=== PATIENT | male | born 1945 | race Caucasian/White ===

== ENCOUNTER → 2024-08-22 | Outpatient (CLI) | payer MEDICARE, SELFPAY ==
--- NOTE | 2024-08-22 12:15 | CT_ITS ---
PROCEDURE: EXTREMITY LOWER WITHOUT CONTRA 08/22/2024 REASON FOR EXAM: PAIN IN LEFT KNEE TECHNIQUE: Axial CT images of the left knee obtained with intravenous contrast. Coronal and Sagittal reconstruction series were provided. One or more dose reduction techniques were used (e.g., Automated exposure control, adjustment of the mA and/or kV according to patient size, use of iterative reconstruction technique). COMPARISON: None FINDINGS: See impression CT/Extremity Lower without Contra IMPRESSION: Advanced tricompartmental left knee osteoarthritis including near [id number] articulation, subchondral sclerosis/cysts and marginal osteophytes. Chondrocalcinosis. Small left knee joint effusion with mild synovial thickening. Small David's cyst. Vascular calcifications. Mild left hip osteoarthritis. Mild Achilles tendinopathy. 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 Reading Location: [facility]
== END | disposition home or self-care (01) ==
PROVIDERS: Referring Provider Specialist; Visit Provider Specialist
DX: Z01.810 Encounter for preprocedural cardiovascular examination (principal); M17.11 Unilateral primary osteoarthritis, right knee; M25.562 Pain in left knee; Z01.818 Encounter for other preprocedural examination
CPT/HCPCS: 73700

== ENCOUNTER 2024-09-23 06:56 | Observation (INO) | payer MEDICARE, SELFPAY ==
--- NOTE | 2024-08-22 11:53 | EKG12_ITS ---
Test Reason : PREOP Blood Pressure : */* mmHG Vent. Rate : 52 BPM Atrial Rate : 52 BPM P-R Int : 192 ms QRS Dur : 90 ms QT Int : 426 ms P-R-T Axes : 18 2 -4 degrees QTcB Int : 396 ms Sinus bradycardia Otherwise normal ECG Confirmed by Edgar Epperson ([id number]), editor news MAXWELL ALVAREZ ([id number]) on 08/23/2024 12:50:35 PM Referred By: Brody Herrera Confirmed By: Edgar Epperson
--- NOTE | 2024-08-26 15:13 | PAT.ANESEVAL ---
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 When Was Last Pacemaker Check QUESTION #4 FULL TEXT: You/Your Family Experience fever (hyperthermia) with Anesthesia Last Oral Intake Last Oral intake: Last Oral Intake NPO since Meds taken in AM with sips of water? Meds patient instructed to take am of surgery PONV PONV - metal engraver: PONV - metal engraver Female No 08/26/24 10:24 HX of Motion Sickness No 08/26/24 10:24 HX of N/V After Surgery No 08/26/24 10:24 Non-Smoker Yes 08/26/24 10:24 Duration of Surgery greater Yes 08/26/24 10:24 than 60 minutes Number of Risk Factors 2 08/26/24 10:24 PONV Score Moderate Risk 08/26/24 10:24 Respiratory Assessment Respiratory Assessment - metal engraver: Respiratory Tract Infection Hx - metal engraver Hx Respiratory Tract Infection No 08/26/24 10:24 STOP Sleep Apnea STOP Sleep Apnea - metal engraver: STOP Sleep Apnea - metal engraver Hx Hypertension Yes 08/26/24 10:24 Hx Sleep Apnea No 08/26/24 10:24 CPAP BIPAP Do you snore loudly (louder No 08/26/24 10:24 than talking or can be heard Do you often feel tired/ No 08/26/24 10:24 fatigued/ sleepy during daytime? Has anyone observed you stop No 08/26/24 10:24 breathing during sleep? STOP Results Negative 08/26/24 10:24 QUESTION #5 FULL TEXT : Do you snore loudly (louder than talking or can be heard through closed doors)? 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 Specify any problems Hx of Preganancy in last 3 N/A 08/26/24 10:24 Months Nurse Filling Out Transfusion JZOLLINGE 08/26/24 10:24 & Questions: Date: 08/26/24 08/26/24 10:24 Time: 10:34 08/26/24 10:24 Patient unable to answer at this time (ie. confused, unrespo /Reproduction History /Reproductive History - metal engraver: /Reproductive Hx- metal engraver Hx Now No 08/26/24 10:24 Gestational Age (in weeks): EDC: Hx Hx Para Hx Section SAB No 08/26/24 10:24 PFSH Medical History Alcohol use Prostate disease High cholesterol Non-smoker Allergy/AdvReac Type Severity Reaction Status Date / Time No Known Allergies Allergy Verified 08/26/24 10:05 Surgical History (Updated 08/26/24 @ 10:24 by Cassandra Olivares) Hx of repair of ear bone Hx of colonoscopy History of heart surgery Social History Smoking Status: Never smoker Audit: Pertinent Findings Pertinent Findings EKG Perinent findings: 08/22/2024. Sinus bradycardia at 52 bpm. Additional pertinent findings: Patient is status post cardiac stent in 2009. Recommendation Anesthesia Recommendation Anesthesia recommendation: OPTIMIZED for anesthesia
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
[2024-09-23] VITALS (16 sets, daily range): BP systolic 115–173; BP diastolic 69–106; PULSE 60–66; RESP 14–18; TEMP 35.8–37.1; O2SAT 94–100; BMI 27.8
--- OUTSIDE RECORDS SUMMARY | 2024-09-23 06:29 | XMS RPT_ITS | CCD ---
Author Organization [facility] Care Team Providers Care Repair Miller Name Role Phone Lalito Joe Lynn Primary Care Provider Jorge Nguyen Primary Care Provider Jorge Nguyen MD Primary Care Provider JORGE NGUYEN Primary Care Unavaila ble JENNIFER VARGAS Attending Unavailable AMICONE, PINA Attending Unavailable AMICONE, PINA Primary Care Unavailable AMICONE, PINA Admitting Unavailable Jorge Nguyen MD Primary Care Provider Dina DECKER, Cristina Primary Care Provider Dr. Hortensia Reyes MD Attending Provider [phone] Hortensia Reyes MD Referring Provider [phone] DINA EVANS Primary Care Provider Unavailabl THI Hopkins Attending Unavailable WENDY, JORGE MOHAN Primary Care Unavaila ble DINA, CRISTINA Primary Care Unavailable HORTENSIA REYES Referring Unavailable DINA, CRISTINA Primary Care Unavailable ANDREE PROCTOR Attending Unavailable PAGE, CRISTINA Primary Care Unavailable LEONOR HOOD Referring Unavailable PAGE, CRISTINA Primary Care Unavailable VIKTOR MCGRATH Attending Unavailable DINA, CRISTINA Primary Care Unavailable DINA, CRISTINA Primary Care Unavailable THI GONSALEZ Attending Unavailable DINA, CRISTINA Primary Care Unavailable CRISTINA ARROYO Attending Unavailable DINA, CRISTINA Primary Care Unavailable Jennifer Epperson Attending Unavailable Hortensia Reyes Referring Unavailable Edgar Jones Primary Care Unavailable Hortensia Reyes Attending Unavailable Hortensia Reyes Referring Unavailable Edgar Jones Primary Care Unavailable Hortensia Reyes Attending Unavailable Hortensia Reyes Referring Unavailable Medications Current Medications Medication Drug Class(es) Dates Sig (Normalized) Sig (Original) aspirin 81 mg delayed release oral tablet (12 sources) Platelet Aggregation Inhibitor, Nonsteroidal Anti-inflammatory Drug take 1 tablet by mouth once daily aspirin, enteric coated (ASPIRIN, ENTERIC COATED) 81 mg EC tablet Take 81 mg by mouth once daily. Active Comment on above: Take 81 mg by mouth once daily. hydroCHLOROthiazide 25 mg / losartan potassium 100 mg oral tablet (12 sources) Thiazide Diuretic, Angiotensin 2 Receptor Tanja Start: 09-25-2022 take 1 tablet by mouth once daily losartan-hydroC HLOROthiazide (HYZAAR) 100-25 mg per tablet Take 1 tablet by mouth once daily. 09/25/2022 Active Start: 09-25-2022 losartan-hydro CHLOROthiazide (HYZAAR) 100-25 mg per tablet iv contrast (will be provided with radiology test) (1 source) Start: 05-18-2023 End: 05-19-2023 iv contrast (will be provided with radiology test) Indications: Elevated prostate specific antigen (PSA) MRI Prostate Inject, intravenously, once for 1 dose. No IV access, insert saline lock prior to the beginning of sedation, infusion, injection of imaging exam. Discontinue saline lock post exam. If Pt. has a central line or IVAD, may access for administration according to line specific nursing protocol. Once exam is complete flush line and de-access according to line specific nursing protocol in the MR contrast administration guidelines link. 1 Each 0 05/18/2023 05/19/2023 Active Comment on above: MRI Prostate Inject, intravenously, once for 1 dose. No IV access, insert saline lock prior to the beginning of sedation, infusion, injection of imaging exam. Discontinue saline lock post exam. If Pt. has a central line or IVAD, may access for administration according to line specific nursing protocol. Once exam is complete flush line and de-access according to line specific nursing protocol in the MR contrast administration guidelines link. metoprolol tartrate 25 mg oral tablet (15 sources) beta-Adrenergic Tanja Start: 05-10-2024 take 1 tablet by mouth twice daily metoprolol tartrate, short acting, (LOPRESSOR) 25 mg tablet Take 25 mg by mouth two times a day. 05/10/2024 Active Start: 08-16-2022 End: 09-02-2024 take 1 tablet by mouth twice daily metoprolol succinate ER (TOPROL XL) 25 mg 24 hr tablet Take 25 mg by mouth twice daily. 08/16/2022 09/02/2024 Discontinued Start: 07-14-2020 End: 11-14-2022 metoprolol tartrate, short a cting, (LOPRESSOR) 25 mg tablet Comment on above: Take 25 mg by mouth twice daily. rosuvastatin calcium 20 mg oral tablet (2 sources) HMG-CoA Reductase Inhibitor Start: take 1 tablet by mouth once rosuvastatin (CRESTOR) 20 mg tablet Take 1 tablet by mouth every afternoon. 04/26/2024 Active Completed/Discontinued Medications Medication Drug Class(es) Dates Sig (Normalized) Sig (Original) atorvastatin 40 mg oral tablet (8 sources) HMG-CoA Reductase Inhibitor Start: 06-12-2020 End: 12-20-2023 atorvastatin (LIPITOR) 40 mg tablet 06/12/2020 12/20/2023 Discontinued (Other) glucosamine sulfate 500 mg oral tablet (12 sources) End: 09-02-2024 take 1 tablet by mouth once daily Glucosamine Sulfate (GLUCOSAMINE) 500 mg tab Take 1 tablet by mouth once daily. 09/02/2024 Discontinued Comment on above: Take 1 tablet by casimiro th once daily. Lidocaine (7 sources) Antiarrhythmic, Amide Local Anesthetic Start: 05-15-2024 End: 05-15-2024 lidocaine 20 mg/mL (2 %) 4 mL injection (XYLOCAINE) Start: 05-15-2024 End: 05-15-2024 4 mL, Injection - FOR ORTHO USE ONLY, ONCE, 1 dose, Starting on Mon05/15/24 at 1041, Until Mon05/15/24 at 1041 Start: 02-14-2024 End: 02-14-2024 lidocaine 20 mg/mL (2 %) 3 m L injection (XYLOCAINE) Start: 02-14-2024 End: 02-14-2024 3 mL, Injection - FOR ORTHO USE ONLY, ONCE, 1 dose, Starting on Mon02/14/24 at 1004, Until Mon02/14/24 at 1004 Start: 11-10-2023 End: 11-10-2023 lidocaine 20 mg/mL (2 %) 3 m L injection (XYLOCAINE) Start: 07-05-2023 End: 07-05-2023 lidocaine (PF) 20 mg/mL (2 % ) 3 mL injection (XYLOCAINE) losartan potassium 100 mg oral tablet (1 source) Angiotensin 2 Receptor Tanja Start: 06-12-2020 End: 11-14-2022 losartan (COZAAR) 100 mg tablet prednisoLONE acetate 10 mg/ml ophthalmic suspension (5 sources) Corticosteroid Start: 11-21-2023 End: 09-02-2024 prednisoLONE acetate (PRED FORTE) 1 % ophthalmic suspension as needed. 11/21/2023 09/02/2024 Discontinued predniSONE 10 mg oral tablet (11 sources) Start: 09-25-2022 End: 05-15-2024 take 5 mg by mouth every other day predniSONE (DELTASONE) 10 mg tablet Take 5 mg by mouth every other day. 09/25/2022 05/15/2024 Discontinued Start: 09-25-2022 take 5 mg by mouth once daily predniSONE (DELTASONE) 10 mg tablet Take 5 mg by mouth once daily. 09/25/2022 Active Start: 09-25-2022 predniSONE (DE LTASONE) 10 mg tablet 1 ml triamcinolone acetonide 40 mg/ml injection (7 sources) Corticosteroid Start: 05-15-2024 End: 05-15-2024 triamcinolone acetonide 40 mg injection (KeNALog 40) Start: 05-15-2024 End: 05-15-2024 40 mg, Injection - FOR ORTHO USE ONLY, ONCE, 1 dose, Starting on Mon05/15/24 at 1041, Until Mon05/15/24 at 1041 Start: 02-14-2024 End: 02-14-2024 triamcinolone acetonide 40 m g injection (KeNALog 40) Start: 02-14-2024 End: 02-14-2024 40 mg, Injection - FOR ORTHO USE ONLY, ONCE, 1 dose, Starting on Mon02/14/24 at 1004, Until Mon02/14/24 at 1004 Start: 11-10-2023 End: 11-10-2023 triamcinolone acetonide 40 m g injection (KeNALog 40) Start: 07-05-2023 End: 07-05-2023 triamcinolone acetonide 40 m g injection (KeNALog 40) Problems Active Problems Problem Classification Problem Date Documented Da te Episodic/Chronic Coronary atherosclerosis and other heart disease (8 sources) Coronary arteriosclerosis; Translations: [Atherosclerotic heart disease of hughes coronary artery without angina pectoris] Onset: 12-20-2023 12-20-2023 Chronic Diseases of white blood cells (1 source) Elevated white blood cell count, unspecified; Translations: [Elevated white blood cell count, unspecified] Onset: 10-18-2023 Chronic Disorders of lipid metabolism (1 source) Hyperlipidemia, unspecified; Translations: [Hyperlipidemia, unspecified hyperlipidemia type] Onset: 06-13-2024 Chronic Essential hypertension (8 sources) Hypertensive disorder; Translations: [Essential (primary) hypertension] Onset: 12-20-2023 12-20-2023 Chronic Osteoarthritis (13 sources) Osteoarthritis of left knee joint; Translations: [Unilateral primary osteoarthritis, left knee] Onset: 12-20-2023 07-05-2023 Chronic Other non-traumatic joint disorders (1 source) Pain in right knee; Translations: [Pain in right knee] Onset: 10-18-2023 Episodic Unclassified (1 source) Established Patient Onset: 05-15-2024 Past or Other Problems Problem Classification Problem Date Documented Da te Episodic/Chronic Administrative/social admission (3 sources) First encounter by subject; Translations: [Persons encountering health services in other specified circumstances] Onset: 12-20-2023 12-20-2023 Episodic Immunizations and screening for infectious disease (4 sources) Patient encounter status; Translations: [Encounter for immunization] Onset: 12-20-2023 12-20-2023 Episodic Other male genital disorders (12 sources) Phimosis; Translations: [Phimosis] Onset: 11-14-2022 11-14-2022 Episodic Other screening for suspected conditions (not mental disorders or infectious disease) (14 sources) Raised prostate specific antigen; Translations: [Elevated prostate specific antigen [PSA]] Onset: 11-14-2022 11-14-2022 Episodic Residual codes; unclassified (5 sources) For resuscitation; Translations: [Other specified health status] Onset: 12-20-2023 12-20-2023 Episodic Screening and history of mental health and substance abuse codes (2 sources) Encounter for screening for depression; Translations: [Encounter for screening examination for other mental health and behavioral disorders] Onset: 12-20-2023 Episodic Results Test Name Value Interpretation Reference Range Facility STAPHYLOCOCCUS AUREUS AND MR SA SCREEN, PCR, NASALon 09-18-2024 S. aureus and MRSA panel JOSE ALBERTO+probe (Nose) Not detected Normal Not Detected [facility] Comment on above: Order Comment: Speci men Type: SWABOrdering Facility: External Submitter Address: , , Performed By: #### S APCR ####[facility] LABCLIA [id number] [place] [address] [place] Albumin SerPl-mCncon 025 Albumin [Mass/Vol] 4.1 g/dL Normal 3.9-4.9 [facility] Comment on above: Order Comment: Speci men Type: BLOOD SPECIMENOrdering Facility: [facility] Address: [address] [place] [address] Performed By: #### 2 4321-2, 1750-10 ####[facility] LABCLIA [id number] [place] [address] [place] Basic metabolic 2000 panelon 09-05-2024 Anion gap [Moles/Vol] 7 mmol/L Low 8-15 [facility] Comment on above: Order Comment: Speci men Type: BLOOD SPECIMENOrdering Facility: [facility] Address: [address] [place] [address] Performed By: #### 2 432-2, 1750-10 ####[facility] LABIA [id number] [place] [address] [place] Calcium [Mass/Vol] 9.8 mg/dL Normal 8.5-10.2 [facility] Comment on above: Order Comment: Speci men Type: BLOOD SPECIMENOrdering Facility: [facility] Address: [address] [place] [address] Performed By: #### 2 432-2, 1750-10 ####[facility] LABCLIA [id number] [place] [address] [place] Chloride [Moles/Vol] 102 mmol/L Normal 98-107 [facility] Comment on above: Order Comment: Speci men Type: BLOOD SPECIMENOrdering Facility: [facility] Address: [address] [place] [address] Performed By: #### 2 2, 1750-10 ####[facility] LABCLIA [id number] [place] [address] [place] CO2 [Moles/Vol] 27 mmol/L Normal 22-30 [facility] Comment on above: Order Comment: Speci men Type: BLOOD SPECIMENOrdering Facility: [facility] Address: [address] [place] [address] Performed By: #### 2 2, 1750-10 ####[facility] LABIA [id number] [place] [address] [place] Creatinine [Mass/Vol] 0.89 mg/dL Normal 0.73-1.22 [facility] Comment on above: Order Comment: Speci men Type: BLOOD SPECIMENOrdering Facility: [facility] Address: [address] [place] [address] Performed By: #### 2 4320-05, 1750-10 ####[facility] [id number] [place] [address] [place] [facility] Creatinine and Glomerular filtration rate.predicted panel (S/P/Bld) 88 mL/min/1.73m??? Normal >=60 [facility] Comment on above: Order Comment: Speci men Type: BLOOD SPECIMENOrdering Facility: [facility] Address: [address] [place] [address] Result Comment: Jacqueline mated Glomerular Filtration Rate (eGFR) is calculated using the 2020 CKD-EPI creatinine equation. This equation utilizes serum creatinine, sex, and age as parameters. The creatinine assay has traceable calibration to isotope dilution-mass spectrometry. Refer to KDIGO guidelines for clinical interpretation. In patients with unstable renal function, e.g. those with acute kidney injury, the eGFR may not accurately reflect actual GFR. Performed By: #### 2 2, 1750-10 ####[facility] LABCLIA [id number] [place] [address] [place] Glucose [Mass/Vol] 119 mg/dL High 74-99 [facility] Comment on above: Order Comment: Speci men Type: BLOOD SPECIMENOrdering Facility: [facility] Address: [address] [place] [address] Result Comment: The [place] Diabetes Association (ADA) provides guidance for cutoff values for fasting glucose and random glucose. The ADA defines fasting as no caloric intake for at least 8 hours. Fasting plasma glucose results between 100 to 125 mg/dL indicate increased risk for diabetes (prediabetes). Fasting plasma glucose results greater than or equal to 126 mg/dL meet the criteria for diagnosis of diabetes. In the absence of unequivocal hyperglycemia, results should be confirmed by repeat testing. In a patient with classic symptoms of hyperglycemia or hyperglycemic crisis, random plasma glucose results greater than or equal to 200 mg/dL meet the criteria for diagnosis of diabetes. Reference: Standards of Medical Care in Diabetes 2016, [place] Diabetes Association. Diabetes Care. 2016.39(Suppl 1). Performed By: #### 2 43204-18, 1750-10 ####[facility] [id number] [place] [address] [place] Potassium [Moles/Vol] 4.2 mmol/L Normal 3.7-5.1 [facility] Comment on above: Order Comment: Alen dylan Type: BLOOD SPECIMENOrdering Facility: [facility] Address: [address] [place] [address] Performed By: #### 2 4320-05, 1750-10 ####[facility] [id number] [place] [address] [place] Sodium [Moles/Vol] 136 mmol/L Normal 136-144 [facility] Comment on above: Order Comment: Alen dylan Type: BLOOD SPECIMENOrdering Facility: [facility] Address: [address] [place] [address] Performed By: #### 2 4320-05, 1750-10 ####[facility] LABIA [id number] [place] [address] [place] Urea nitrogen [Mass/Vol] 15 mg/dL Normal 9-24 [facility] Comment on above: Order Comment: Alen dylan Type: BLOOD SPECIMENOrdering Facility: [facility] Address: [address] [place] [address] Performed By: #### 2 4321-2, 1751-7 ####[facility] LABCLIA [id number] [place] [address] [place] CBC W Auto Differential pane l (Bld)on 09-05-2024 Basophils (Bld) [#/Vol] 0.04 10*3/uL Normal <0.11 [facility] Comment on above: Order Comment: Speci men Type: BLOOD SPECIMEN Ordering Facility: [facility] Address: [address] [place] [address] Performed By: #### 5 7021-8 #### [facility] LAB CLIA [id number] [address] [place] [address] [place] Basophils/100 WBC (Bld) 0.6 % Normal [facility] Comment on above: Order Comment: Speci men Type: BLOOD SPECIMEN Ordering Facility: [facility] Address: [address] [place] [address] Performed By: #### 5 7021-8 #### [facility] CLIA [id number] [address] [place] [address] [place] Differential cell count method Nom (Bld) Auto Normal [facility] Comment on above: Order Comment: Speci men Type: BLOOD SPECIMEN Ordering Facility: [facility] Address: [address] [place] [address] Performed By: #### 5 7021-8 #### [facility] CLIA [id number] [address] [place] [address] [place] Eosinophils (Bld) [#/Vol] 0.15 10*3/uL Normal <0.46 [facility] Comment on above: Order Comment: Speci men Type: BLOOD SPECIMEN Ordering Facility: [facility] Address: [address] [place] [address] Performed By: #### 5 7021-8 #### [facility] CLIA [id number] [address] [place] [address] [place] Eosinophils/100 WBC (Bld) 2.1 % Normal [facility] Comment on above: Order Comment: Speci men Type: BLOOD SPECIMEN Ordering Facility: [facility] Address: [address] [place] [address] Performed By: #### 5 7021-8 #### [facility] CLIA [id number] [address] [place] [address] [place] Erythrocyte distribution width (RBC) [Ratio] 12.6 % Normal 11.5-15.0 [facility] Comment on above: Order Comment: Speci men Type: BLOOD SPECIMEN Ordering Facility: [facility] Address: [address] [place] [address] Performed By: #### 5 7021-8 #### [facility] CLIA [id number] [address] [place] [address] [place] Hematocrit (Bld) [Volume fraction] 42.5 % Normal 39.0-51.0 [facility] Comment on above: Order Comment: Speci men Type: BLOOD SPECIMEN Ordering Facility: [facility] Address: [address] [place] [address] Performed By: #### 5 7021-8 #### [facility] CLIA [id number] [address] [place] [address] [place] Hemoglobin (Bld) [Mass/Vol] 14.3 g/dL Normal 13.0-17.0 [facility] Comment on above: Order Comment: Speci men Type: BLOOD SPECIMEN Ordering Facility: [facility] Address: [address] [place] [address] Performed By: #### 5 7021-8 #### [facility] CLIA [id number] [address] [place] [address] [place] Immature granulocytes (Bld) [#/Vol] 10*3/uL Normal <0.10 [facility] Comment on above: Order Comment: Speci men Type: BLOOD SPECIMEN Ordering Facility: [facility] Address: [address] [place] [address] Performed By: #### 5 7021-8 #### [facility] CLIA [id number] [address] [place] [address] [place] Immature granulocytes/100 WBC (Bld) 0.3 % Normal [facility] Comment on above: Order Comment: Speci men Type: BLOOD SPECIMEN Ordering Facility: [facility] Address: [address] [place] [address] Performed By: #### 5 7021-8 #### [facility] CLIA [id number] [address] [place] [address] [place] Lymphocytes (Bld) [#/Vol] 2.32 10*3/uL Normal 1.00-4.00 [facility] Comment on above: Order Comment: Speci men Type: BLOOD SPECIMEN Ordering Facility: [facility] Address: [address] [place] [address] Performed By: #### 5 7021-8 #### [facility] CLIA [id number] [address] [place] [address] [place] Lymphocytes/100 WBC (Bld) 32.7 % Normal [facility] Comment on above: Order Comment: Speci men Type: BLOOD SPECIMEN Ordering Facility: [facility] Address: [address] [place] [address] Performed By: #### 5 7021-8 #### [facility] CLIA [id number] [address] [place] [address] [place] MCH (RBC) [Entitic mass] 29.5 pg Normal 26.0-34.0 [facility] Comment on above: Order Comment: Speci men Type: BLOOD SPECIMEN Ordering Facility: [facility] Address: [address] [place] [address] Performed By: #### 5 7021-8 #### [facility] CLIA [id number] [address] [place] [address] [place] MCHC (RBC) [Mass/Vol] 33.6 g/dL Normal 30.5-36.0 [facility] Comment on above: Order Comment: Speci men Type: BLOOD SPECIMEN Ordering Facility: [facility] Address: [address] [place] [address] Performed By: #### 5 7021-8 #### [facility] CLIA [id number] [address] [place] [address] [place] MCV (RBC) [Entitic vol] 87.6 fL Normal 80.0-100.0 [facility] Comment on above: Order Comment: Speci men Type: BLOOD SPECIMEN Ordering Facility: [facility] Address: [address] [place] [address] Performed By: #### 5 7021-8 #### [facility] CLIA [id number] [address] [place] [address] [place] Monocytes (Bld) [#/Vol] 0.68 10*3/uL Normal <0.87 [facility] Comment on above: Order Comment: Speci men Type: BLOOD SPECIMEN Ordering Facility: [facility] Address: [address] [place] [address] Performed By: #### 5 7021-8 #### [facility] CLIA [id number] [address] [place] [address] [place] Monocytes/100 WBC (Bld) 9.6 % Normal [facility] Comment on above: Order Comment: Speci men Type: BLOOD SPECIMEN Ordering Facility: [facility] Address: [address] [place] [address] Performed By: #### 5 7021-8 #### [facility] CLIA [id number] [address] [place] [address] [place] Neutrophils (Bld) [#/Vol] 3.88 10*3/uL Normal 1.45-7.50 [facility] Comment on above: Order Comment: Speci men Type: BLOOD SPECIMEN Ordering Facility: [facility] Address: [address] [place] [address] Performed By: #### 5 7021-8 #### [facility] CLIA [id number] [address] [place] [address] [place] Neutrophils/100 WBC (Bld) 54.7 % Normal [facility] Comment on above: Order Comment: Speci men Type: BLOOD SPECIMEN Ordering Facility: [facility] Address: [address] [place] [address] Performed By: #### 5 7021-8 #### [facility] CLIA [id number] [address] [place] [address] [place] Nucleated RBC (Bld) [#/Vol] 10*3/uL Normal <0.01 [facility] Comment on above: Order Comment: Speci men Type: BLOOD SPECIMEN [facility] [facility] Address: [address] [place] [address] Performed By: #### 5 7021-8 #### [facility] CLIA [id number] [address] [place] [address] [place] Nucleated RBC/100 WBC (Bld) [Ratio] 0.0 /100 WBC Normal [facility] Comment on above: Order Comment: Speci men Type: BLOOD SPECIMEN [facility]ing Facility[facility] Address: [address] [place] [address] Performed By: #### 5 7021-8 #### [facility] CLIA [id number] [address] [place] [address] [place] Platelet mean volume (Bld) [Entitic vol] 10.2 fL Normal 9.0-12.7 [facility][1] Comment on above: Order Comment: Speci men Type: BLOOD SPECIMEN Ordering Facility: [facility] Address: [address] [place] [address] Performed By: #### 5 7021-8 #### [facility] CLIA [id number] [address] [place] [address] [place] Platelets (Bld) [#/Vol] 252 10*3/uL Normal 150-400 [facility] Comment on above: Order Comment: Speci men Type: BLOOD SPECIMEN Ordering Facility: [facility] Address: [address] [place] [address] Performed By: #### 5 7021-8 #### [facility] CLIA [id number] [address] [place] [address] [place] RBC (Bld) [#/Vol] 4.85 10*6/uL Normal 4.20-6.00 [facility] Comment on above: Order Comment: Speci dylan Type: BLOOD SPECIMEN Ordering Facility: [facility] Address: [address] [place] [address] Performed By: #### 5 7021-8 #### [facility] CLIA [id number] [address] [place] [address] WBC (Bld) [#/Vol] 7.09 10*3/uL Normal 3.70-11.00 [facility] Comment on above: Order Comment: Speckemi dylan Type: BLOOD SPECIMEN Ordering Facility: [facility] Address: [address] [place] [address] Performed By: #### 5 7021-8 #### [facility] CLIA [id number] [address] [place] [address] OF [facility] MICHELLE QURESHI ([id number]) 1945 M Date Time Provider Department 09/05/24 CRISTINA ARROYO FMUPCE During your visit today, we recorded the following information about you: Lea Whiting 09/05/2024 1:50 PM Signed Courtney with [facility] calls She is faxing over cardiac clearance, labs, and EKG for the clearance to be signed. Clearance needs to state these results were reviewed. Thank you. yMa Freitas 09/06/2024 11:06 AM Signed Faxed surgical clearance and office note. Allergies As of Date: 09/05/2024 (No Known Allergies) Date Reviewed: 09/02/2024 Reviewed by: Beckie Hernández MA - Fully Assessed Reason for Visit: Medical Clearance [1983] Prescriptions as of 09/06/2024 - metoprolol tartrate, short acting, (LOPRESSOR) 25 mg tablet Take 25 mg by mouth two times a day. - rosuvastatin (CRESTOR) 20 mg tablet Take 1 tablet by mouth every afternoon. - losartan-hydroCHLOROth iazide (HYZAAR) 100-25 mg per tablet Take 1 tablet by mouth once daily. - aspirin, enteric coated (ASPIRIN, ENTERIC COATED) 81 mg EC tablet Take 81 mg by mouth once daily. Problem List As Of Date 09/05/2024 Noted Resolved Osteoarthritis of left knee [M17.12] 12/20/2023 Hypertension [I10] 12/20/2023 Coronary artery disease involving hughes stevens*12/20/2023 Full code status [Z78.9] 12/20/2023 Encounter Status:Closed by CRISTINA ARROYO on 09/05/24 [facility] Office Visit (FMUPCE ) MICHELLE QURESHI ([id number]) 1945 M Date Time Provider Department 09/02/24 9:00 AM ANDREE PROCTOR FMUPCE During your visit today, we recorded the following information about you: Pulse Blood pressure Weight Height 57/minute 116/66 84.5 kg 1.727 m Andree Proctor PA-C 09/02/2024 9:52 AM Signed CHIEF COMPLAINT: No chief complaint on file. SUBJECTIVE: Michelle Qureshi is a 78 year old male who presents for Pre-operative medical optimization. Proposed surgery: Robotic assisted left total knee arthroplasty Date of surgery: 09/23/24 Facility where surgery is to take place: Surgeon: Hortensia Reyes M.D. History of previous surgery: Yes, ulnar nerve and carpal tunnel release. Cardiac stent with angioplasty in 2000. History of complications with previous surgery or anesthesia: None History of cardiovascular disease: Hypertension, CAD History of pulmonary disease: None History of blood clots or bleeding disorder: None Pre-op testing completed: EKG completed 08/29/2024 showed sinus bradycardia with a ventricular rate of 52 BPM, otherwise normal EKG. Pre-operative lab work is to be completed 5 days prior to surgery. Pre-op appointment is scheduled with Yanira Johnson PA-C Functional Capacity: > 4 METs Concerns regarding upcoming surgery: None Current Outpatient Medications Medication Sig metoprolol tartrate, short acting, (LOPRESSOR) 25 mg tablet Take 25 mg by mouth two times a day. rosuvastatin (CRESTOR) 20 mg tablet Take 1 tablet by mouth every afternoon. prednisoLONE acetate (PRED FORTE) 1 % ophthalmic suspension as needed. losartan-hydroCHLOROth iazide (HYZAAR) 100-25 mg per tablet Take 1 tablet by mouth once daily. metoprolol succinate ER (TOPROL XL) 25 mg 24 hr tablet Take 25 mg by mouth twice daily. aspirin, enteric coated (ASPIRIN, ENTERIC COATED) 81 mg EC tablet Take 81 mg by mouth once daily. Glucosamine Sulfate (GLUCOSAMINE) 500 mg tab Take 1 tablet by mouth once daily. No current facility-administered medications for this visit. 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 FAMILY HISTORY Problem Relation Age of Onset Heart Attack Father Dementia Sister PAST SURGICAL HISTORY Procedure Laterality Date PAST SURGICAL HISTORY OF Right ear PRQ CARDIAC STENT W/ANGIO 1 VSL 2000 x 3 Social History Tobacco Use Smoking status: Never Smokeless tobacco: Never Vaping Use Vaping status: Never Used Substance Use Topics Alcohol use: Yes Comment: 1 beer daily Drug use: Never REVIEW OF SYSTEMS Review of Systems Constitutional: Negative for chills, fatigue and fever. HENT: Negative for congestion. Respiratory: Negative for cough, shortness of breath and wheezing. Cardiovascular: Negative for chest pain, palpitations and leg swelling. Gastrointestinal: Negative for abdominal pain, constipation, diarrhea and nausea. Musculoskeletal: Positive for arthralgias (left knee) and joint swelling (left knee). Negative for back pain, myalgias and neck pain. Skin: Negative for rash. Neurological: Negative for dizziness, weakness, numbness and headaches. Psychiatric/Behavioral : Negative for dysphoric mood. The patient is not nervous/anxious. OBJECTIVE BP 116/66 (BP Site: Left Arm, BP Position: Sitting, BP Cuff Size: Regular Adult) Pulse (!) 57 Ht 172.7 cm (5' 8) Wt 84.5 kg (186 lb 4.6 oz) SpO2 97% BMI 28.33 kg/m? Physical Exam Vitals and nursing note reviewed. Constitutional: Appearance: Normal appearance. He is not ill-appearing. HENT: Nose: Nose normal. Mouth/Throat: Mouth: Mucous membranes are moist. Pharynx: Oropharynx is clear. Eyes: Extraocular Movements: Extraocular movements intact. Conjunctiva/sclera: Conjunctivae normal. Pupils: Pupils are equal, round, and reactive to light. Cardiovascular: Rate and Rhythm: Normal rate and regular rhythm. Heart sounds: Normal heart sounds. Pulmonary: Effort: Pulmonary effort is normal. Breath sounds: Normal breath sounds. Abdominal: General: Bowel sounds are normal. Tenderness: There is no abdominal tenderness. Musculoskeletal: Cervical back: Normal range of motion. Right knee: Normal. Left knee: Swelling (diffuse, mild) and crepitus present. No deformity or erythema. Decreased range of motion (limted flexion and extension). No tenderness. Normal alignment, normal meniscus and normal patellar mobility. Neurological: General: No focal deficit present. Mental Status: He is alert and oriented to person, place, and time. Psychiatric: Mood and Affect: Mood normal. ASSESSMENT/PLAN: 1. Pre-op examination - ICD9: V72.84, ICD10: Z01.818 (primary diagnosis) - I reviewed and updated patient's past medical, surgical, family histor (more content not included)... 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 When Was Last Pacemaker Check QUESTION #4 FULL TEXT: You/Your Family Experience fever (hyperthermia) with Anesthesia Last Oral Intake Last Oral intake: Last Oral Intake NPO since Meds taken in AM with sips of water? 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 Has anyone observed you stop No 08/26/24 10:24 breathing during sleep? STOP Results Negative 08/26/24 10:24 QUESTION #5 FULL TEXT : Do you snore loudly (louder than talking or can be heard through closed doors)? 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 Specify any problems Hx of Preganancy in last 3 N/A 08/26/24 10:24 Months Nurse Filling Out Transfusion JZOLLINGE 08/26/24 10:24 Questions: Date: 08/26/24 08/26/24 10:24 Time: 10:34 08/26/24 10:24 Patient unable to answer at this time (ie. 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 Sinus bradycardia at 52 bpm. Additional pertinent findings: Patient is status post cardiac stent in 2009. Recommendation Anesthesia Recommendation Anesthesia recommendation: OPTIMIZED for anesthesia 08/26/24 1515 Date Yao Sofia Signature: Date CC: Signed Normal [facility] 12 Lead EKGon 08-22-2024 12 Lead EKG [facility] Cardiovascular Services [address] [place] [address] 12 Lead EKG 08/22/24 1232 MR#: [id number] Acct: [id number] Name: MICHELLE QURESHI Rep #: [id number] : 1945 78 From: Jennifer Epperson MD Attending Dr: Dr. Hortensia Reyes MD Status: [place] [facility] [place]ing Dr: Hortensia Reyes MD Date: 08/22/24 [place] [facility] Sex: M C Admitted: Test Reason : PREOP Blood Pressure : */* mmHG Vent. Rate : 52 BPM Atrial Rate : 52 BPM P-R Int : 192 ms QRS Dur : 90 ms QT Int : 426 ms P-R-T Axes : 18 2 -4 degrees QTcB Int : 396 ms Sinus bradycardia Otherwise normal ECG Confirmed by Jennifer Epperson ([id number]), editor publications BECKIE ALVAREZ ([id number]) on 08/23/2024 12:50:35 PM Referred By: Hortensia Reyes Confirmed By: Jennifer Epperson 08/23/24 1250 Date Jennifer Epperson MD CC: Dr. Hortensia Reyes MD; DINA EVANS Signed Normal [facility] Extremity Lower without Cont raon 08-22-2024 Extremity Lower without Contra [facility] Imaging Services [address] [place] [address] Extremity Lower without Contra MR#: [id number] Acct: [id number] Name: MICHELLE QURESHI Rep #: [id number] : 1945 M 78 From: Marciano Schwarz PCP: Status: REG CLI Study: Extremity Lower without Contra Date of Exam: 0 08/22/24 Exam# [id number] Ordering Dr: Hortensia Reyes MD PROCEDURE: EXTREMITY LOWER WITHOUT CONTRA 08/22/2024 REASON FOR EXAM: PAIN IN LEFT KNEE TECHNIQUE: Axial CT images of the left knee obtained with intravenous contrast. Coronal and Sagittal reconstruction series were provided. One or more dose reduction techniques were used (e.g., Automated exposure control, adjustment of the mA and/or kV according to patient size, use of iterative reconstruction technique). COMPARISON: None FINDINGS: See impression CT/Extremity Lower without Contra IMPRESSION: Advanced tricompartmental left knee osteoarthritis including near iggz-bf-[id number] articulation, subchondral sclerosis/cysts and marginal osteophytes. Chondrocalcinosis. Small left knee joint effusion with mild synovial thickening. Small David's cyst. Vascular calcifications. Mild left hip osteoarthritis. Mild Achilles tendinopathy. 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 Reading Location: [facility] CC: Dr. Hortensia Reyes MD; DINA EVANS Actuary Clerk: Signed Normal [facility] Hepatic function 2000 panelo n 06-13-2024 Albumin [Mass/Vol] 4.2 g/dL Normal 3.9-4.9 [facility] Comment on above: Order Comment: Speci men Type: BLOOD SPECIMENOrdering Facility: [facility] Address: [address] [place] [address] Performed By: #### 2 4325-3, 45181-0 ####[facility]CLIA [id number] [place] [address] [place] ALP [Catalytic activity/Vol] 59 U/L Normal 38-113 [facility] Comment on above: Order Comment: Speci men Type: BLOOD SPECIMENOrdering Facility: [facility] Address: [address] [place] [address] Performed By: #### 2 4325-3, 05497-4 ####[facility] [id number] [place] [address] [place] ALT [Catalytic activity/Vol] 17 U/L Normal 10-54 [facility] Comment on above: Order Comment: Speci men Type: BLOOD SPECIMENOrdering Facility: [facility] Address: [address] [place] [address] Performed By: #### 2 4325-3, 83140-2 ####[facility]CLIA [id number] [place] [address] [place] AST [Catalytic activity/Vol] 21 U/L Normal 14-40 [facility] Comment on above: Order Comment: Speci men Type: BLOOD SPECIMENOrdering Facility: [facility] Address: [address] [place] [address] Performed By: #### 2 4325-3, 47204-7 ####[facility] [id number] [place] [address] [place] Bilirubin [Mass/Vol] 0.6 mg/dL Normal 0.2-1.3 [facility] Comment on above: Order Comment: Speci men Type: BLOOD SPECIMENOrdering Facility: [facility] Address: [address] [place] [address] Performed By: #### 2 4325-3, 24067-2 ####[facility]CLIA [id number] [place] [address] [place] Bilirubin.conjugated [Mass/Vol] 0.1 mg/dL Normal <0.3 [facility] Comment on above: Order Comment: Speci men Type: BLOOD SPECIMENOrdering Facility: [facility] Address: [address] [place] [address] Result Comment: Resu lts may be falsely decreased due to interference by hemolysis. Suggest reorder as clinically indicated. Performed By: #### 2 4325-3, 55491-6 ####[facility]CLIA [id number] [place] [address] [place] Protein [Mass/Vol] 6.6 g/dL Normal 6.3-8.0 [facility] Comment on above: Order Comment: Speci men Type: BLOOD SPECIMENOrdering Facility: [facility] Address: [address] [place] [address] Performed By: #### 2 4325-3, 63676-8 ####[facility]CLIA [id number] [place] [address] [place] Lipid 1996 panelon 5 Cholesterol [Mass/Vol] 153 mg/dL Normal <200 [facility] Comment on above: Order Comment: Speci men Type: BLOOD SPECIMENOrdering Facility: [facility] Address: [address] [place] [address] Result Comment: <200 mg/dL, Desirable 200-239 mg/dL, Borderline high >239 mg/dL, High Performed By: #### 2 4325-3, 11185-3 ####[facility]CLIA [id number] [place] [address] [place] Cholesterol in HDL [Mass/Vol] 46 mg/dL Normal >39 [facility] Comment on above: Order Comment: Speci men Type: BLOOD SPECIMENOrdering Facility: [facility] Address: [address] [place] [address] Result Comment: 40-5 9 mg/dL, Acceptable >59 mg/dL, High: Negative risk factor for coronary heart disease <40 mg/dL, Low: Positive risk factor for coronary heart disease Performed By: #### 2 4325-3, 09088-0 ####[facility]CLIA [id number] [place] [address] [place] Cholesterol in LDL [Mass/Vol] 70 mg/dL Normal <100 [facility] Comment on above: Order Comment: Speci men Type: BLOOD SPECIMENOrdering Facility: [facility] Address: [address] [place] [address] Result Comment: <100 mg/dL, Optimal 100-129 mg/dL, Near optimal/above optimal 130-159 mg/dL, Borderline high 160-189 mg/dL, High >189 mg/dL, Very high Secondary prevention optimal LDL Cholesterol levels are recommended to be < 70 mg/dL Performed By: #### 2 4325-3, 46393-8 ####[facility] LABCLIA [id number] [place] [address] [place] Cholesterol in LDL/Cholesterol in HDL [Mass ratio] 1.52 {ratio} Normal <2.54 [facility] Comment on above: Order Comment: Dandrekemi richardson Type: BLOOD SPECIMENOrdering Facility: [facility] Address: [address] [place] [address] Result Comment: Refe rence: 1. National Cholesterol Education Program ATP III Guideline At-A-Glance Quick Desk Reference: National Heart, Lung, and Blood [place]. National Institutes of Health. 2001: NIH Publication No. 01-3305. 2. An International Atherosclerosis Society position paper: global recommendations for the management of dyslipidemia: executive summary, Atherosclerosis. 2014: 232(2):410-413. Performed By: #### 2 4325-3, 13319-8 ####[facility] [id number] [address] [place] Cholesterol in VLDL [Mass/Vol] 37 mg/dL High <30 [facility] Comment on above: Order Comment: Dandrekemi richardson Type: BLOOD SPECIMENOrdering Facility: [facility] Address: [address] [place] [address] Performed By: #### 2 4325-3, 49020-1 ####[facility] LABIA [id number] [address] [place] Cholesterol non HDL [Mass/Vol] 107 mg/dL Normal <130 [facility] Comment on above: Order Comment: Dandrekemi richardson Type: BLOOD SPECIMENOrdering Facility: [facility] Address: [address] [place] [address] Result Comment: <130 mg/dL, Optimal 130-159 mg/dL, Near optimal/above optimal 160-189 mg/dL, Borderline high 190-219 mg/dL, High >219 mg/dL, Very high Secondary prevention optimal non HDL Cholesterol levels are recommended to be <100 mg/dL Performed By: #### 2 4325-3, 73639-3 ####[facility] LABCLIA [id number] [place] [address] [place] Cholesterol.total/Ch olesterol in HDL [Mass ratio] 3.33 {ratio} Normal <5.10 [facility] Comment on above: Order Comment: Speci men Type: BLOOD SPECIMENOrdering Facility: [facility] Address: [address] [place] [address] Performed By: #### 2 4325-3, 58453-4 ####[facility] LABCLIA [id number] [address] [place] FASTING TIME 12 hrs Normal [facility][1] Comment on above: Order Comment: Speci men Type: BLOOD SPECIMENOrdering Facility: [facility] Address: [address] [place] [address] Performed By: #### 2 4325-3, 48958-8 ####[facility] [id number] [address] [place] Triglyceride [Mass/Vol] 186 mg/dL High <150 [facility] Comment on above: Order Comment: Speci men Type: BLOOD SPECIMENOrdering Facility: [facility] Address: [address] [place] [address] Result Comment: <150 mg/dL, Normal 150-199 mg/dL, Borderline high 200-499 mg/dL, High >499 mg/dL, Very high Performed By: #### 2 4325-3, 73288-4 ####[facility] LABCLIA [id number] [address] [place] CNOVon 05-15-2024 CNOV Office Visit (ORUPDO ) MICHELLE QURESHI ([id number]) 1945 M Date Time Provider Department 05/15/24 10:00 AM VIKTOR MCGRATH During your visit today, we recorded the following information about you: Pulse Blood pressure Weight Height 64/minute 101/62 83.5 kg 1.727 m Viktor Mcgrath MD 05/15/2024 10:43 AM Addendum NEW KNEE EXAM Brief History: The patient is a pleasant 78 year old male who presents to the office with left knee pain. The patient is new to my office. The patient is new to my office given the date of the last exam. The patient was last evaluated by Dr. Gonsalez 02/14/2024 including steroid injection for the same orthopaedic condition. I have personally reviewed prior documentation. I, TRA Rowe, transcribing for Dr. Viktor Mcgrath PAIN EVALUATION 05/15/2024 0953 Pain Level: 2 Pain Location: Knee-Left Description: Burning Frequency: Intermittent ORTHOPAEDIC HISTORY REVIEW: ALLERGIES No Known Allergies Current Outpatient Medications Medication Sig Dispense Refill metoprolol tartrate, short acting, (LOPRESSOR) 25 mg tablet Take 25 mg by mouth two times a day. rosuvastatin (CRESTOR) 20 mg tablet Take 1 tablet by mouth every afternoon. prednisoLONE acetate (PRED FORTE) 1 % ophthalmic suspension as needed. losartan-hydroCHLOROth iazide (HYZAAR) 100-25 mg per tablet Take 1 tablet by mouth once daily. metoprolol succinate ER (TOPROL XL) 25 mg 24 hr tablet Take 25 mg by mouth twice daily. aspirin, enteric coated (ASPIRIN, ENTERIC COATED) 81 mg EC tablet Take 81 mg by mouth once daily. Glucosamine Sulfate (GLUCOSAMINE) 500 mg tab Take 1 tablet by mouth once daily. No current facility-administered medications for this visit. PAST MEDICAL HISTORY Diagnosis Date Hypertension PAST SURGICAL HISTORY Procedure Laterality Date PAST SURGICAL HISTORY OF Right ear PRQ CARDIAC STENT W/ANGIO 1 VSL 2000 x 3 BP 101/62 Pulse 64 Ht 5' 8 (1.73m) Wt 184 lb (83.5kg) BMI 27.98 kg/(m2). Review of Systems Ortho Exam DIAGNOSTIC STUDIES: No new studies today. LARGE JOINT INJECTION/ARTHROCENTES IS: L knee joint Informed Consent Consent Obtained: Verbal Meredith Protocol A moment to CARE was completed. SIGN IN Patient/Surrogate Stated/Verified: Patient name, Date of , Relevant allergies and Intended procedure TIME OUT Relevant labs, photos, and/or imaging studies have been reviewed. Intended patient and procedure match the source document(s). Consent documented and matches the intended procedure. Correct side/site marked and visible. Medications required for procedure verified. Fire risk assessed and interventions discussed.05/15/2024 10:41 AM The procedure site was prepped in the usual sterile fashion. Site: L knee joint Medications: 40 mg triamcinolone acetonide 40 mg/mL ([id number], [id number], 08/15/25) Anesthetics: 4 mL lidocaine 20 mg/mL (2 %) ([id number], [id number], 06/15/24) Outcome: Tolerated well, no immediate complications Post-injection instructions were reviewed with the patient and the patient voiced understanding of these instructions. SIGN OUT All instruments, equipment, possible retained foreign bodies accounted for. Encounter Diagnosis ICD-10-CM 1. Primary osteoarthritis of left knee M17.12 PLAN: MEDICAL DECISION MAKING: TIME: I spent a total of 20 minutes on the date of the service which included preparing to see the patient, [id number] patient care, completing clinical documentation, obtaining and/or reviewing separately obtained history, performing a medically appropriate examination, counseling and educating the patient/family/caregiv er, ordering medications, tests, or procedures, and communicating results to the patient/family/caregiv er. TREATMENT RISK AND MORBIDITY: PAST MEDICAL HISTORY Diagnosis Date Hypertension PLAN: I spoke with the patient in the office where we discussed the patient's history, symptoms, physical exam findings and radiographic images. I have diagnosed the patient with left knee osteoarthritis. We spent time discussing potential treatment options including continuing conservative therapies versus surgical intervention. The patient was counseled on the pros and cons of each available option. Based on today's exam, I have recommended steroid injection into the left knee today. NSAID's, ice, heat, activity modification and physicial led therapy were also recommend for discomfort. Physical led therapy was initiated and general range of motion and strengthening exercises were described to the patient to be performed on a daily basis. All risks and benefits of steroid injection therapy was discussed with the patient. The medications I will be injecting were also thoroughly discussed with the patient including the difference in onset between the anesthetic and the steroid medi (more content not included)... [facility] LARGE JOINT INJECTION/ARTHRO CENTESIS: L knee jointon 05-15-2024 Lorene Greco LPN 05/15/2024 10:44 AM LARGE JOINT INJECTION/ARTHROCENTES IS: L knee joint Informed Consent Consent Obtained: Verbal Meredith Protocol A moment to CARE was completed. SIGN IN Patient/Surrogate Stated/Verified: Patient name, Date of , Relevant allergies and Intended procedure TIME OUT Relevant labs, photos, and/or imaging studies have been reviewed. Intended patient and procedure match the source document(s). Consent documented and matches the intended procedure. Correct side/site marked and visible. Medications required for procedure verified. Fire risk assessed and interventions discussed.05/15/2024 10:41 AM The procedure site was prepped in the usual sterile fashion. Site: L knee joint Medications: 40 mg triamcinolone acetonide 40 mg/mL ([id number], [id number], 08/15/25) Anesthetics: 4 mL lidocaine 20 mg/mL (2 %) ([id number], [id number], 06/15/24) Outcome: Tolerated well, no immediate complications Post-injection instructions were reviewed with the patient and the patient voiced understanding of these instructions. SIGN OUT All instruments, equipment, possible retained foreign bodies accounted for. [facility] LARGE JOINT INJECTION/ARTHRO CENTESIS: L knee jointOrdered By: Lorene Greco on 05-15-2024 [facility] Comprehensive metabolic 2000 panelon 04-23-2024 Albumin [Mass/Vol] 4.1 g/dL Normal 3.9-4.9 [facility] Comment on above: Order Comment: Alen richardson Type: BLOOD SPECIMEN Ordering Facility: [facility] Address: [address] [place] [address] [id number], [place] [address] Performed By: #### 2 4323-8, 94840-7 #### [facility] CLIA [id number] [address] [place] [address] [place] ALP [Catalytic activity/Vol] 74 U/L Normal 38-113 [facility] Comment on above: Order Comment: Alen richardson Type: BLOOD SPECIMEN Ordering Facility: [facility] Address: [address] [place] [address] [address], [place] [address] Performed By: #### 2 4323-8, 25539-8 #### [facility] CLIA [id number] [address] [place] [address] [place] ALT [Catalytic activity/Vol] 19 U/L Normal 10-54 [facility] Comment on above: Order Comment: Speci men Type: BLOOD SPECIMEN Ordering Facility: [facility] Address: [address] [place] [address] [id number] [address] Performed By: #### 2 4323-8, 73611-6 #### [facility] CLIA [id number] [address] [place] [address] [place] Anion gap [Moles/Vol] 13 mmol/L Normal 8-15 [facility] Comment on above: Order Comment: Speci men Type: BLOOD SPECIMEN Ordering Facility: [facility] Address: [address] [place] [address] [address], [place] [address] Performed By: #### 2 4323-8, 45460-6 #### [facility] CLIA [id number] [address] [place] [address] [place] AST [Catalytic activity/Vol] 18 U/L Normal 14-40 [facility] Comment on above: Order Comment: Speci men Type: BLOOD SPECIMEN Ordering Facility: [facility] Address: [address] [place] [address] [address], [place] [address] Performed By: #### 2 4323-8, 89341-8 #### [facility] CLIA [id number] [address] [place] [address] [place] Bilirubin [Mass/Vol] 0.6 mg/dL Normal 0.2-1.3 [facility] Comment on above: Order Comment: Speci men Type: BLOOD SPECIMEN Ordering Facility: [facility] Address: [address] [place] [address] [address], [place] [address] Performed By: #### 2 4323-8, 67456-5 #### [facility] CLIA [id number] [address] [place] [address] [place] Calcium [Mass/Vol] 9.8 mg/dL Normal 8.5-10.2 [facility] Comment on above: Order Comment: Speci men Type: BLOOD SPECIMEN Ordering Facility: [facility] Address: [address] [place] [address] [address], [place] [address] Performed By: #### 2 4323-8, 78661-4 #### [facility] CLIA [id number] [address] [place] [address] [place] Chloride [Moles/Vol] 102 mmol/L Normal 98-107 [facility] Comment on above: Order Comment: Speci men Type: BLOOD SPECIMEN Ordering Facility: [facility] Address: [address] [place] [address] [address], [place] [address] Performed By: #### 2 4323-8, 70744-7 #### [facility] CLIA [id number] [address] [place] [address] [place] CO2 [Moles/Vol] 28 mmol/L Normal 22-30 [facility] Comment on above: Order Comment: Speci men Type: BLOOD SPECIMEN Ordering Facility: [facility] Address: [address] [place] [address] [address], [place] [address] Performed By: #### 2 4323-8, 14907-1 #### [facility] CLIA [id number] [address] [place] [address] [place] Creatinine [Mass/Vol] 1.06 mg/dL Normal 0.73-1.22 [facility] Comment on above: Order Comment: Speci men Type: BLOOD SPECIMEN Ordering Facility: [facility] Address: [address] [place] [address] [address], [place] [address] Performed By: #### 2 4323-8, 86526-4 #### [facility] CLIA [id number] [address] [place] [address] [place] Creatinine and Glomerular filtration rate.predicted panel (S/P/Bld) 72 mL/min/1.73m??? Normal >=60 [facility] Comment on above: Order Comment: Speci men Type: BLOOD SPECIMEN Ordering Facility: [facility] Address: [address] [place] [address] [address], [place] [address] Result Comment: Jacqueline mated Glomerular Filtration Rate (eGFR) is calculated using the 2020 CKD-EPI creatinine equation. This equation utilizes serum creatinine, sex, and age as parameters. The creatinine assay has traceable calibration to isotope dilution-mass spectrometry. Refer to KDIGO guidelines for clinical interpretation. In patients with unstable renal function, e.g. those with acute kidney injury, the eGFR may not accurately reflect actual GFR. Performed By: #### 2 4323-8, 16576-2 #### [facility] CLIA [id number] [address] [place] [address] [place] Glucose [Mass/Vol] 122 mg/dL High 74-99 [facility] Comment on above: Order Comment: Alen richardson Type: BLOOD SPECIMEN Ordering Facility: [facility] Address: [address] [place] [address] [address] [address] Result Comment: The [place] Diabetes Association (ADA) provides guidance for cutoff values for fasting glucose and random glucose. The ADA defines fasting as no caloric intake for at least 8 hours. Fasting plasma glucose results between 100 to 125 mg/dL indicate increased risk for diabetes (prediabetes). Fasting plasma glucose results greater than or equal to 126 mg/dL meet the criteria for diagnosis of diabetes. In the absence of unequivocal hyperglycemia, results should be confirmed by repeat testing. In a patient with classic symptoms of hyperglycemia or hyperglycemic crisis, random plasma glucose results greater than or equal to 200 mg/dL meet the criteria for diagnosis of diabetes. Reference: Standards of Medical Care in Diabetes 2016, [place] Diabetes Association. Diabetes Care. 2016.39(Suppl 1). Performed By: #### 2 4323-8, 43872-5 #### [facility] CLIA [id number] [address] [place], [place] [id number] [place] Potassium [Moles/Vol] 4.1 mmol/L Normal 3.7-5.1 [facility] Comment on above: Order Comment: Alen richardson Type: BLOOD SPECIMEN Ordering Facility: [facility] Address: [address] [place], [place] [address], [place] [address] Performed By: #### 2 4323-8, 92174-5 #### [facility] CLIA [id number] [address] [place], [place] [address] [place] Protein [Mass/Vol] 6.9 g/dL Normal 6.3-8.0 [facility] Comment on above: Order Comment: Speci men Type: BLOOD SPECIMEN Ordering Facility: [facility] Address: [address] [place] [address] [address] [address] Performed By: #### 2 4323-8, 64820-7 #### [facility] CLIA [id number] [address] [place] [address] [place] Sodium [Moles/Vol] 143 mmol/L Normal 136-144 [facility] Comment on above: Order Comment: Speci men Type: BLOOD SPECIMEN Ordering Facility: [facility] Address: [address] [place] [address] [address] [address] Performed By: #### 2 4323-8, 42008-0 #### [facility] CLIA [id number] [address] [place] [address] [place] Urea nitrogen [Mass/Vol] 16 mg/dL Normal 9-24 [facility] Comment on above: Order Comment: Speci men Type: BLOOD SPECIMEN Ordering Facility: [facility] Address: [address] [place] [address] [address] [address] Performed By: #### 2 4323-8, 12562-3 #### [facility] CLIA [id number] [address] [place] [address] [place] Lipid 1996 panelon 5 Cholesterol [Mass/Vol] 270 mg/dL High <200 [facility] Comment on above: Order Comment: Speci men Type: BLOOD SPECIMENOrdering Facility: [facility] Address: [address] [place] [address] [address], [place] [address] Result Comment: <200 mg/dL, Desirable 200-239 mg/dL, Borderline high >239 mg/dL, High Performed By: #### 2 4323-8, 70703-3 ####[facility] [id number] [place] [address] [place] Cholesterol in HDL [Mass/Vol] 36 mg/dL Low >39 [facility] Comment on above: Order Comment: Speci men Type: BLOOD SPECIMENOrdering Facility: [facility] Address: [address] [place] [address] [id number], [place] [address] Result Comment: 40-5 9 mg/dL, Acceptable >59 mg/dL, High: Negative risk factor for coronary heart disease <40 mg/dL, Low: Positive risk factor for coronary heart disease Performed By: #### 2 4323-8, 61846-2 ####[facility] [id number] [place] [address] [place] Cholesterol in LDL [Mass/Vol] 190 mg/dL High <100 [facility] Comment on above: Order Comment: Speci men Type: BLOOD SPECIMENOrdering Facility: [facility] Address: [address] [place] [address] [id number], [place] [address] Result Comment: <100 mg/dL, Optimal 100-129 mg/dL, Near optimal/above optimal 130-159 mg/dL, Borderline high 160-189 mg/dL, High >189 mg/dL, Very high Secondary prevention optimal LDL Cholesterol levels are recommended to be < 70 mg/dL Performed By: #### 2 4323-8, 32733-1 ####[facility] [id number] [place] [address] [place] Cholesterol in LDL/Cholesterol in HDL [Mass ratio] 5.28 {ratio} High <2.54 [facility] Comment on above: Order Comment: Speci men Type: BLOOD SPECIMENOrdering Facility: [facility] Address: [address] [place] [address] [address], [place] [address] Result Comment: Refe rence: 1. National Cholesterol Education Program ATP III Guideline At-A-Glance Quick Desk Reference: National Heart, Lung, and Blood [place]. National Institutes of Health. 2001: NIH Publication No. 01-3305. 2. An International Atherosclerosis Society position paper: global recommendations for the management of dyslipidemia: executive summary, Atherosclerosis. 2014: 232(2):410-413. Performed By: #### 2 4323-8, 84836-5 ####[facility] [id number] [place] [address] [place] Cholesterol in VLDL [Mass/Vol] 44 mg/dL High <30 [facility] Comment on above: Order Comment: Speci men Type: BLOOD SPECIMENOrdering Facility: [facility] Address: [address] [place] [address] [address], [place] [address] Performed By: #### 2 4323-8, 59988-4 ####[facility] [id number] [place] [address] [place] Cholesterol non HDL [Mass/Vol] 234 mg/dL High <130 [facility] Comment on above: Order Comment: Speci men Type: BLOOD SPECIMENOrdering Facility: [facility] Address: [address] [place] [address] [address], [place] [address] Result Comment: <130 mg/dL, Optimal 130-159 mg/dL, Near optimal/above optimal 160-189 mg/dL, Borderline high 190-219 mg/dL, High >219 mg/dL, Very high Secondary prevention optimal non HDL Cholesterol levels are recommended to be <100 mg/dL Performed By: #### 2 4323-8, 23071-0 ####[facility] [id number] [place] [address] [place] Cholesterol.total/Ch olesterol in HDL [Mass ratio] 7.50 {ratio} High <5.10 [facility] Comment on above: Order Comment: Speci men Type: BLOOD SPECIMENOrdering Facility: [facility] Address: [address] [place] [address] [address], [place] [address] Performed By: #### 2 4323-8, 38033-9 ####[facility] [id number] [address] [place] FASTING TIME 12 hrs Normal [facility][1] Comment on above: Order Comment: Speci men Type: BLOOD SPECIMENOrdering Facility: [facility] Address: [address] [place] [address] [address], [place] [address] Performed By: #### 2 4323-8, 59447-7 ####[facility] [id number] [place] [address] [facility] [place] Triglyceride [Mass/Vol] 220 mg/dL High <150 [facility] Comment on above: Order Comment: Alen richardson Type: BLOOD SPECIMENOrdering Facility: [facility] Address: [id number], [place] [address] Result Comment: <150 mg/dL, Normal 150-199 mg/dL, Borderline high 200-499 mg/dL, High >499 mg/dL, Very high Performed By: #### 2 4323-8, 85524-9 ####[facility] [id number] [place] [address] [facility] CNPNon 02-22-2024 CNPN Telephone (FMUPCE) MICHELLE QURESHI ([id number]) 1945 M Date Time Provider Department 02/22/24 CRISTINA ARROYO [facility]UPCE During your visit today, we recorded the following information about you: Michele Velez 02/22/2024 9:25 AM Signed Benito with [facility] called today. She was wanting to confirm if this was an established patient with Dr. Arroyo. I advised I couldn't provide that over the phone and said to send a fax. Jennifer Craft 02/22/2024 9:35 AM Signed Patient called back and sated he received a call from [facility] that they were not able to confirm his PCP. Advised patient on the below message that we are not able to provide that information over the phone as they should submit a request for the information. He said he didn't care if we tell them but once again advised we would not be able to give that over the phone as we cannot confirm that is who is calling us. Thanks! Allergies As of Date: 02/22/2024 (No Known Allergies) Date Reviewed: 02/14/2024 Reviewed by: Rolando Mosqueda MA - Fully Assessed Reason for Visit: Confirming patient [Other] Prescriptions as of 02/22/2024 - prednisoLONE acetate (PRED FORTE) 1 % ophthalmic suspension as needed. - losartan-hydroCHLOROth iazide (HYZAAR) 100-25 mg per tablet Take 1 tablet by mouth once daily. - metoprolol succinate ER (TOPROL XL) 25 mg 24 hr tablet Take 25 mg by mouth twice daily. - predniSONE (DELTASONE) 10 mg tablet Take 5 mg by mouth every other day. - aspirin, enteric coated (ASPIRIN, ENTERIC COATED) 81 mg EC tablet Take 81 mg by mouth once daily. - Glucosamine Sulfate (GLUCOSAMINE) 500 mg tab Take 1 tablet by mouth once daily. Problem List As Of Date 02/22/2024 Noted Resolved Osteoarthritis of left knee [M17.12] 12/20/2023 Hypertension [I10] 12/20/2023 Coronary artery disease involving hughes stevens*12/20/2023 Full code status [Z78.9] 12/20/2023 Encounter Status:Closed by MICHELE VELEZ on 02/22/24 [facility] 02-14-2024 [facility] Office Visit (ORUPDO ) MICHELLE QURESHI ([id number]) 1945 M Date Time Provider Department 02/14/24 10:00 AM THI GONSALEZ During your visit today, we recorded the following information about you: Pulse Blood pressure Weight Height 60/minute 122/63 83.5 kg 1.727 m Thi Gonsalez MD 02/14/2024 10:48 AM Signed CC: Left knee pain. HPI: Patient returns for follow up of his left knee. He has noted recurrent pain over the last four weeks. He denies any additional injury. Sweetie Fonseca OCCA, transcribing for Thi Gonsalez MD Current Outpatient Medications Medication Sig prednisoLONE acetate (PRED FORTE) 1 % ophthalmic suspension as needed. losartan-hydroCHLOROth iazide (HYZAAR) 100-25 mg per tablet Take 1 tablet by mouth once daily. metoprolol succinate ER (TOPROL XL) 25 mg 24 hr tablet Take 25 mg by mouth twice daily. predniSONE (DELTASONE) 10 mg tablet Take 5 mg by mouth every other day. aspirin, enteric coated (ASPIRIN, ENTERIC COATED) 81 mg EC tablet Take 81 mg by mouth once daily. Glucosamine Sulfate (GLUCOSAMINE) 500 mg tab Take 1 tablet by mouth once daily. No current facility-administered medications for this visit. ALLERGIES No Known Allergies PAST MEDICAL HISTORY Diagnosis Date Hypertension PAST SURGICAL HISTORY Procedure Laterality Date PAST SURGICAL HISTORY OF Right ear PRQ CARDIAC STENT W/ANGIO 1 VSL 2000 x 3 FAMILY HISTORY Problem Relation Age of Onset Heart Attack Father Dementia Sister Review of Systems Social History Tobacco Use Smoking status: Never Smokeless tobacco: Never Vaping Use Vaping status: Never Used Substance Use Topics Alcohol use: Yes Comment: 1 beer daily Drug use: Never BP 122/63 Pulse 60 Ht 5' 8 (1.73m) Wt 184 lb 1.6 oz (83.5kg) BMI 28.00 kg/(m2). Exam: Const: Appears healthy. No signs of distress. Alert. Patient is cooperative. CV: Good capillary refill. Knees: Exam of the left knee shows no joint effusion. No soft tissue swelling. No warmth nor erythema. There is no palpable tenderness. Motion is 0 to 130 degrees with good strength. No posterior calf pain. Skin: Skin warm with good capillary refill. No visible rash or suspicious lesions. Neuro: Sensation intact to light touch. Dx Studies: No new studies today. Impression: Left knee osteoarthritis. Plan: Treatment options have been discussed including therapy, steroid injection, and possibly surgery. Patient wishes to proceed with a steroid injection. Noting risks and potential benefits, and following Betadine prep, 40mg. of Kenalog and 2% Lidocaine were carefully injected anteromedially into the left knee with good tolerance. Precautions have been given. The office is to be notified immediately with any adverse reactions or concerns. Return in three months. LARGE JOINT INJECTION/ARTHROCENTES IS: L knee joint Informed Consent Consent Obtained: Verbal Meredith Protocol A moment to CARE was completed. SIGN IN Personnel directly involved with the procedure wore the appropriate PPE. Special Equipment: N/A Patient/Surrogate Stated/Verified: Patient name, Date of , Relevant allergies and Intended procedure TIME OUT Intended patient and procedure match the source document(s). Consent documented and matches the intended procedure. Correct side/site marked and visible. Medications required for procedure verified. 02/14/2024 10:04 AM The procedure site was prepped in the usual sterile fashion. Site: L knee joint Medications: 40 mg triamcinolone acetonide 40 mg/mL Anesthetics: 3 mL lidocaine 20 mg/mL (2 %) Outcome: Tolerated well, no immediate complications Post-injection instructions were reviewed with the patient and the patient voiced understanding of these instructions. SIGN OUT Post-procedure follow-up management communicated and Plan of Care Visit completed when applicable The information in this document was created with the assistance of TRA Rowe. I, THI GONSALEZ M.D. , have reviewed and approved this document for accuracy. Thi Gonsalez M.D. TLT/ Allergies As of Date: 02/14/2024 (No Known Allergies) Date Reviewed: 02/14/2024 Reviewed by: Rolando Mosqueda MA - Fully Assessed Reason for Visit: Established Patient [175] Primary Visit Diagnosis:Primary osteoarthritis of left knee [M17.12] Order(s):LARGE JOINT INJECTION/ARTHROCENTES IS: L knee joint [KEH591] Order #: [id number] [] lidocaine 20 mg/mL (2 %) 3 mL injection (XYLOCAINE)Disp: Rfl: [] triamcinolone acetonide 40 mg injection (KeNALog 40)Disp: Rfl: Prescriptions as of 02/15/2024 - prednisoLONE acetate (PRED FORTE) 1 % ophthalmic suspension as needed. - losartan-hydroCHLOROth iazide (HYZAAR) 100-25 mg per tablet Take 1 tablet by mouth once daily. - metoprolol succinate ER (TOPROL XL) 25 mg 2 (more content not included)... [facility] LARGE JOINT INJECTION/ARTHRO CENTESIS: L knee jointon 02-14-2024 Thi Gonsalez MD 02/14/2024 10:48 AM LARGE JOINT INJECTION/ARTHROCENTES IS: L knee joint Informed Consent Consent Obtained: Verbal Meredith Protocol A moment to CARE was completed. SIGN IN Personnel directly involved with the procedure wore the appropriate PPE. Special Equipment: N/A Patient/Surrogate Stated/Verified: Patient name, Date of , Relevant allergies and Intended procedure TIME OUT Intended patient and procedure match the source document(s). Consent documented and matches the intended procedure. Correct side/site marked and visible. Medications required for procedure verified. 02/14/2024 10:04 AM The procedure site was prepped in the usual sterile fashion. Site: L knee joint Medications: 40 mg triamcinolone acetonide 40 mg/mL Anesthetics: 3 mL lidocaine 20 mg/mL (2 %) Outcome: Tolerated well, no immediate complications Post-injection instructions were reviewed with the patient and the patient voiced understanding of these instructions. SIGN OUT Post-procedure follow-up management communicated and Plan of Care Visit completed when applicable [facility] CNOVon 12-20-2023 CNOV Office Visit (FMUPCE ) MICHELLE QURESHI ([id number]) 1945 M Date Time Provider Department 12/20/23 1:00 PM CRISTINA ARROYO FMUPDIPTI During your visit today, we recorded the following information about you: Pulse Respiration Blood pressure Weight 55/minute 18/minute 120/79 79.9 kg Height 1.753 m Cristina Arroyo MD 12/20/2023 4:19 PM Signed Cristina Arroyo MD [address] [place] [address] Dept: [phone] Dept Visit Date: December 20, 2023 Name: Michelle Qureshi Date of : 1945 MRN/E #: [id number] Subjective Chief Complaint: Establish Care (Used to see Dr Nguyen.) Subjective Michelle Qureshi is a 78 year old male here for annual preventative patient visit and also has the following concern(s): - Patient believes his current PCP is retiring, so is looking for a new PCP. However patient states he may still continue to see his old PCP? 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 Full code status - Patient designated code status: full - Patient designated surrogate decision maker: , lilibeth ([phone]) - Patient had decision-making capacity at the time of this visit - Individuals present: myself, patient - Reviewed 12/20/2023 PAST MEDICAL HISTORY No date: Hypertension PAST SURGICAL HISTORY No date: PAST SURGICAL HISTORY OF; Right Comment: ear 2001: PRQ CARDIAC STENT W/ANGIO 1 VSL Comment: x 3 FAMILY HISTORY Problem Relation Age of Onset Heart Attack Father Dementia Sister Social History Tobacco Use Smoking status: Never Smokeless tobacco: Never Vaping Use Vaping status: Never Used Substance Use Topics Alcohol use: Yes Comment: 1 beer daily Drug use: Never reports being sexually active and has had partner(s) who are female. 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 losartan-hydroCHLOROth iazide (HYZAAR) 100-25 mg per tablet Take 1 tablet by mouth once daily. metoprolol succinate ER (TOPROL XL) 25 mg 24 hr tablet Take 25 mg by mouth twice daily. predniSONE (DELTASONE) 10 mg tablet Take 5 mg by mouth once daily. aspirin, enteric coated (ASPIRIN, ENTERIC COATED) 81 mg EC tablet Take 81 mg by mouth once daily. Glucosamine Sulfate (GLUCOSAMINE) 500 mg tab Take 1 tablet by mouth once daily. No current facility-administered medications for this visit. Objective Objective 12/20/23 1253 BP: 120/79 BP Site: Left Arm BP Position: Sitting BP Cuff Size: Regular Adult Pulse: (!) 55 Resp: 18 SpO2: 95% Weight: 79.9 kg (176 lb 2.4 oz) Height: 175.3 cm (5' 9) Body mass index is 26.01 kg/m?. Last 3 Encounter BP Readings: Date: BP: 12/20/2023 120/79 11/10/2023 129/64 07/05/2023 104/56 Last 3 Encounter Wt Readings: Date: Wt: 12/20/2023 79.9 kg (176 lb 2.4 oz) 11/10/2023 83.5 kg (184 lb) 07/05/2023 83.5 kg (184 lb) Physical Exam Vitals and nursing note reviewed. Constitutional: General: He is not in acute distress. HENT: Head: Normocephalic and atraumatic. Eyes: Conjunctiva/sclera: Conjunctivae normal. Cardiovascular: Rate and Rhythm: Normal rate and regular rhythm. Heart sounds: No murmur heard. No friction rub. No gallop. Pulmonary: Effort: Pulmonary effort is normal. No respiratory distress. Breath sounds: Normal breath sounds. No stridor. No wheezing, rhonchi or rales. Abdominal: General: There is no distension. Palpations: Abdomen is soft. There is no mass. Tenderness: There is no abdominal tenderness. Skin: General: Skin is warm and dry. Coloration: Skin is not jaundiced. Neurological: General: No focal deficit present. Mental Status: He is alert. Assessment / Plan Michelle was seen today for establish care. Diagnoses and all orders for this visit: Encounter to establish care - I have reviewed the problem list with the patient and updated as necessary. - I have reviewed the medical, surgical, and family histories with the patient and updated as necessary. - I have reviewed the substance use, sexual activity, socioeconomic, and social documentation historie (more content not included)... [facility] 11-10-2023 [facility] Office Visit (ORUPDO ) KIERAMICHELLE Pierre ([id number]) 1945 M Date Time Provider Department 11/10/23 8:15 AM TEATER, HTI L ORUPDO During your visit today, we recorded the following information about you: Pulse Blood pressure Weight Height 61/minute 129/64 83.5 kg 1.753 m Thi Gonsalez MD 11/10/2023 8:54 AM Signed CC: Left knee pain. HPI: Patient returns for follow up of his left knee. He describes intermittent discomfort that is increased with activity. He denies any new injury. Sweetie Fonseca scribe, transcribing for Thi Gonsalez MD Current Outpatient Medications Medication Sig losartan-hydroCHLOROth iazide (HYZAAR) 100-25 mg per tablet metoprolol succinate ER (TOPROL XL) 25 mg 24 hr tablet Take 25 mg by mouth twice daily. predniSONE (DELTASONE) 10 mg tablet aspirin, enteric coated (ASPIRIN, ENTERIC COATED) 81 mg EC tablet Take 81 mg by mouth once daily. Glucosamine Sulfate (GLUCOSAMINE) 500 mg tab Take 1 tablet by mouth once daily. atorvastatin (LIPITOR) 40 mg tablet No current facility-administered medications for this visit. ALLERGIES No Known Allergies PAST MEDICAL HISTORY Diagnosis Date Essential hypertension High cholesterol PAST SURGICAL HISTORY Procedure Laterality Date PAST SURGICAL HISTORY OF Right ear PRQ CARDIAC STENT W/ANGIO 1 VSL 2000 x 3 FAMILY HISTORY Problem Relation Age of Onset Heart Attack Father Dementia Sister Review of Systems Social History Tobacco Use Smoking status: Never Smokeless tobacco: Never Vaping Use Vaping Use: Never used Substance Use Topics Alcohol use: Yes Drug use: Never Ht 5' 9 (1.75m) Exam: Const: Appears healthy. No signs of distress. Alert. Patient is cooperative. CV: Good capillary refill. Knees: Exam of the left knee shows no joint effusion. No warmth nor erythema. There is medial joint line tenderness. Motion is 0 to 125 degrees with good strength. No posterior calf pain. Skin: Skin warm with good capillary refill. No visible rash or suspicious lesions. Neuro: Sensation intact to light touch. Dx Studies: No new studies today. Impression: Left knee osteoarthritis. Plan: Treatment options have been discussed including therapy, steroid injection, and possibly surgery. Patient wishes to proceed with a steroid injection. Noting risks and potential benefits, and following Betadine prep, 40mg. of Kenalog and 2% Lidocaine were carefully injected anteromedially into the left knee with good tolerance. Precautions have been given. The office is to be notified immediately with any adverse reactions or concerns. Return as needed. LARGE JOINT INJECTION/ARTHROCENTES IS: L knee joint Informed Consent Consent Obtained: Verbal Meredith Protocol A moment to CARE was completed. SIGN IN Personnel directly involved with the procedure wore the appropriate PPE. Special Equipment: N/A Patient/Surrogate Stated/Verified: Patient name, Date of , Relevant allergies and Intended procedure TIME OUT Intended patient and procedure match the source document(s). Consent documented and matches the intended procedure. Correct side/site marked and visible. Medications required for procedure verified. 11/10/2023 8:10 AM The procedure site was prepped in the usual sterile fashion. Site: L knee joint Medications: 40 mg triamcinolone acetonide 40 mg/mL Anesthetics: 3 mL lidocaine 20 mg/mL (2 %) Outcome: Tolerated well, no immediate complications Post-injection instructions were reviewed with the patient and the patient voiced understanding of these instructions. SIGN OUT Post-procedure follow-up management communicated and Plan of Care Visit completed when applicable The information in this document was created with the assistance of lou Rowe. I, THI GONSALEZ M.D. , have reviewed and approved this document for accuracy. Thi Gonsalez M.D. TLT/ Allergies As of Date: 11/10/2023 (No Known Allergies) Date Reviewed: 11/10/2023 Reviewed by: Mami Friend MA - Fully Assessed Reason for Visit: Established Patient [175] Primary Visit Diagnosis:Primary osteoarthritis of left knee [M17.12] Order(s):LARGE JOINT INJECTION/ARTHROCENTES IS: L knee joint [BVT639] Order #: [id number] [] lidocaine 20 mg/mL (2 %) 3 mL injection (XYLOCAINE)Disp: Rfl: [] triamcinolone acetonide 40 mg injection (KeNALog 40)Disp: Rfl: Prescriptions as of 11/10/2023 - losartan-hydroCHLOROth iazide (HYZAAR) 100-25 mg per tablet - metoprolol succinate ER (TOPROL XL) 25 mg 24 hr tablet Take 25 mg by mouth twice daily. - predniSONE (DELTASONE) 10 mg tablet - aspirin, enteric coated (ASPIRIN, ENTERIC COATED) 81 mg EC tablet Take 81 mg by mouth once daily. - Glucosamine Sulfate (GLUCOSAMINE) 500 mg tab Take 1 tablet by mouth once daily. - atorvastatin (LIPITOR) 40 (more content not included)... [facility] LARGE JOINT INJECTION/ARTHRO CENTESIS: L knee jointon 11-10-2023 Thi Gonsalez MD 11/10/2023 8:54 AM LARGE JOINT INJECTION/ARTHROCENTES IS: L knee joint Informed Consent Consent Obtained: Verbal Meredith Protocol A moment to CARE was completed. SIGN IN Personnel directly involved with the procedure wore the appropriate PPE. Special Equipment: N/A Patient/Surrogate Stated/Verified: Patient name, Date of , Relevant allergies and Intended procedure TIME OUT Intended patient and procedure match the source document(s). Consent documented and matches the intended procedure. Correct side/site marked and visible. Medications required for procedure verified. 11/10/2023 8:10 AM The procedure site was prepped in the usual sterile fashion. Site: L knee joint Medications: 40 mg triamcinolone acetonide 40 mg/mL Anesthetics: 3 mL lidocaine 20 mg/mL (2 %) Outcome: Tolerated well, no immediate complications Post-injection instructions were reviewed with the patient and the patient voiced understanding of these instructions. SIGN OUT Post-procedure follow-up management communicated and Plan of Care Visit completed when applicable [facility] LYME EARLY (SIGNS/SYMP <=30 DAYS) [CCL]on 10-20-2023 RESULT CRITICAL? NO Normal [facility] Comment on above: Performed By: #### 2 [id number] #### [place] [id number] Lyme IgG IgM Ab Negative Normal Negative [facility] Comment on above: Result Comment: Rece nt infection with B. burgdorferi sensu lato cannot be excluded if the specimen collected within four weeks after the onset of signs and symptoms or within six weeks after a known tick exposure. Clinical and epidemiological correlation is required. [facility] [address] [place] [address] Pako Martinez III, M.D. [id number] Performed By: #### 2 [id number] #### [place] [id number] B. burgdorferi IgG and IgM p reynaldo (S)on 10-18-2023 B. burgdorferi IgG+IgM Qn (S) Negative Normal Negative [facility] Comment on above: Order Comment: Speci men Type: BLOOD SPECIMEN Ordering Facility: [facility] Address: [address] , [place] [address] Result Comment: Rece nt infection with B. burgdorferi sensu lato cannot be excluded if the specimen collected within four weeks after the onset of signs and symptoms or within six weeks after a known tick exposure. Clinical and epidemiological correlation is required. Performed By: #### 3 4942-3 #### [facility] CLIA [id number] [address] [place] [address] [facility] CNOVon 11-14-2022 CNOV Office Visit (UROUPD ) MICHELLE QURESHI ([id number]) 1945 M Date Time Provider Department 11/14/22 7:30 AM JENNIFER VARGAS During your visit today, we recorded the following information about you: Pulse Blood pressure Weight Height 59/minute 168/85 82.1 kg 1.753 m Jennifer Vargas MD 11/14/2022 8:59 AM Signed November 14, 2022 Reason for Appointment Patient presents with: Consult: Pt states he has an elevated PSA. Denies urinary pain or difficulty with urination. YOBANI Michelle Mckeonjose g is a 76 year old male who presents today for an appointment for further evaluation of an elevated PSA. The patient recently underwent a serum PSA determination and it was elevated at 5.4 ng/mL. The patient said that in general he urinates without difficulty. He denies any gross hematuria or urinary tract infections. He also said that he is interested in having a circumcision because he feels like his penis retracts and at times it can be difficult with postvoid dribbling. Current Medications losartan-hydroCHLOROth iazide (HYZAAR) 100-25 mg per tablet metoprolol succinate ER (TOPROL XL) 25 mg 24 hr tablet Take 25 mg by mouth twice daily. aspirin, enteric coated (ASPIRIN, ENTERIC COATED) 81 mg EC tablet Take 81 mg by mouth once daily. Glucosamine Sulfate (GLUCOSAMINE) 500 mg tab Take 1 tablet by mouth once daily. atorvastatin (LIPITOR) 40 mg tablet predniSONE (DELTASONE) 10 mg tablet PAST MEDICAL HISTORY Diagnosis Date Essential hypertension High cholesterol PAST SURGICAL HISTORY Procedure Laterality Date PAST SURGICAL HISTORY OF Right ear PRQ CARDIAC STENT W/ANGIO 1 VSL 2000 x 3 FAMILY HISTORY Problem Relation Age of Onset Heart Attack Father Dementia Sister Social History Tobacco Use Smoking status: Never Smokeless tobacco: Never Vaping Use Vaping Use: Never used Substance Use Topics Alcohol use: Yes Drug use: Never ALLERGIES No Known Allergies Objective BP 168/85 Pulse 59 Ht 5' 9 (1.75m) Wt 181 lb (82.1kg) BMI 26.72 kg/(m2). Physical Exam Constitutional: Appearance: Normal appearance. Pulmonary: Effort: Pulmonary effort is normal. Genitourinary: Comments: The patient is uncircumcised. There is fairly minimal phimosis. The foreskin is able to be retracted with gentle pressure. The patient has a fairly prominent escutcheon. The testicles are bilaterally descended and nontender. The prostate feels fairly small, there is no discrete nodularity or tenderness. Neurological: Mental Status: He is alert and oriented to person, place, and time. ASSESSMENT/PLAN: 1. Elevated PSA - ICD9: 790.93, ICD10: R97.20 (primary diagnosis) The patient has an elevated PSA. I explained to him that this can be a sign of prostate cancer and I recommended that we get an up-to-date PSA on him. If it is truly elevated then we will arrange for an MRI. The patient expressed understanding. He will call for the results and we will go from there. - UA DIP, URINE (POC) - PSA/PROSTSPECAG DIAG 2. Phimosis - ICD9: 605, ICD10: N47.1 The patient does have fairly mild phimosis. He is interested in a circumcision. I explained to him that he could undergo a circumcision however this will not address the escutcheon that he has and he likely will still have some issues with the penis retracting. The patient expressed understanding. We will work-up his PSA first and then most likely proceed with a circumcision at some point. Jennifer Vargas MD Follow Up Return for PSA now - call for results. Allergies As of Date: 11/14/2022 (No Known Allergies) Date Reviewed: 11/14/2022 Reviewed by: Dorothy Tsang - Fully Assessed Reason for Visit: Consult [173] Cmt: Pt states he has an elevated PSA. Denies urinary pain or difficulty with urination. Primary Visit Diagnosis:Elevated PSA [R97.20] Other Visit Diagnosis:Phimosis [N47.1] Order(s):UA DIP, URINE (POC) [6107621] Order #: [id number] PSA/PROSTSPECAG DIAG [SQPSA] Order #: [id number] FUTURE UA DIP W/MICRO B/O [2862005] Order #: [id number] Prescriptions as of 11/14/2022 - losartan-hydroCHLOROth iazide (HYZAAR) 100-25 mg per tablet - metoprolol succinate ER (TOPROL XL) 25 mg 24 hr tablet Take 25 mg by mouth twice daily. - predniSONE (DELTASONE) 10 mg tablet - aspirin, enteric coated (ASPIRIN, ENTERIC COATED) 81 mg EC tablet Take 81 mg by mouth once daily. - Glucosamine Sulfate (GLUCOSAMINE) 500 mg tab Take 1 tablet by mouth once daily. - atorvastatin (LIPITOR) 40 mg tablet Problem List As Of Date 11/14/2022 Noted Resolved Elevated PSA [R97.20] 11/14/2022 Phimosis [N47.1] 11/14/2022 Medications Discontinued During This Encounter Prescriptions - losartan (COZAAR) 100 mg tablet (Discontinued) Reported on 11/14/2022 - metoprolol tartrate, short acting, (LOPRESSOR) 25 mg tablet (Discontinued) Reported on (more content not included)... Normal [facility] Son 11-14-2022 MARVIN Telephone (UROUPD) MICHELLE QURESHI ([id number]) 1945 M Date Time Provider Department 11/14/22 JENNIFER VARGAS UROUPLindy During your visit today, we recorded the following information about you: Jennifer Vargas MD 11/14/2022 4:21 PM Signed Please call patient and let him know his PSA was down to 4.0 ng/mL which is acceptable. I would like to check it again in 6 months. I entered the order. Heather Chaves 11/14/2022 4:32 PM Signed Spoke to pt's and appointment was scheduled for 6 months. Order mailed per request. Pt's voiced understanding. Allergies As of Date: 11/14/2022 (No Known Allergies) Date Reviewed: 11/14/2022 Reviewed by: Dorothy Tsang - Fully Assessed Reason for Visit: Results [95] Primary Visit Diagnosis:Elevated PSA [R97.20] Order(s):PSA/PROSTSPEC AG DIAG [SQPSA] Order #: [id number] FUTURE Prescriptions as of 11/14/2022 - losartan-hydroCHLOROth iazide (HYZAAR) 100-25 mg per tablet - metoprolol succinate ER (TOPROL XL) 25 mg 24 hr tablet Take 25 mg by mouth twice daily. - predniSONE (DELTASONE) 10 mg tablet - aspirin, enteric coated (ASPIRIN, ENTERIC COATED) 81 mg EC tablet Take 81 mg by mouth once daily. - Glucosamine Sulfate (GLUCOSAMINE) 500 mg tab Take 1 tablet by mouth once daily. - atorvastatin (LIPITOR) 40 mg tablet Problem List As Of Date 11/14/2022 Noted Resolved Elevated PSA [R97.20] 11/14/2022 Phimosis [N47.1] 11/14/2022 Encounter Status:Closed by JENNIFER VARGAS on 11/14/22 Normal [facility] PSA/PROSTSPECAG DIAGon 11-14 Prostate specific Ag [Mass/Vol] 4.0 ng/mL High 0.0 - 2.6 ng/mL [facility] UA DIP W/MICRO B/Oon 023 Bacteria LM.HPF (Urine sed) [#/Area] 0 /[HPF] [facility] Bilirubin, [facility]rine [facility] Casts LM.HPF (Urine sed) [#/Area] [facility] Color/Appearance [facility] Glucose Ql (U) [facility] Hemoglobin/Blood,Ur [facility] Ketones Ql (U) [facility] Leukocyte morphology finding Nom (Bld) 0 HPF 0 - 5 HPF [facility] Leukocytes [facility] Nitrite Ql (U) [facility] Nucleated RBC Manual cnt (Unsp spec) [#] 0 HPF 0 - 3 HPF [facility] pH (U) [facility] Protein.monoclonal (U) [Mass/Vol] [facility] Quality Check [facility] Specific [place], Ur [facility] Urine sediment comments LM [place] (Urine sed) [facility] Urobilinogen, Urine [facility] KNEE INJURY (4+ VIEWS)on KNEE INJURY (4+ VIEWS) [place] [address] Name: MICHELLE QURESHI Phys: JORGE NGUYEN M.D. : [birth year] Age: 74 Sex: M Acct: [id number] Loc: RAD Exam Date: 07/14/20 Status: REG CLI Radiology No.: [id number] Unit Number: [id number] Exam # Type/Exam [id number] RAD / KNEE INJURY (4+ VIEWS) LT XR KNEE INJURY (4+ VIEWS) LEFT CLINICAL STATEMENT: Pain COMPARISON: None FINDINGS: No acute fracture or dislocation is identified. A small joint effusion is seen. There are severe degenerative changes within the medial joint compartment and at the patellofemoral joint. Mild degenerative changes seen within the lateral joint compartment. There is no radiopaque foreign body. IMPRESSION: Severe degenerative changes with small joint effusion. Electronically signed by: Benito Merrill MD 07/15/2020 9:06 AM CDT < > Reported By: BENITO MERRILL M.D. Signed In PowerScribe By: BENITO MERRILL M.D. << Signature on File>> Reported By: BENITO MERRILL M.D. Signed By: BENITO MERRILL M.D. Tests performed at: [place] [address] [facility]Con 07-10-2020 BASO# 0.00 x10(3) Normal 0.00-0.10 [facility] Comment on above: Performed By: #### L 200.0010 #### [facility] [address] [place] [address] Basophils/100 WBC (Bld) 0.7 % Normal 0.0-1.0 [facility] Comment on above: Performed By: #### L 200.0010 #### [facility] [address] [place] [address]59[address] EOS# 0.10 x10(3) Normal 0.00-0.54 [facility] Comment on above: Performed By: #### L 200.0010 #### [facility] [address] [place] [address]42[address] Eosinophils/100 WBC (Bld) 2.0 % Normal 0.5-4.9 [facility] Comment on above: Performed By: #### L 200.0010 #### [facility] [address] [place] [address] 29464 Erythrocyte distribution width (RBC) [Ratio] 13.6 % Normal 12.7-15.3 [facility] Comment on above: Performed By: #### L 200.0010 #### [facility] [address] [place] [address]36 Hematocrit (Bld) [Volume fraction] 43.9 % Normal 42.0-51.0 [facility] Comment on above: Performed By: #### L 200.0010 #### [facility] [address] [place] [address] Hemoglobin (Bld) [Mass/Vol] 14.8 g/dL Normal 14.0-17.2 [facility] Comment on above: Performed By: #### L 200.0010 #### [facility] [address] [place] [address] LYMPH# 2.00 x10(3) Normal 1.00-3.50 [facility] Comment on above: Performed By: #### L 200.0010 #### [facility] - LABORATORY [address] [place] [address] 45303 Lymphocytes/100 WBC (Bld) 31.6 % Normal 16.0-48.0 [facility] Comment on above: Performed By: #### L 200.0010 #### [facility] [address] [place] [address] 89841 MCH (RBC) [Entitic mass] 30.8 pg Normal 28.8-32.2 [facility] Comment on above: Performed By: #### L 200.0010 #### [facility] [address] [place] [address] 01793 MCHC (RBC) [Mass/Vol] 33.6 g/dL Normal 33.0-36.0 [facility] Comment on above: Performed By: #### L 200.0010 #### ML [facility] [address] [place] [address] 60031 MCV (RBC) [Entitic vol] 91.7 fL Normal 80.0-94.0 [facility] Comment on above: Performed By: #### L 200.0010 #### [facility] [address] [place] [address] 11465 MONO# 0.50 x10(3) Normal 0.30-0.80 [facility] Comment on above: Performed By: #### L 200.0010 #### [facility] [address] [place] [address] 32350 Monocytes/100 WBC (Bld) 7.3 % Normal 4.3-11.2 [facility] Comment on above: Performed By: #### L 200.0010 #### [facility] [address] [place] [address] 74029 NEUT# 3.80 x10(3) Normal 1.40-6.50 [facility] Comment on above: Performed By: #### L 200.0010 #### [facility] [address] [place] [address] 41547 Neutrophils/100 WBC (Bld) 58.4 % Normal 45.0-73.0 [facility] Comment on above: Performed By: #### L 200.0010 #### [facility] [address] [place] [address] 31245 Platelet mean volume (Bld) [Entitic vol] 8.5 fL Normal 7.4-9.2 [facility] Comment on above: Performed By: #### L 200.0010 #### - LABORATORY [address] [place] [address] 23846 PLT 244 X10(3) Normal 150-450 [facility] Comment on above: Performed By: #### L 200.0010 #### [facility] [address] [place] [address] 66319 RBC 4.79 x10(6) Low 4.80-5.50 [facility] Comment on above: Performed By: #### L 200.0010 #### [facility] [address] [place] [address] 98780 WBC 6.4 x10(3) Normal 4.5-10.0 [facility] Comment on above: Performed By: #### L 200.0010 #### [facility] [address] [place] [address] 81770 CMPon 07-10-2020 A:G RATIO 2.64 High 1.1-2.5 [facility] Comment on above: Performed By: #### L 100.0040, L304.0155, L100.0005, L304.0140 #### - LABORATORY [address] [place] [address] 92320 Albumin [Mass/Vol] 4.5 g/dL Normal 3.5-5.2 [facility] Comment on above: Performed By: #### L 100.0040, L304.0155, L100.0005, L304.0140 #### [facility] [address] [place] [address] 88732 ALK. PHOS 75 U/L Normal 40-130 [facility] Comment on above: Performed By: #### L 100.0040, L304.0155, L100.0005, L304.0140 #### [facility] [address] [place] [address] 19725 ALT [Catalytic activity/Vol] 23 U/L Normal 5-41 [facility] Comment on above: Performed By: #### L 100.0040, L304.0155, L100.0005, L304.0140 #### [facility] - LABORATORY [address] [place] [address] 13310 Anion gap [Moles/Vol] 14.9 mmol/L Low 15- [facility] Comment on above: Performed By: #### L 100.0040, L304.0155, L100.0005, L304.0140 #### [facility] - [facility]ATORY [address] [place] [address] 47769 AST [Catalytic activity/Vol] 21 U/L Normal 5-40 [facility] Comment on above: Performed By: #### L 100.0040, L304.0155, L100.0005, L304.0140 #### [facility] - [facility]ATORY [address] [place] [address] 89077 Bilirubin [Mass/Vol] 0.6 mg/dL Normal 0.2-1.2 [facility] Comment on above: Performed By: #### L 100.0040, L304.0155, L100.0005, L304.0140 #### [facility] - [facility]ATORY [address] [place] [address] 07918 Calcium [Mass/Vol] 9.2 mg/dL Normal 8.8-10.2 [facility] Comment on above: Performed By: #### L 100.0040, L304.0155, L100.0005, L304.0140 #### - LABORATORY [address] [place] [address] 65669 Chloride [Moles/Vol] 104 mmol/L Normal 98-107 [facility] Comment on above: Performed By: #### L 100.0040, L304.0155, L100.0005, L304.0140 #### - LABORATORY [address] [place] [address] 21266 CO2 [Moles/Vol] 28 mmol/L Normal 22-29 [facility] Comment on above: Performed By: #### L 100.0040, L304.0155, L100.0005, L304.0140 #### [facility] - LABORATORY [address] [place] [address] 11183 Creatinine [Mass/Vol] 0.77 mg/dL Normal 0.70-1.20 [facility] Comment on above: Performed By: #### L 100.0040, L304.0155, L100.0005, L304.0140 #### [facility] [address] [place] [address] 98545 eGFR if AFR BINH > 60 ml/min/1.73m2 Normal Pending sale to [facility] Comment on above: Result Comment: eGFR >= 60 Indicates normal kidney function. * eGFR IS AN ESTIMATE * (AFR BINH = ) (non-AFR AM = NON-) MDRD calculation used in the eGFR should not be used to dose medications. For further limitations of the eGFR please refer to the Physician Website or the National Kidney Disease Education Program website (www.nkdep.nih.gov). Performed By: #### L 100.0040, L304.0155, L100.0005, L304.0140 #### [facility] [address] [place] [address] 20807 eGFR nonAFR Binh > 60 ml/Min/1.73m2 Normal Pending sale to [facility] Comment on above: Performed By: #### L 100.0040, L304.0155, L100.0005, L304.0140 #### [facility] [address] [place] [address] 74781 Globulin (S) [Mass/Vol] 1.7 g/dL Normal 1.5-4.5 [facility] Comment on above: Performed By: #### L 100.0040, L304.0155, L100.0005, L304.0140 #### [facility] [address] [place] [address] 93664 Glucose [Mass/Vol] 119 mg/dL High 82-115 [facility] Comment on above: Performed By: #### L 100.0040, L304.0155, L100.0005, L304.0140 #### [facility] - [facility]ATORY [address] [place] [address] 35647 Potassium [Moles/Vol] 4.9 mmol/L Normal 3.5-5.0 [facility] Comment on above: Performed By: #### L 100.0040, L304.0155, L100.0005, L304.0140 #### [facility] - [facility]ATORY [address] [place] [address] 76313 Protein [Mass/Vol] 6.2 g/dL Low 6.4-8.3 [facility] Comment on above: Performed By: #### L 100.0040, L304.0155, L100.0005, L304.0140 #### [facility] - [facility]AT[facility] [address] [place] [address] 24767 Sodium [Moles/Vol] 142 mmol/L Normal 135-145 [facility] Comment on above: Performed By: #### L 100.0040, L304.0155, L100.0005, L304.0140 #### [facility] - [facility] [address] [place] [address] 60076 Urea nitrogen [Mass/Vol] 13 mg/dL Normal 8-23 [facility] Comment on above: Performed By: #### L 100.0040, L304.0155, L100.0005, L304.0140 #### [facility] - LAB[facility]ATORY [address] [place] [address] 27340 LIPID PANELon 07-10-2020 Cholesterol [Mass/Vol] 148 mg/dL Normal 130-200 [facility] Comment on above: Performed By: #### L 100.0040, L304.0155, L100.0005, L304.0140 #### - LABORATORY [address] [place] [address] 40647 Cholesterol in HDL [Mass/Vol] 44 mg/dL Normal [facility] Comment on above: Result Comment: Vanessa onal Cholesterol Education Program (NCEP) guidelines: <40 mg/dL: Low HDL-Cholesterol(major risk factor for CHD) > or = 60 mg/dL: High HDL-Cholesterol(negative risk factor for CHD) HDL-cholesterol is affected by a number of factors, e.g., smoking, exercise, hormones, sex, and age. 4th Generation Test; Results may be approximately 7% lower than previous values. Performed By: #### L 100.0040, L304.0155, L100.0005, L304.0140 #### [facility] - [facility]ATORY [address] [place] [address] 28153 Cholesterol in LDL [Mass/Vol] 78 mg/dL Normal [facility] Comment on above: Result Comment: LDL: OPTIMAL FOR PEOPLE AT VERY HIGH RISK <70 OPTIMAL <100 NEAR OPTIMAL 100-129 BORDERLINE HIGH 130-159 HIGH 160-189 VERY HIGH >=190 Source: 2009 NCEP ATP III, ADA Guidelines Reviewed: July, Performed By: #### L 100.0040, L304.0155, L100.0005, L304.0140 #### [facility] - [facility] [address] [place] [address] 17160 Cholesterol in VLDL [Mass/Vol] 26 mg/dL Normal 6-40 [facility] Comment on above: Performed By: #### L 100.0040, L304.0155, L100.0005, L304.0140 #### [facility] - [facility]ATORY [address] [place] [address] 21584 LDL/HDL RATIO 1.8 Normal [facility] Comment on above: Performed By: #### L 100.0040, L304.0155, L100.0005, L304.0140 #### [facility] - [facility]ATORY [address] [place] [address] 58685 Triglyceride [Mass/Vol] 132 mg/dL Normal [facility] Comment on above: Result Comment: TRIG : DESIRABLE: <150 mg/dL Performed By: #### L 100.0040, L304.0155, L100.0005, L304.0140 #### [facility] - [facility]ATORY [address] [place] [address] 94175 TSHon 07-10-2020 TSH 2.54 uIU/mL Normal 0.27-4.20 [facility] Comment on above: Performed By: #### L 100.0040, L304.0155, L100.0005, L304.0140 #### [facility] [address] [place] [address] [facility] 07-09-2020 Cholesterol [Mass/Vol] 148 mg/dL 130 - 200 mg/dL [facility] Cholesterol in HDL [Mass/Vol] 44 mg/[facility] Cholesterol in LDL [Mass/Vol] 78 mg/dL [facility] Triglyceride [Mass/Vol] 132 mg/dL [facility] Hematologyon 07-09-2020 Basophils/100 WBC (Bld) 0.7 % 0.0 - 1.0 % [facility] Eosinophils/100 WBC (Bld) 2.0 % 0.5 - 4.9 % [facility] Hematocrit (Bld) [Volume fraction] 43.9 % 42.0 - 51.0 % [facility] Hemoglobin (Bld) [Mass/Vol] 14.8 g/dL 14.0 - 17.2 g/dL [facility] Lymphocytes (Bld) [#/Vol] 2.00 x10(3) 1.00 - 3.50 x10(3) [facility] Lymphocytes/100 WBC (Bld) 31.6 % 16.0 - 48.0 % [facility] MCH (RBC) [Entitic mass] 30.8 pg 28.8 - 32.2 pg [facility] MCV (RBC) [Entitic vol] 91.7 fL 80.0 - 94.0 fl [facility] Monocytes/100 WBC (Bld) 7.3 % 4.3 - 11.2 % [facility] Neutrophils/100 WBC (Bld) 58.4 % 45.0 - 73.0 % [facility] Platelets (Bld) [#/Vol] 244 X10(3) 150 - 450 X10(3) [facility] RBC (Bld) [#/Vol] 4.79 x10(6) Low 4.80 - 5.5 0 x10(6) [facility] WBC (Bld) [#/Vol] 6.4 x10(3) 4.5 - 10.0 x10(3) [facility] Metabolic Panelon 07-09-2020 Albumin [Mass/Vol] 4.5 g/dL 3.5 - 5.2 g/dL [facility] ALP [Catalytic activity/Vol] 75 U/L 40 - 130 U/L [facility] ALT [Catalytic activity/Vol] 23 U/L 5 - 41 U/L [facility] Anion gap [Moles/Vol] 14.9 mmol/L Low 15 - 22 mmol/L [facility] AST [Catalytic activity/Vol] 21 U/L 5 - 40 U/L [facility] Bilirubin [Mass/Vol] 0.6 mg/dL 0.2 - 1 .2 mg/dL [facility] Calcium [Mass/Vol] 9.2 mg/dL 8.8 - 10. 2 mg/dL [facility] Chloride [Moles/Vol] 104 mmol/L 98 - 10 7 mmol/L [facility] CO2 [Moles/Vol] 28 mmol/L 22 - 29 mmol/L [facility] Creatinine [Mass/Vol] 0.77 mg/dL 0.70 - 1.20 mg/dL [facility] GFR/1.73 sq M predicted among blacks MDRD (S/P/Bld) [Vol rate/Area] > 60 ml/min/1.73m2 [facility] GFR/1.73 sq M predicted among non-blacks MDRD (S/P/Bld) [Vol rate/Area] > 60 ml/Min/1.73m2 [facility] Glucose [Mass/Vol] 119 mg/dL High 82 - 115 mg/dL [facility] Potassium [Moles/Vol] 4.9 mmol/L 3.5 - 5.0 mmol/L [facility] Protein [Mass/Vol] 6.2 g/dL Low 6.4 - 8.3 g/dL [facility] Sodium [Moles/Vol] 142 mmol/L 135 - 145 mmol/L [facility] Urea nitrogen [Mass/Vol] 13 mg/dL 8 - 23 mg/dL [facility] Otheron 07-09-2020 Albumin/Globulin [Mass ratio] 2.64 {ratio} High 1.1 - 2.5 [facility] Globulin (S) [Mass/Vol] 1.7 g/dL 1.5 - 4.5 g/dL [facility] LDL:HDL Ratio 1.8 [facility] VLDL Cholesterol 26 mg/dL 6 - 40 mg/dL [facility] BASO ABS 0.00 x10(3) 0.00 - 0.10 x10(3) [facility] EOS ABS 0.10 x10(3) 0.00 - 0.54 x10(3) [facility] Erythrocyte distribution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 mouth daily, Aspirin 81 Low Dose 81 mg 1 by mouth every day, Vitamin D-3 25 mcg (1000 Ut) 1 a day, Multi Vitamin take one(1) tablet daily., Aleve 220 mg as needed, Prevagen 10 mg 1po qday, Losartan Potassium 25 mg 1 by mouth every day PRE-OP EXAM: General appearance:NORMAL Other: Eyes: Conjunctivae and lids: NORMAL Pupils: ERR Ears, Nose, Mouth, and Throat: NORMAL Other: Inspection of lips, teeth and gums: NORMAL Other: Neck: Examination of neck: no masses noted. Respiratory: Assessment of respiratory effort: NORMAL Other: Auscultation of lungs: clear to auscultation no wheezes, rhonchi or rales. Cardiovascular: Auscultation of heart: regular rate and rhythm, no murmurs, gallops or rubs. Exam of carotid arteries: NORMAL Other: Gastrointestinal: Exam of abdomen: soft, nontender, nondistended bowel sounds prese (more content not included)... [facility] 09-06-2024 Note HNO ID: [id number] Author: ANDREE PROCTOR PA-C Service: ? Author Type: Physician Cyber Systems Administrator Type: Progress Notes Filed: 09/06/2024 10:24 Note Text: Reviewed patient's pre-op testing, all lab work is stable. He is medically optimized and cleared for robotic assisted left total knee arthroplasty. [facility] 09-02-2024 Note HNO ID: [id number] Author: ANDREE PROCTOR PA-C Service: ? Author Type: Physician Cyber Systems Administrator Type: Progress Notes Filed: 09/02/2024 09:52 Note Text: CHIEF COMPLAINT: No chief complaint on file. SUBJECTIVE: Michelle Qureshi is a 78 year old male who presents for Pre-operative medical optimization. Proposed surgery: Robotic assisted left total knee arthroplasty Date of surgery: 09/23/24 Facility where surgery is to take place: Surgeon: Hortensia Reyes M.D. History of previous surgery: Yes, ulnar nerve and carpal tunnel release. Cardiac stent with angioplasty in 2000. History of complications with previous surgery or anesthesia: None History of cardiovascular disease: Hypertension, CAD History of pulmonary disease: None History of blood clots or bleeding disorder: None Pre-op testing completed: EKG completed 08/29/2024 showed sinus bradycardia with a ventricular rate of 52 BPM, otherwise normal EKG. Pre-operative lab work is to be completed 5 days prior to surgery. Pre-op appointment is scheduled with Yanira Johnson PA-C Functional Capacity: > 4 METs Concerns regarding upcoming surgery: None Current Outpatient Medications Medication Sig metoprolol tartrate, short acting, (LOPRESSOR) 25 mg tablet Take 25 mg by mouth two times a day. rosuvastatin (CRESTOR) 20 mg tablet Take 1 tablet by mouth every afternoon. prednisoLONE acetate (PRED FORTE) 1 % ophthalmic suspension as needed. losartan-hydroCHLOROthiazide (HYZAAR) 100-25 mg per tablet Take 1 tablet by mouth once daily. metoprolol succinate ER (TOPROL XL) 25 mg 24 hr tablet Take 25 mg by mouth twice daily. aspirin, enteric coated (ASPIRIN, ENTERIC COATED) 81 mg EC tablet Take 81 mg by mouth once daily. Glucosamine Sulfate (GLUCOSAMINE) 500 mg tab Take 1 tablet by mouth once daily. No current facility-administered medications for this visit. 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 FAMILY HISTORY Problem Relation Age of Onset Heart Attack Father Dementia Sister PAST SURGICAL HISTORY Procedure Laterality Date PAST SURGICAL HISTORY OF Right ear PRQ CARDIAC STENT W/ANGIO 1 VSL 2000 x 3 Social History Tobacco Use Smoking status: Never Smokeless tobacco: Never Vaping Use Vaping status: Never Used Substance Use Topics Alcohol use: Yes Comment: 1 beer daily Drug use: Never REVIEW OF SYSTEMS Review of Systems Constitutional: Negative for chills, fatigue and fever. HENT: Negative for congestion. Respiratory: Negative for cough, shortness of breath and wheezing. Cardiovascular: Negative for chest pain, palpitations and leg swelling. Gastrointestinal: Negative for abdominal pain, constipation, diarrhea and nausea. Musculoskeletal: Positive for arthralgias (left knee) and joint swelling (left knee). Negative for back pain, myalgias and neck pain. Skin: Negative for rash. Neurological: Negative for dizziness, weakness, numbness and headaches. Psychiatric/Behavioral: Negative for dysphoric mood. The patient is not nervous/anxious. OBJECTIVE BP 116/66 (BP Site: Left Arm, BP Position: Sitting, BP Cuff Size: Regular Adult) Pulse (!) 57 Ht 172.7 cm (5' 8) Wt 84.5 kg (186 lb 4.6 oz) SpO2 97% BMI 28.33 kg/m? Physical Exam Vitals and nursing note reviewed. Constitutional: Appearance: Normal appearance. He is not ill-appearing. HENT: Nose: Nose normal. Mouth/Throat: Mouth: Mucous membranes are moist. Pharynx: Oropharynx is clear. Eyes: Extraocular Movements: Extraocular movements intact. Conjunctiva/sclera: Conjunctivae normal. Pupils: Pupils are equal, round, and reactive to light. Cardiovascular: Rate and Rhythm: Normal rate and regular rhythm. Heart sounds: Normal heart sounds. Pulmonary: Effort: Pulmonary effort is normal. Breath sounds: Normal breath sounds. Abdominal: General: Bowel sounds are normal. Tenderness: There is no abdominal tenderness. Musculoskeletal: Cervical back: Normal range of motion. Right knee: Normal. Left knee: Swelling (diffuse, mild) and crepitus present. No deformity or erythema. Decreased range of motion (limted flexion and extension). No tenderness. Normal alignment, normal meniscus and normal patellar mobility. Neurological: General: No focal deficit present. Mental Status: He is alert and oriented to person, place, and time. Psychiatric: Mood and Affect: Mood normal. ASSESSMENT/PLAN: 1. Pre-op examination - ICD9: V72.84, ICD10: Z01.818 (primary diagnosis) - I reviewed and updated patient's past medical, surgical, family history, allergies, medications, and current problem list. - Reviewed preoperative testing, EKG showed sinus bradycardia with a ventricular rate of 52 BPM and was otherwise normal. Patient states he is scheduled for pre-operative lab work 4 days (more content not included)... [facility] 09-02-2024 History of Presen t illness Narrative CHIEF COMPLAINT: No chief complaint on file. SUBJECTIVE: Michelle Qureshi is a 78 year old male who presents for Pre-operative medical optimization. Proposed surgery: Robotic assisted left total knee arthroplasty Date of surgery: 09/23/24 Facility where surgery is to take place: Surgeon: Hortensia Reyes M.D. History of previous surgery: Yes, ulnar nerve and carpal tunnel release. Cardiac stent with angioplasty in 2000. History of complications with previous surgery or anesthesia: None History of cardiovascular disease: Hypertension, CAD History of pulmonary disease: None History of blood clots or bleeding disorder: None Pre-op testing completed: EKG completed 08/29/2024 showed sinus bradycardia with a ventricular rate of 52 BPM, otherwise normal EKG. Pre-operative lab work is to be completed 5 days prior to surgery. Pre-op appointment is scheduled with Yanira Johnson PA-C Functional Capacity: > 4 METs Concerns regarding upcoming surgery: None Current Outpatient Medications Medication Sig metoprolol tartrate, short acting, (LOPRESSOR) 25 mg tablet Take 25 mg by mouth two times a day. rosuvastatin (CRESTOR) 20 mg tablet Take 1 tablet by mouth every afternoon. prednisoLONE acetate (PRED FORTE) 1 % ophthalmic suspension as needed. losartan-hydroCHLOROthiazide (HYZAAR) 100-25 mg per tablet Take 1 tablet by mouth once daily. metoprolol succinate ER (TOPROL XL) 25 mg 24 hr tablet Take 25 mg by mouth twice daily. aspirin, enteric coated (ASPIRIN, ENTERIC COATED) 81 mg EC tablet Take 81 mg by mouth once daily. Glucosamine Sulfate (GLUCOSAMINE) 500 mg tab Take 1 tablet by mouth once daily. No current facility-administered medications for this visit. 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 FAMILY HISTORY Problem Relation Age of Onset Heart Attack Father Dementia Sister PAST SURGICAL HISTORY Procedure Laterality Date PAST SURGICAL HISTORY OF Right ear PRQ CARDIAC STENT W/ANGIO 1 VSL 2000 x 3 Social History Tobacco Use Smoking status: Never Smokeless tobacco: Never Vaping Use Vaping status: Never Used Substance Use Topics Alcohol use: Yes Comment: 1 beer daily Drug use: Never REVIEW OF SYSTEMS Review of Systems Constitutional: Negative for chills, fatigue and fever. HENT: Negative for congestion. Respiratory: Negative for cough, shortness of breath and wheezing. Cardiovascular: Negative for chest pain, palpitations and leg swelling. Gastrointestinal: Negative for abdominal pain, constipation, diarrhea and nausea. Musculoskeletal: Positive for arthralgias (left knee) and joint swelling (left knee). Negative for back pain, myalgias and neck pain. Skin: Negative for rash. Neurological: Negative for dizziness, weakness, numbness and headaches. Psychiatric/Behavioral: Negative for dysphoric mood. The patient is not nervous/anxious. OBJECTIVE BP 116/66 (BP Site: Left Arm, BP Position: Sitting, BP Cuff Size: Regular Adult) Pulse (!) 57 Ht 172.7 cm (5' 8) Wt 84.5 kg (186 lb 4.6 oz) SpO2 97% BMI 28.33 kg/m Physical Exam Vitals and nursing note reviewed. Constitutional: Appearance: Normal appearance. He is not ill-appearing. HENT: Nose: Nose normal. Mouth/Throat: Mouth: Mucous membranes are moist. Pharynx: Oropharynx is clear. Eyes: Extraocular Movements: Extraocular movements intact. Conjunctiva/sclera: Conjunctivae normal. Pupils: Pupils are equal, round, and reactive to light. Cardiovascular: Rate and Rhythm: Normal rate and regular rhythm. Heart sounds: Normal heart sounds. Pulmonary: Effort: Pulmonary effort is normal. Breath sounds: Normal breath sounds. Abdominal: General: Bowel sounds are normal. Tenderness: There is no abdominal tenderness. Musculoskeletal: Cervical back: Normal range of motion. Right knee: Normal. Left knee: Swelling (diffuse, mild) and crepitus present. No deformity or erythema. Decreased range of motion (limted flexion and extension). No tenderness. Normal alignment, normal meniscus and normal patellar mobility. Neurological: General: No focal deficit present. Mental Status: He is alert and oriented to person, place, and time. Psychiatric: Mood and Affect: Mood normal. ASSESSMENT/PLAN: 1. Pre-op examination - ICD9: V72.84, ICD10: Z01.818 (primary diagnosis) - I reviewed and updated patient's past medical, surgical, family history, allergies, medications, and current problem list. - Reviewed preoperative testing, EKG showed sinus bradycardia with a ventricular rate of 52 BPM and was otherwise normal. Patient states he is scheduled for pre-operative lab work 4 days prior to surgery. - He is scheduled for a Pre-Operative exam on 09/16/24 with Yanira Johnson PA-C - Functional Capacity> 4 METs - Revised Cardiac Risk Index (Taras Criteria) 3.9%, - Patient is medically optimized for robotic assisted left total knee arthroplasty pending pre-operative lab work. - Forms will be reviewed with Dr. Arroyo, then signed and faxed to surgeon. - Perioperative medicine changes: None 2. Primary osteoarthritis of left knee - ICD9: 715.16, ICD10: M17.12 - See above pre-operative exam. Continue follow-up with Orthopaedics. 3. Primary hypertension - ICD9: 401.9, ICD10: I10 - Controlled - Continue current medications - Recommend home blood pressure monitoring, to bring results to next visit - Encouraged sodium restriction, DASH or Mediterranean diet - Recommend regular aerobic exercise - Reviewed risks of hypertension and principles of treatment 4. 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 - ICD9: 414.01, ICD10: I25.10 - Stable. Medications were reviewed with patient, which included but was not limited to the reason for use, expected results, and possible side effects. Patient expressed an understanding of instructions from today's office visit. All questions were answered at this time and they agree with the treatment plan. Patient to call with any additional questions, concerns, or if symptoms worsen or persist. Andree Proctor PA-C documented in this encounter [facility] 08-23-2024 Radiology Diagnostic study note [facility] Imaging Services [facility] [place] [address] Extremity Lower without Contra MR#: [id number] Acct: [id number] Name: MICHELLE QURESHI Rep #: [id number] : 1945 78 From: Wolf Patel DO PCP: Status: REG CLI Study:Extremity Lower without Contra Date of Exam: 08/22/24 Exam# [id number] Ordering Dr: Lyn Reyes MD PROCEDURE: EXTREMITY LOWER WITHOUT CONTRA 08/22/2024 REASON FOR EXAM: PAIN IN LEFT KNEE TECHNIQUE: Axial CT images of the left knee obtained with intravenous contrast. Coronal andSagittal reconstruction series were provided. One or more dose reduction techniques were used (e.g., Automated exposure control, adjustment of the mA and/or kV according to patient size, use of iterative reconstruction technique). COMPARISON: None FINDINGS: See impression CT/Extremity Lower without Contra IMPRESSION: Advanced tricompartmental left knee osteoarthritis including near [id number]-dl-pdft articulation, subchondral sclerosis/cysts and marginal osteophytes. Chondrocalcinosis. Small left knee joint effusion with mild synovial thickening. Small David's cyst. Vascular calcifications. Mild left hip osteoarthritis. Mild Achilles tendinopathy. 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 Reading Location: [facility] CC: Dr. Hortensia Reyes MD; DINA EVANS ~ Actuary Clerk: Signed [facility] 05-15-2024 Note HNO ID: [id number] Author: LORENE GRECO LPN Service: ? Author Type: Physician Type: Progress Notes Filed: 05/15/2024 10:44 Note Text: NEW KNEE EXAM Brief History: The patient is a pleasant 78 year old male who presents to the office with left knee pain. The patient is new to my office. The patient is new to my office given the date of the last exam. The patient was last evaluated by Dr. Gonsalez 02/14/2024 including steroid injection for the same orthopaedic condition. I have personally reviewed prior documentation. I, TRA Rowe, transcribing for Dr. Viktor Mcgrath PAIN EVALUATION 05/15/2024 0953 Pain Level: 2 Pain Location: Knee-Left Description: Burning Frequency: Intermittent ORTHOPAEDIC HISTORY REVIEW: ALLERGIES No Known Allergies Current Outpatient Medications Medication Sig Dispense Refill metoprolol tartrate, short acting, (LOPRESSOR) 25 mg tablet Take 25 mg by mouth two times a day. rosuvastatin (CRESTOR) 20 mg tablet Take 1 tablet by mouth every afternoon. prednisoLONE acetate (PRED FORTE) 1 % ophthalmic suspension as needed. losartan-hydroCHLOROthiazide (HYZAAR) 100-25 mg per tablet Take 1 tablet by mouth once daily. metoprolol succinate ER (TOPROL XL) 25 mg 24 hr tablet Take 25 mg by mouth twice daily. aspirin, enteric coated (ASPIRIN, ENTERIC COATED) 81 mg EC tablet Take 81 mg by mouth once daily. Glucosamine Sulfate (GLUCOSAMINE) 500 mg tab Take 1 tablet by mouth once daily. No current facility-administered medications for this visit. PAST MEDICAL HISTORY Diagnosis Date Hypertension PAST SURGICAL HISTORY Procedure Laterality Date PAST SURGICAL HISTORY OF Right ear PRQ CARDIAC STENT W/ANGIO 1 VSL 2000 x 3 BP 101/62 Pulse 64 Ht 5' 8 (1.73m) Wt 184 lb (83.5kg) BMI 27.98 kg/(m2). Review of Systems Ortho Exam DIAGNOSTIC STUDIES: No new studies today. LARGE JOINT INJECTION/ARTHROCENTESIS: L knee joint Informed Consent Consent Obtained: Verbal Meredith Protocol A moment to CARE was completed. SIGN IN Patient/Surrogate Stated/Verified: Patient name, Date of , Relevant allergies and Intended procedure TIME OUT Relevant labs, photos, and/or imaging studies have been reviewed. Intended patient and procedure match the source document(s). Consent documented and matches the intended procedure. Correct side/site marked and visible. Medications required for procedure verified. Fire risk assessed and interventions discussed.05/15/2024 10:41 AM The procedure site was prepped in the usual sterile fashion. Site: L knee joint Medications: 40 mg triamcinolone acetonide 40 mg/mL ([id number], [id number], 08/15/25) Anesthetics: 4 mL lidocaine 20 mg/mL (2 %) ([id number], [id number], 06/15/24) Outcome: Tolerated well, no immediate complications Post-injection instructions were reviewed with the patient and the patient voiced understanding of these instructions. SIGN OUT All instruments, equipment, possible retained foreign bodies accounted for. Encounter Diagnosis ICD-10-CM 1. Primary osteoarthritis of left knee M17.12 PLAN: MEDICAL DECISION MAKING: TIME: I spent a total of 20 minutes on the date of the service which included preparing to see the patient, [id number] patient care, completing clinical documentation, obtaining and/or reviewing separately obtained history, performing a medically appropriate examination, counseling and educating the patient/family/caregiver, ordering medications, tests, or procedures, and communicating results to the patient/family/caregiver. TREATMENT RISK AND MORBIDITY: PAST MEDICAL HISTORY Diagnosis Date Hypertension PLAN: I spoke with the patient in the office where we discussed the patient's history, symptoms, physical exam findings and radiographic images. I have diagnosed the patient with left knee osteoarthritis. We spent time discussing potential treatment options including continuing conservative therapies versus surgical intervention. The patient was counseled on the pros and cons of each available option. Based on today's exam, I have recommended steroid injection into the left knee today. NSAID's, ice, heat, activity modification and physicial led therapy were also recommend for discomfort. Physical led therapy was initiated and general range of motion and strengthening exercises were described to the patient to be performed on a daily basis. All risks and benefits of steroid injection therapy was discussed with the patient. The medications I will be injecting were also thoroughly discussed with the patient including the difference in onset between the anesthetic and the steroid medications. The patient expressed understanding and wants to proceed with the injection here today. Please see injection note below. PROCEDURE NOTE: After informed consent, the patient's left knee were prepped in a sterile fashion with Betadine and alcohol for an intra (more content not included)... [facility] 05-15-2024 History of Presen t illness Narrative Associated Order(s): LARGE JOINT INJECTION/ARTHROCENTESIS: L knee joint Post-Procedure Diagnose(s): Primary osteoarthritis of left knee NEW KNEE EXAM Brief History: The patient is a pleasant 78 year old male who presents to the office with left knee pain. The patient is new to my office. The patient is new to my office given the date of the last exam. The patient was last evaluated by Dr. Gonsalez 02/14/2024 including steroid injection for the same orthopaedic condition. I have personally reviewed prior documentation. I, TRA Rowe, transcribing for Dr. Viktor Mcgrath PAIN EVALUATION 05/15/2024 0953 Pain Level: 2 Pain Location: Knee-Left Description: Burning Frequency: Intermittent ORTHOPAEDIC HISTORY REVIEW: ALLERGIES No Known Allergies Current Outpatient Medications Medication Sig Dispense Refill metoprolol tartrate, short acting, (LOPRESSOR) 25 mg tablet Take 25 mg by mouth two times a day. rosuvastatin (CRESTOR) 20 mg tablet Take 1 tablet by mouth every afternoon. prednisoLONE acetate (PRED FORTE) 1 % ophthalmic suspension as needed. losartan-hydroCHLOROthiazide (HYZAAR) 100-25 mg per tablet Take 1 tablet by mouth once daily. metoprolol succinate ER (TOPROL XL) 25 mg 24 hr tablet Take 25 mg by mouth twice daily. aspirin, enteric coated (ASPIRIN, ENTERIC COATED) 81 mg EC tablet Take 81 mg by mouth once daily. Glucosamine Sulfate (GLUCOSAMINE) 500 mg tab Take 1 tablet by mouth once daily. No current facility-administered medications for this visit. PAST MEDICAL HISTORY Diagnosis Date Hypertension PAST SURGICAL HISTORY Procedure Laterality Date PAST SURGICAL HISTORY OF Right ear PRQ CARDIAC STENT W/ANGIO 1 VSL 2000 x 3 BP 101/62 Pulse 64 Ht 5' 8 (1.73m) Wt 184 lb (83.5kg) BMI 27.98 kg/(m^2). Review of Systems Ortho Exam DIAGNOSTIC STUDIES: No new studies today. LARGE JOINT INJECTION/ARTHROCENTESIS: L knee joint Informed Consent Consent Obtained: Verbal Meredith Protocol A moment to CARE was completed. SIGN IN Patient/Surrogate Stated/Verified: Patient name, Date of , Relevant allergies and Intended procedure TIME OUT Relevant labs, photos, and/or imaging studies have been reviewed. Intended patient and procedure match the source document(s). Consent documented and matches the intended procedure. Correct side/site marked and visible. Medications required for procedure verified. Fire risk assessed and interventions discussed.05/15/2024 10:41 AM The procedure site was prepped in the usual sterile fashion. Site: L knee joint Medications: 40 mg triamcinolone acetonide 40 mg/mL ([id number], [id number], 08/15/25) Anesthetics: 4 mL lidocaine 20 mg/mL (2 %) ([id number], [id number], 06/15/24) Outcome: Tolerated well, no immediate complications Post-injection instructions were reviewed with the patient and the patient voiced understanding of these instructions. SIGN OUT All instruments, equipment, possible retained foreign bodies accounted for. Encounter Diagnosis ICD-10-CM 1. Primary osteoarthritis of left knee M17.12 PLAN: MEDICAL DECISION MAKING: TIME: I spent a total of 20 minutes on the date of the service which included preparing to see the patient, [id number] patient care, completing clinical documentation, obtaining and/or reviewing separately obtained history, performing a medically appropriate examination, counseling and educating the patient/family/caregiver, ordering medications, tests, or procedures, and communicating results to the patient/family/caregiver. TREATMENT RISK & MORBIDITY: PAST MEDICAL HISTORY Diagnosis Date Hypertension PLAN: I spoke with the patient in the office where we discussed the patient's history, symptoms, physical exam findings and radiographic images. I have diagnosed the patient with left knee osteoarthritis. We spent time discussing potential treatment options including continuing conservative therapies versus surgical intervention. The patient was counseled on the pros and cons of each available option. Based on today's exam, I have recommended steroid injection into the left knee today. NSAID's, ice, heat, activity modification and physicial led therapy were also recommend for discomfort. Physical led therapy was initiated and general range of motion and strengthening exercises were described to the patient to be performed on a daily basis. All risks and benefits of steroid injection therapy was discussed with the patient. The medications I will be injecting were also thoroughly discussed with the patient including the difference in onset between the anesthetic and the steroid medications. The patient expressed understanding and wants to proceed with the injection here today. Please see injection note below. PROCEDURE NOTE: After informed consent, the patient's left knee were prepped in a sterile fashion with Betadine and alcohol for an intra-articular injection. The skin was anesthetized with Chloroethane cold mist. The knee was injected from a superolateral approach with 6.0cc of 1% Lidocaine and 80mg of Kenalog without complication. The patient tolerated the procedure well. Post injection exam exhibited a decrease in the patient's pain level with improved range of motion. A band aid was applied to the injection site and the patient was counseled on the expected course following their procedure today. I spoke to the patient about the natural course and progression of knee osteoarthritis. The patient understands this is a progressive disease. The patient was encouraged to remain active keeping the knees flexible with gentle range of motion exercises. We also discussed and encouraged healthy weight management and maintenance of a healthy body mass index. Briefly discussed surgical therapies including total knee arthroplasty if conservative treatments fail. Follow up in our office will be as needed moving forward. All questions were answered for the patient and he knows to contact our office should his symptoms worsen or if he has concerns with our current treatment plan. Patient expressed understanding. Viktor Mcgrath MD I, Dr. Viktor Mcgrath MD have reviewed and approved the information in this document that was created in the medical record and transcribed by TRA Rowe. documented in this encounter [facility] 02-22-2024 Telephone encounter Note Patient called back and sated he received a call from [place] that they were not able to confirm his PCP. Advised patient on the below message that we are not able to provide that information over the phone as they should submit a request for the information. He said he didn't care if we tell them but once again advised we would not be able to give that over the phone as we cannot confirm that is who is calling us. Thanks! [facility] 02-22-2024 Miscellaneous Notes Patient called back and sated he received a call from [place] that they were not able to confirm his PCP. Advised patient on the below message that we are not able to provide that information over the phone as they should submit a request for the information. He said he didn't care if we tell them but once again advised we would not be able to give that over the phone as we cannot confirm that is who is calling us. Thanks! Benito with [place] [employer] called today. She was wanting to confirm if this was an established patient with Dr. Arroyo. I advised I couldn't provide that over the phone and said to send a fax. documented in this encounter [facility] 02-22-2024 Telephone encounter Note Benito with [place] [employer] called today. She was wanting to confirm if this was an established patient with Dr. Arroyo. I advised I couldn't provide that over the phone and said to send a fax. [facility] 02-14-2024 Note HNO ID: [id number] Author: THI GONSALEZ MD Service: ? Author Type: Physician Type: Progress Notes Filed: 02/14/2024 10:48 Note Text: CC: Left knee pain. HPI: Patient returns for follow up of his left knee. He has noted recurrent pain over the last four weeks. He denies any additional injury. Sweetie Fonseca OCCA, transcribing for Thi Gonsalez MD Current Outpatient Medications Medication Sig prednisoLONE acetate (PRED FORTE) 1 % ophthalmic suspension as needed. losartan-hydroCHLOROthiazide (HYZAAR) 100-25 mg per tablet Take 1 tablet by mouth once daily. metoprolol succinate ER (TOPROL XL) 25 mg 24 hr tablet Take 25 mg by mouth twice daily. predniSONE (DELTASONE) 10 mg tablet Take 5 mg by mouth every other day. aspirin, enteric coated (ASPIRIN, ENTERIC COATED) 81 mg EC tablet Take 81 mg by mouth once daily. Glucosamine Sulfate (GLUCOSAMINE) 500 mg tab Take 1 tablet by mouth once daily. No current facility-administered medications for this visit. ALLERGIES No Known Allergies PAST MEDICAL HISTORY Diagnosis Date Hypertension PAST SURGICAL HISTORY Procedure Laterality Date PAST SURGICAL HISTORY OF Right ear PRQ CARDIAC STENT W/ANGIO 1 VSL 2000 x 3 FAMILY HISTORY Problem Relation Age of Onset Heart Attack Father Dementia Sister Review of Systems Social History Tobacco Use Smoking status: Never Smokeless tobacco: Never Vaping Use Vaping status: Never Used Substance Use Topics Alcohol use: Yes Comment: 1 beer daily Drug use: Never BP 122/63 Pulse 60 Ht 5' 8 (1.73m) Wt 184 lb 1.6 oz (83.5kg) BMI 28.00 kg/(m2). Exam: Const: Appears healthy. No signs of distress. Alert. Patient is cooperative. CV: Good capillary refill. Knees: Exam of the left knee shows no joint effusion. No soft tissue swelling. No warmth nor erythema. There is no palpable tenderness. Motion is 0 to 130 degrees with good strength. No posterior calf pain. Skin: Skin warm with good capillary refill. No visible rash or suspicious lesions. Neuro: Sensation intact to light touch. Dx Studies: No new studies today. Impression: Left knee osteoarthritis. Plan: Treatment options have been discussed including therapy, steroid injection, and possibly surgery. Patient wishes to proceed with a steroid injection. Noting risks and potential benefits, and following Betadine prep, 40mg. of Kenalog and 2% Lidocaine were carefully injected anteromedially into the left knee with good tolerance. Precautions have been given. The office is to be notified immediately with any adverse reactions or concerns. Return in three months. LARGE JOINT INJECTION/ARTHROCENTESIS: L knee joint Informed Consent Consent Obtained: Verbal Meredith Protocol A moment to CARE was completed. SIGN IN Personnel directly involved with the procedure wore the appropriate PPE. Special Equipment: N/A Patient/Surrogate Stated/Verified: Patient name, Date of , Relevant allergies and Intended procedure TIME OUT Intended patient and procedure match the source document(s). Consent documented and matches the intended procedure. Correct side/site marked and visible. Medications required for procedure verified. 02/14/2024 10:04 AM The procedure site was prepped in the usual sterile fashion. Site: L knee joint Medications: 40 mg triamcinolone acetonide 40 mg/mL Anesthetics: 3 mL lidocaine 20 mg/mL (2 %) Outcome: Tolerated well, no immediate complications Post-injection instructions were reviewed with the patient and the patient voiced understanding of these instructions. SIGN OUT Post-procedure follow-up management communicated and Plan of Care Visit completed when applicable The information in this document was created with the assistance of TRA Rowe. THI Fonseca M.D. , have reviewed and approved this document for accuracy. Thi Gonsalez M.D. [facility] 02-14-2024 History of Presen t illness Narrative Associated Order(s): LARGE JOINT INJECTION/ARTHROCENTESIS: L knee joint Post-Procedure Diagnose(s): Primary osteoarthritis of left knee CC: Left knee pain. HPI: Patient returns for follow up of his left knee. He has noted recurrent pain over the last four weeks. He denies any additional injury. Sweetie Fonseca OCCA, transcribing for Thi Gonsalez MD Current Outpatient Medications Medication Sig prednisoLONE acetate (PRED FORTE) 1 % ophthalmic suspension as needed. losartan-hydroCHLOROthiazide (HYZAAR) 100-25 mg per tablet Take 1 tablet by mouth once daily. metoprolol succinate ER (TOPROL XL) 25 mg 24 hr tablet Take 25 mg by mouth twice daily. predniSONE (DELTASONE) 10 mg tablet Take 5 mg by mouth every other day. aspirin, enteric coated (ASPIRIN, ENTERIC COATED) 81 mg EC tablet Take 81 mg by mouth once daily. Glucosamine Sulfate (GLUCOSAMINE) 500 mg tab Take 1 tablet by mouth once daily. No current facility-administered medications for this visit. ALLERGIES No Known Allergies PAST MEDICAL HISTORY Diagnosis Date Hypertension PAST SURGICAL HISTORY Procedure Laterality Date PAST SURGICAL HISTORY OF Right ear PRQ CARDIAC STENT W/ANGIO 1 VSL 2000 x 3 FAMILY HISTORY Problem Relation Age of Onset Heart Attack Father Dementia Sister Review of Systems Social History Tobacco Use Smoking status: Never Smokeless tobacco: Never Vaping Use Vaping status: Never Used Substance Use Topics Alcohol use: Yes Comment: 1 beer daily Drug use: Never BP 122/63 Pulse 60 Ht 5' 8 (1.73m) Wt 184 lb 1.6 oz (83.5kg) BMI 28.00 kg/(m^2). Exam: Const: Appears healthy. No signs of distress. Alert. Patient is cooperative. CV: Good capillary refill. Knees: Exam of the left knee shows no joint effusion. No soft tissue swelling. No warmth nor erythema. There is no palpable tenderness. Motion is 0 to 130 degrees with good strength. No posterior calf pain. Skin: Skin warm with good capillary refill. No visible rash or suspicious lesions. Neuro: Sensation intact to light touch. Dx Studies: No new studies today. Impression: Left knee osteoarthritis. Plan: Treatment options have been discussed including therapy, steroid injection, and possibly surgery. Patient wishes to proceed with a steroid injection. Noting risks and potential benefits, and following Betadine prep, 40mg. of Kenalog and 2% Lidocaine were carefully injected anteromedially into the left knee with good tolerance. Precautions have been given. The office is to be notified immediately with any adverse reactions or concerns. Return in three months. LARGE JOINT INJECTION/ARTHROCENTESIS: L knee joint Informed Consent Consent Obtained: Verbal Meredith Protocol A moment to CARE was completed. SIGN IN Personnel directly involved with the procedure wore the appropriate PPE. Special Equipment: N/A Patient/Surrogate Stated/Verified: Patient name, Date of , Relevant allergies and Intended procedure TIME OUT Intended patient and procedure match the source document(s). Consent documented and matches the intended procedure. Correct side/site marked and visible. Medications required for procedure verified. 02/14/2024 10:04 AM The procedure site was prepped in the usual sterile fashion. Site: L knee joint Medications: 40 mg triamcinolone acetonide 40 mg/mL Anesthetics: 3 mL lidocaine 20 mg/mL (2 %) Outcome: Tolerated well, no immediate complications Post-injection instructions were reviewed with the patient and the patient voiced understanding of these instructions. SIGN OUT Post-procedure follow-up management communicated and Plan of Care Visit completed when applicable The information in this document was created with the assistance of TRA Rowe. I, THI GONSALEZ M.D. , have reviewed and approved this document for accuracy. Thi Gonsalez M.D. TLT/dh documented in this encounter [facility] 12-20-2023 Nurse Note Patient given HD Fluzone IM in the left deltoid at 1350 Patient tolerated injection well. Lot#: [id number] Exp date: 09/2024 Patient advised to sit in the waiting room for 15 minutes Beckie Hernández MA [facility] 12-20-2023 Nurse Note Patient given HD Fluzone IM in the left deltoid at 1350 Patient tolerated injection well. Lot#: [id number] Exp date: 09/2024 Patient advised to sit in the waiting room for 15 minutes Beckie Hernández MA documented in this encounter [facility] 12-20-2023 Instructions Cristina Arroyo MD - 12/20/2023 1:35 PM EDT Voltaren gel documented in this encounter [facility] 12-20-2023 Note HNO ID: [id number] Author: CRISTINA ARROYO MD Service: ? Author Type: Physician Type: Progress Notes Filed: 12/20/2023 16:19 Note Text: Cristina Arroyo MD [address] [place] [address] Dept: [phone] Dept Visit Date: December 20, 2023 Name: Michelle Qureshi Date of : 1945 MRN/E #: [id number] Subjective Chief Complaint: Establish Care (Used to see Dr Nguyen.) Subjective Michelle Qursehi is a 78 year old male here for annual preventative patient visit and also has the following concern(s): - Patient believes his current PCP is retiring, so is looking for a new PCP. However patient states he may still continue to see his old PCP? 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 Full code status - Patient designated code status: full - Patient designated surrogate decision maker: , lilibeth ([phone]) - Patient had decision-making capacity at the time of this visit - Individuals present: myself, patient - Reviewed 12/20/2023 PAST MEDICAL HISTORY No date: Hypertension PAST SURGICAL HISTORY No date: PAST SURGICAL HISTORY OF; Right Comment: ear 2001: PRQ CARDIAC STENT W/ANGIO 1 VSL Comment: x 3 FAMILY HISTORY Problem Relation Age of Onset Heart Attack Father Dementia Sister Social History Tobacco Use Smoking status: Never Smokeless tobacco: Never Vaping Use Vaping status: Never Used Substance Use Topics Alcohol use: Yes Comment: 1 beer daily Drug use: Never reports being sexually active and has had partner(s) who are female. 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 losartan-hydroCHLOROthiazide (HYZAAR) 100-25 mg per tablet Take 1 tablet by mouth once daily. metoprolol succinate ER (TOPROL XL) 25 mg 24 hr tablet Take 25 mg by mouth twice daily. predniSONE (DELTASONE) 10 mg tablet Take 5 mg by mouth once daily. aspirin, enteric coated (ASPIRIN, ENTERIC COATED) 81 mg EC tablet Take 81 mg by mouth once daily. Glucosamine Sulfate (GLUCOSAMINE) 500 mg tab Take 1 tablet by mouth once daily. No current facility-administered medications for this visit. Objective Objective 12/20/23 1253 BP: 120/79 BP Site: Left Arm BP Position: Sitting BP Cuff Size: Regular Adult Pulse: (!) 55 Resp: 18 SpO2: 95% Weight: 79.9 kg (176 lb 2.4 oz) Height: 175.3 cm (5' 9) Body mass index is 26.01 kg/m?. Last 3 Encounter BP Readings: Date: BP: 12/20/2023 120/79 11/10/2023 129/64 07/05/2023 104/56 Last 3 Encounter Wt Readings: Date: Wt: 12/20/2023 79.9 kg (176 lb 2.4 oz) 11/10/2023 83.5 kg (184 lb) 07/05/2023 83.5 kg (184 lb) Physical Exam Vitals and nursing note reviewed. Constitutional: General: He is not in acute distress. HENT: Head: Normocephalic and atraumatic. Eyes: Conjunctiva/sclera: Conjunctivae normal. Cardiovascular: Rate and Rhythm: Normal rate and regular rhythm. Heart sounds: No murmur heard. No friction rub. No gallop. Pulmonary: Effort: Pulmonary effort is normal. No respiratory distress. Breath sounds: Normal breath sounds. No stridor. No wheezing, rhonchi or rales. Abdominal: General: There is no distension. Palpations: Abdomen is soft. There is no mass. Tenderness: There is no abdominal tenderness. Skin: General: Skin is warm and dry. Coloration: Skin is not jaundiced. Neurological: General: No focal deficit present. Mental Status: He is alert. Assessment / Plan Michelle was seen today for establish care. Diagnoses and all orders for this visit: Encounter to establish care - I have reviewed the problem list with the patient and updated as necessary. - I have reviewed the medical, surgical, and family histories with the patient and updated as necessary. - I have reviewed the substance use, sexual activity, socioeconomic, and social documentation histories with the patient and updated as necessary. - I have reviewed the allergy list with the patient and updated as necessary. - I have reviewed the medication list with the patient and updated as necessary. Screening for depression Encounter for screening examination for oth (more content not included)... [facility] 12-20-2023 History of Presen t illness Narrative Images from the original note were not included. Cristina Arroyo MD [place] [address] [place] [address] Dept: [phone] Dept Visit Date: December 20, 2023 Name: Michelle Qureshi Date of : 1945 MRN/E #: [id number] Subjective Chief Complaint: Establish Care (Used to see Dr Nguyen.) Subjective Michelle Qureshi is a 78 year old male here for annual preventative patient visit and also has the following concern(s): - Patient believes his current PCP is retiring, so is looking for a new PCP. However patient states he may still continue to see his old PCP? 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 Full code status - Patient designated code status: full - Patient designated surrogate decision maker: , lilibeth ([phone]) - Patient had decision-making capacity at the time of this visit - Individuals present: myself, patient - Reviewed 12/20/2023 PAST MEDICAL HISTORY No date: Hypertension PAST SURGICAL HISTORY No date: PAST SURGICAL HISTORY OF; Right Comment: ear 2001: PRQ CARDIAC STENT W/ANGIO 1 VSL Comment: x 3 FAMILY HISTORY Problem Relation Age of Onset Heart Attack Father Dementia Sister Social History Tobacco Use Smoking status: Never Smokeless tobacco: Never Vaping Use Vaping status: Never Used Substance Use Topics Alcohol use: Yes Comment: 1 beer daily Drug use: Never reports being sexually active and has had partner(s) who are female. 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 losartan-hydroCHLOROthiazide (HYZAAR) 100-25 mg per tablet Take 1 tablet by mouth once daily. metoprolol succinate ER (TOPROL XL) 25 mg 24 hr tablet Take 25 mg by mouth twice daily. predniSONE (DELTASONE) 10 mg tablet Take 5 mg by mouth once daily. aspirin, enteric coated (ASPIRIN, ENTERIC COATED) 81 mg EC tablet Take 81 mg by mouth once daily. Glucosamine Sulfate (GLUCOSAMINE) 500 mg tab Take 1 tablet by mouth once daily. No current facility-administered medications for this visit. Objective Objective 12/20/23 1253 BP: 120/79 BP Site: Left Arm BP Position: Sitting BP Cuff Size: Regular Adult Pulse: (!) 55 Resp: 18 SpO2: 95% Weight: 79.9 kg (176 lb 2.4 oz) Height: 175.3 cm (5' 9) Body mass index is 26.01 kg/m . Last 3 Encounter BP Readings: Date: BP: 12/20/2023 120/79 11/10/2023 129/64 07/05/2023 104/56 Last 3 Encounter Wt Readings: Date: Wt: 12/20/2023 79.9 kg (176 lb 2.4 oz) 11/10/2023 83.5 kg (184 lb) 07/05/2023 83.5 kg (184 lb) Physical Exam Vitals and nursing note reviewed. Constitutional: General: He is not in acute distress. HENT: Head: Normocephalic and atraumatic. Eyes: Conjunctiva/sclera: Conjunctivae normal. Cardiovascular: Rate and Rhythm: Normal rate and regular rhythm. Heart sounds: No murmur heard. No friction rub. No gallop. Pulmonary: Effort: Pulmonary effort is normal. No respiratory distress. Breath sounds: Normal breath sounds. No stridor. No wheezing, rhonchi or rales. Abdominal: General: There is no distension. Palpations: Abdomen is soft. There is no mass. Tenderness: There is no abdominal tenderness. Skin: General: Skin is warm and dry. Coloration: Skin is not jaundiced. Neurological: General: No focal deficit present. Mental Status: He is alert. Assessment / Plan Don was seen today for establish care. Diagnoses and all orders for this visit: Encounter to establish care - I have reviewed the problem list with the patient and updated as necessary. - I have reviewed the medical, surgical, and family histories with the patient and updated as necessary. - I have reviewed the substance use, sexual activity, socioeconomic, and social documentation histories with the patient and updated as necessary. - I have reviewed the allergy list with the patient and updated as necessary. - I have reviewed the medication list with the patient and updated as necessary. Screening for depression Encounter for screening examination for other mental health and behavioral disorders - PHQ2 score of 0 today - GAD2 score of 0 today - Not at risk for unipolar depression - Not at risk for generalized anxiety disorder - No further intervention at this time Encounter for immunization - INFLUENZA VACCINE, PRSV FREE, AGE 65+ YR, HIGH DOSE, TRIVALENT (FLUZONE HIGH-DOSE) Advance directive discussed with patient - Patient designated code status: full - Patient designated surrogate decision maker: , lilibeth ([phone]) - Patient had decision-making capacity at the time of this visit - Individuals present: myself, patient Osteoarthritis of left knee, unspecified osteoarthritis type - Severe, per xray in 2020 - Following with ortho, getting corticosteroid injections - Patient declining surgical intervention - Patient reportedly has been on PO prednisone daily since October for this, prescribed by his previous PCP - Advised patient that I do not recommend daily PO prednisone for left knee OA and would not be refilling this medication - Advised patient that he may trial OTC voltaren gel for pain instead Return in about 1 year (around 12/19/2024) for medicare check-up. Discussed the above with the patient using shared decision-making. The patient voiced understanding and agreed with the plan. Provider: Cristina Arroyo MD Date: December 20, 2023 documented in this encounter [facility] 11-10-2023 Note HNO ID: [id number] Author: THI GONSALEZ MD Service: ? Author Type: Physician Type: Progress Notes Filed: 11/10/2023 08:54 Note Text: CC: Left knee pain. HPI: Patient returns for follow up of his left knee. He describes intermittent discomfort that is increased with activity. He denies any new injury. Sweetie Fonseca scribsandhya, transcribing for Tih Gonsalez MD Current Outpatient Medications Medication Sig losartan-hydroCHLOROthiazide (HYZAAR) 100-25 mg per tablet metoprolol succinate ER (TOPROL XL) 25 mg 24 hr tablet Take 25 mg by mouth twice daily. predniSONE (DELTASONE) 10 mg tablet aspirin, enteric coated (ASPIRIN, ENTERIC COATED) 81 mg EC tablet Take 81 mg by mouth once daily. Glucosamine Sulfate (GLUCOSAMINE) 500 mg tab Take 1 tablet by mouth once daily. atorvastatin (LIPITOR) 40 mg tablet No current facility-administered medications for this visit. ALLERGIES No Known Allergies PAST MEDICAL HISTORY Diagnosis Date Essential hypertension High cholesterol PAST SURGICAL HISTORY Procedure Laterality Date PAST SURGICAL HISTORY OF Right ear PRQ CARDIAC STENT W/ANGIO 1 VSL 2000 x 3 FAMILY HISTORY Problem Relation Age of Onset Heart Attack Father Dementia Sister Review of Systems Social History Tobacco Use Smoking status: Never Smokeless tobacco: Never Vaping Use Vaping Use: Never used Substance Use Topics Alcohol use: Yes Drug use: Never Ht 5' 9 (1.75m) Exam: Const: Appears healthy. No signs of distress. Alert. Patient is cooperative. CV: Good capillary refill. Knees: Exam of the left knee shows no joint effusion. No warmth nor erythema. There is medial joint line tenderness. Motion is 0 to 125 degrees with good strength. No posterior calf pain. Skin: Skin warm with good capillary refill. No visible rash or suspicious lesions. Neuro: Sensation intact to light touch. Dx Studies: No new studies today. Impression: Left knee osteoarthritis. Plan: Treatment options have been discussed including therapy, steroid injection, and possibly surgery. Patient wishes to proceed with a steroid injection. Noting risks and potential benefits, and following Betadine prep, 40mg. of Kenalog and 2% Lidocaine were carefully injected anteromedially into the left knee with good tolerance. Precautions have been given. The office is to be notified immediately with any adverse reactions or concerns. Return as needed. LARGE JOINT INJECTION/ARTHROCENTESIS: L knee joint Informed Consent Consent Obtained: Verbal Meredith Protocol A moment to CARE was completed. SIGN IN Personnel directly involved with the procedure wore the appropriate PPE. Special Equipment: N/A Patient/Surrogate Stated/Verified: Patient name, Date of , Relevant allergies and Intended procedure TIME OUT Intended patient and procedure match the source document(s). Consent documented and matches the intended procedure. Correct side/site marked and visible. Medications required for procedure verified. 11/10/2023 8:10 AM The procedure site was prepped in the usual sterile fashion. Site: L knee joint Medications: 40 mg triamcinolone acetonide 40 mg/mL Anesthetics: 3 mL lidocaine 20 mg/mL (2 %) Outcome: Tolerated well, no immediate complications Post-injection instructions were reviewed with the patient and the patient voiced understanding of these instructions. SIGN OUT Post-procedure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 conditions ruled out Procedures MRI PROSTATE WO/W IVCON MRI PELVIS W/O & W/CONTRAST MATERIAL Jennifer Vargas MD [address] [place] [address] [address] [place] [address] Mr Imaging [id number] Referral ID Status Reason Start Date Expiration Date Visits Requested Visits Authorized [id number] Authorized Auto-Generat ed Referral 05/18/2023 06/16/2024 1 1 Specialty Diagnoses / Procedures Referred By Gisele t Referred To Contact [facility] Diagnoses Phimosis Preoperative testing Procedures ECG COMPLETE ECG ROUTINE ECG W/LEAST 12 LDS W/I&R Gigax, Jennifer Samano MD [facility] [address] [place] [place] [address] [facility] [address] [place] [address] Referral ID Status Reason Start Date Expiration Date Visits Requested Visits Authorized [id number] Pending Review Auto-Generat ed Referral 05/18/2023 05/17/2024 1 1 Chief Complaint and Reason for Visit Chief Complaint Admit Date LEFT KNEE OSTEO August 22, 2024 11:33a m Additional Source Comments Source Comments (unrecognize d section and content) In the event this informatio n is protected by the Federal Confidentiality of Alcohol and Drug Abuse Patient Records regulations: The Federal rules restrict any use of the information to criminally investigate or prosecute any alcohol or drug abuse patient.[facility] the event this information is protected by the Federal Confidentiality of Alcohol and Drug Abuse Patient Records regulations: The Federal rules restrict any use of the information to criminally investigate or prosecute any alcohol or drug abuse patient.[facility] HospitalIn the event this information is protected by the Federal Confidentiality of Alcohol and Drug Abuse Patient Records regulations: The Federal rules restrict any use of the information to criminally investigate or prosecute any alcohol or drug abuse patient.[facility] HospitalIn the event this information is protected by the Federal Confidentiality of Alcohol and Drug Abuse Patient Records regulations: The Federal rules restrict any use of the information to criminally investigate or prosecute any alcohol or drug abuse patient.[facility] HospitalIn the event this information is protected by the Federal Confidentiality of Alcohol and Drug Abuse Patient Records regulations: The Federal rules restrict any use of the information to criminally investigate or prosecute any alcohol or drug abuse patient.[facility] HospitalIn the event this information is protected by the Federal Confidentiality of Alcohol and Drug Abuse Patient Records regulations: The Federal rules restrict any use of the information to criminally investigate or prosecute any alcohol or drug abuse patient.[facility] HospitalIn the event this information is protected by the Federal Confidentiality of Alcohol and Drug Abuse Patient Records regulations: The Federal rules restrict any use of the information to criminally investigate or prosecute any alcohol or drug abuse patient.[facility] HospitalIn the event this information is protected by the Federal Confidentiality of Alcohol and Drug Abuse Patient Records regulations: The Federal rules restrict any use of the information to criminally investigate or prosecute any alcohol or drug abuse patient.[facility] HospitalIn the event this information is protected by the Federal Confidentiality of Alcohol and Drug Abuse Patient Records regulations: The Federal rules restrict any use of the information to criminally investigate or prosecute any alcohol or drug abuse patient.[facility] HospitalIn the event this information is protected by the Federal Confidentiality of Alcohol and Drug Abuse Patient Records regulations: The Federal rules restrict any use of the information to criminally investigate or prosecute any alcohol or drug abuse patient.[facility] HospitalIn the event this information is protected by the Federal Confidentiality of Alcohol and Drug Abuse Patient Records regulations: The Federal rules restrict any use of the information to criminally investigate or prosecute any alcohol or drug abuse patient.[facility] HospitalIn the event this information is protected by the Federal Confidentiality of Alcohol and Drug Abuse Patient Records regulations: The Federal rules restrict any use of the information to criminally investigate or prosecute any alcohol or drug abuse patient.[facility] HospitalIn the event this information is protected by the Federal Confidentiality of Alcohol and Drug Abuse Patient Records regulations: The Federal rules restrict any use of the information to criminally investigate or prosecute any alcohol or drug abuse patient.[facility] HospitalIn the event this information is protected by the Federal Confidentiality of Alcohol and Drug Abuse Patient Records regulations: The Federal rules restrict any use of the information to criminally investigate or prosecute any alcohol or drug abuse patient.[facility] HospitalIn the event this information is protected by the Federal Confidentiality of Alcohol and Drug Abuse Patient Records regulations: The Federal rules restrict any use of the information to criminally investigate or prosecute any alcohol or drug abuse patient.[facility] HospitalIn the event this information is protected by the Federal Confidentiality of Alcohol and Drug Abuse Patient Records regulations: The Federal rules restrict any use of the information to criminally investigate or prosecute any alcohol or drug abuse patient.[facility] HospitalIn the event this information is protected by the Federal Confidentiality of Alcohol and Drug Abuse Patient Records regulations: The Federal rules restrict any use of the information to criminally investigate or prosecute any alcohol or drug abuse patient.[facility] (unrecognized sect ion and content) No Status Records FoundNo Status Records FoundNo Status Records FoundNo Status Records FoundNo Status Records FoundNo Status Records Found INFORMATION SOURCE (unrecogn ized section and content) DATE CREATED AUTHOR 07/23/2020 [facility] DATE CREATED AUTHOR AUTHOR'S ORGANIZ ATION 08/05/2020 [facility] DATE CREATED AUTHOR AUTHOR'S ORGANIZ ATION 10/21/2023 [facility] DATE CREATED AUTHOR AUTHOR'S ORGANIZ ATION 10/21/2023 [facility] DATE CREATED AUTHOR AUTHOR'S ORGANIZ ATION 09/19/2024 [facility] DATE CREATED AUTHOR AUTHOR'S ORGANIZ ATION 09/22/2024 [facility] Reason for Visit (unrecogniz ed section and content) Reason Comments Consult Pt states he has an elevated PSA. Denies urinary pain or difficulty with urination. Reason Comments Results Reason Comments Follow Up Patient had PSA comp leted. Patient has no new complaints. Reason Comments Patient Update Reason Comments New Reason Comments Established Patient Reason Comments Establish Care Used to see Dr Anisha hunt Reason Comments Confirming patient Reason Comments Medical Clearance Has had EKG for pre- op. Says labs have to be done 4 days prior to surgery Care Teams (unrecognized sec tion and content) Repair Miller Relationship Specialty Start Date End Date Jorge Nguyen [address] [place] [address] PCP - General Family Medicine 07/16/20 Repair Miller Relationship Specialty Start Date End Date Jorge Nguyen [address] [place] [address] PCP - General Family Medicine 07/16/20 Repair Miller Relationship Specialty Start Date End Date Joe Starkey [address] [place] [id number] PCP - General 07/26/00 07/15/20 Jorge Nguyen [address] [place] [address] PCP - General Family Medicine 07/16/20 Repair Miller Relationship Specialty Start Date End Date Jorge Nguyen MD [address] [place] [address] PCP - General Family Medicine 07/16/20 Repair Miller Relationship Specialty Start Date End Date Jorge Nguyen MD [address] [place] [address] PCP - General Family Medicine 07/16/20 Repair Miller Relationship Specialty Start Date End Date Jorge Nguyen MD [address] [place] [address] PCP - General Family Medicine 07/16/20 Repair Miller Relationship Specialty Start Date End Date Jorge Nguyen MD [address] [place] [address] PCP - General Family Medicine 07/16/20 Repair Miller Relationship Specialty Start Date End Date Jorge Nguyen MD [address] [place] [address] PCP - General Family Medicine 07/16/20 Repair Miller Relationship Specialty Start Date End Date Cristina Arroyo MD [address] [place] [address] Dr [place], [place] [id number] PCP - General Family Medicine 12/20/23 Repair Miller Relationship Specialty Start Date End Date Cristina Arroyo MD [address] [place] [address] Dr [place], [place] [id number] PCP - General Family Medicine 12/20/23 Repair Miller Relationship Specialty Start Date End Date Cristina Arroyo MD [address] [place] [address] Dr [place], [place] [id number] PCP - General Family Medicine 12/20/23 Repair Miller Relationship Specialty Start Date End Date Cristina Arroyo MD [address] [place] [address] Dr [place], [place] [id number] PCP - General Family Medicine 12/20/23 Team Status: Active Member Role Status Dates DINA EVANS Primary Care Provider Active Team Status: Inactive Member Role Status Dates Dr. Hortensia Reyes MD Attending Provider Active Start: August 22, 2024 End: August 22, 2024 Dr. Hortensia Reyes MD Referring Provider Active Start: August 22, 2024 End: August 22, 2024 CRISTINA ARROYO Primary Care Provider Active Start: August 22, 2024 End: August 22, 2024 Repair Miller Relationship Specialty Start Date End Date Cristina Arroyo MD [address] [place] [address] [place] [address] PCP - General Family Medicine 12/20/23 Inactive Administered Medications - up to 3 most recent administrations Administered Medications (un recognized section and content) Medication Order MAR Action Action Date Dose Rate Site lidocaine (PF) 20 mg/mL (2 %) 3 mL injection (XYLOCAINE) 3 mL, Injection - FOR ORTHO USE ONLY, ONCE, 1 dose, Starting on Mon07/05/23 at 1111, Until Mon07/05/23 at 1111 Given 07/05/2023 11:11 AM EDT 3 mL Knee , Left triamcinolone acetonide 40 mg injection (KeNALog 40) 40 mg, Injection - FOR ORTHO USE ONLY, ONCE, 1 dose, Starting on Mon07/05/23 at 1111, Until Mon07/05/23 at 1111 Given 07/05/2023 11:11 AM EDT 40 mg Knee , Left Goals (unrecognized section and content) Goals may be documented in a n alternate section FOR RECORDS PERTAINING TO PATIENTS WHO ARE OR HAVE BEEN ENROLLED IN A CHEMICAL DEPENDENCY/SUBSTANCEABUSE PROGRAM, SOME INFORMATION MAY BE OMITTED. This clinical summary was aggregated from multiple sources. Caution should be exercised in using it in the provision of clinical care. This summary normalizes information from multiple sources, and as a consequence, information in this document may materially change the coding, format and clinical context of patient data. In addition, data may be omitted in some cases. CLINICAL DECISIONS SHOULD BE BASED ON THE PRIMARY CLINICAL RECORDS. [facility]. provides no warranty or guarantee of the accuracy or completeness of information in this document.
[2024-09-23] MEDS: Metoprolol Tartrate 25 MG Tablet PO ×2 (07:09→22:15)
[2024-09-23] MEDS: Celecoxib 200 MG Capsule 400 MG PO (07:10)
[2024-09-23] MEDS: Gabapentin 600 MG Tablet PO (07:10)
[2024-09-23] MEDS: Acetaminophen 500 MG Tablet 1000 MG PO ×3 (07:10→22:15)
[2024-09-23] MEDS: Lactated Ringers 500 ML 999 ML IV (07:11)
--- NOTE | 2024-09-23 07:20 | PCM.PRE.AN2 ---
ASA Classification* ASA Classification ASA Classification: 3 Assessment & Plan Anesthesia* Anesthesia Assessment Anesthesia Assessment: Discussed sedation and/or anesthesia options, risks, benefits, and alternatives with patient/parents/legal guardian/POA. Questions invited. The patient/parents/legal guardian/POA seems to understand and agrees to proceed with anesthesia plan. Reviewed the physical assessment, medical history, allergy history and patient home medications list prior to surgery/procedure/anesthetic and documented any changes. Performed airway and anesthesia risk assessments. 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 When Was Last Pacemaker Check QUESTION #4 FULL TEXT: You/Your Family Experience fever (hyperthermia) with Anesthesia Last Oral Intake Last Oral intake: Last Oral Intake NPO since 05:00 09/23/24 06:56 Meds taken in AM with sips of No 09/23/24 06:56 water? Meds patient instructed to take am of surgery PONV PONV - marine cargo inspector: PONV - marine cargo inspector Female No 08/26/24 10:24 HX of Motion Sickness No 08/26/24 10:24 HX of N/V After Surgery No 08/26/24 10:24 Non-Smoker Yes 08/26/24 10:24 Duration of Surgery greater Yes 08/26/24 10:24 than 60 minutes Number of Risk Factors 2 08/26/24 10:24 PONV Score Moderate Risk 08/26/24 10:24 Height & Weight Height & Weight: Anesthesia: Height & Weight Height 5 ft 9 in 09/23/24 06:56 Weight: 85.4 kg 09/23/24 06:56 Body Mass Index (BMI) 27.8 09/23/24 06:56 Respiratory Assessment Respiratory Assessment - marine cargo inspector: Respiratory Tract Infection Hx - marine cargo inspector Hx Respiratory Tract Infection No 08/26/24 10:24 STOP Sleep Apnea STOP Sleep Apnea - marine cargo inspector: STOP Sleep Apnea - marine cargo inspector Hx Hypertension Yes 08/26/24 10:24 Hx Sleep Apnea No 08/26/24 10:24 CPAP BIPAP Do you snore loudly (louder No 08/26/24 10:24 than talking or can be heard Do you often feel tired/ No 08/26/24 10:24 fatigued/ sleepy during daytime? Has anyone observed you stop No 08/26/24 10:24 breathing during sleep? STOP Results Negative 08/26/24 10:24 QUESTION #5 FULL TEXT : Do you snore loudly (louder than talking or can be heard through closed doors)? Tobacco Use History Tobacco Use History - marine cargo inspector: Tobacco Use History - marine cargo inspector Tobacco Use Smoking Status Never smoker 08/26/24 10:24 Hx Tobacco Use No 08/26/24 10:24 Years Smoking Packs Smoked per Day Smoking Cessation Date was within the last 15 years Hx Smoking Cessation Date Hx Smoking Cessation Counseling Hematologic Medial History Hematologic Hx - marine cargo inspector: Hematologic Medical Hx - automatic buffer Hx of Blood Transfusion No 08/26/24 10:24 Hx of Transfusion in last 3 No 08/26/24 10:24 Months Date of Last Transfusion (if within last 3 months) Ever experience any problems No 08/26/24 10:24 with transfusion(s)? Specify any problems Hx of Preganancy in last 3 N/A 08/26/24 10:24 Months Nurse Filling Out Transfusion JZOLLINGE 08/26/24 10:24 & Questions: Date: 08/26/24 08/26/24 10:24 Time: 10:34 08/26/24 10:24 Patient unable to answer at this time (ie. confused, unrespo /Reproduction History /Reproductive History - marine cargo inspector: /Reproductive Hx- marine cargo inspector Hx Now No 08/26/24 10:24 Gestational Age (in weeks): EDC: Hx Hx Para Hx Section SAB No 08/26/24 10:24 Active Medications Active Medications: Current Medications Generic Name Dose Route Start Last Admin Trade Name Yonathanq PRN Reason Stop Dose Admin Acetaminophen 1,000 mg 09/23/24 09:00 09/23/24 07:10 Acetaminophen 500 Mg Tablet PO 09/23/24 09:01 1,000 mg PREOP ONE Administration Acetaminophen 1,000 mg 09/23/24 07:00 Acetaminophen 500 Mg Tablet PO Q8H [facility] Aspirin 81 mg 09/23/24 10:00 Aspirin 81 Mg Tab.Chew PO BID [facility] Celecoxib 400 mg 09/23/24 09:00 09/23/24 07:10 Celecoxib 200 Mg Capsule PO 09/23/24 09:01 400 mg PREOP ONE Administration Tranexamic Acid 2,000 mg/ 0 mg 09/23/24 09:00 Sodium Chloride 100 ml OPERA.SITE 09/23/24 09:01 X1 ONE Sodium Chloride 77.4 ml/ 0 ml 09/23/24 09:00 Ropivacaine 200 mg/ OPERA.SITE 09/23/24 09:01 Epinephrine HCl 0.6 mg/ INTRAOP ONE Ketorolac Tromethamine 30 mg/ Morphine Sulfate 5 mg Dexamethasone Sodium Phosphate 10 mg 09/23/24 09:00 Dexamethasone 10 Mg/Ml Vial IV 09/23/24 09:01 INTRAOP ONE Enteral Nutritional Formula 237 ml 09/23/24 08:00 Ensure Surgery 237 Ml Liquid PO TIDCM [facility] Famotidine 20 mg 09/23/24 10:00 Famotidine 20 Mg Tablet PO DAILY [facility] Gabapentin 600 mg 09/23/24 09:00 09/23/24 07:10 Gabapentin 600 Mg Tablet PO 09/23/24 09:01 600 mg PREOP ONE Administration Cefazolin Sodium 2 gm/ Sodium 110 mls @ 150 mls/hr 09/23/24 09:00 Chloride IV 09/23/24 09:43 INTRAOP ONE Lactated Ringer's 1,000 mls @ 125 mls/hr 09/23/24 09:00 IV 09/23/24 16:59 .Q8H [facility] Lactated Ringer's 500 mls @ 999 mls/hr 09/23/24 07:00 09/23/24 07:11 IV 09/23/24 07:30 999 mls/hr .Q31M PRIMO Administration Cefazolin Sodium 1 gm in 50 mls @ 150 mls/hr 09/23/24 07:00 IV 09/23/24 15:19 Q8H [facility] Insulin Human Lispro 1 - 6 unit 09/23/24 09:00 Insulin Lispro 100 Unit/Ml Insuln.Pen SC Q4H PRN PRN BG>/= 180, SEE PROTOCOL Protocol Ketorolac Tromethamine 15 mg 09/23/24 06:56 Ketorolac 15 Mg/Ml Vial IV 09/24/24 06:57 Q6H PRN PRN Pain Score 1-10 Meloxicam 7.5 mg 09/25/24 10:00 Meloxicam 7.5 Mg Tablet PO BID [facility] Metoprolol Tartrate 25 mg 09/23/24 07:09 Metoprolol Tartrate 25 Mg Tablet PO 09/23/24 07:10 X1 ONE Protocol Morphine Sulfate 2 - 4 mg 09/23/24 06:56 Morphine 2 Mg/Ml Syringe IV Q2H PRN PRN Pain Score 4-10 Ondansetron HCl 4 mg 09/23/24 06:56 Ondansetron 4 Mg/2 Ml Vial IV Q6H PRN PRN NAUSEA/VOMITING Oxycodone HCl 5 - 10 mg 09/23/24 06:56 Oxycodone 5 Mg Tablet PO Q4H PRN PRN Pain Score 4-10 Promethazine HCl 12.5 mg 09/23/24 06:56 Promethazine 25 Mg Tablet PO Q6H PRN PRN NAUSEA/VOMITING Promethazine HCl 12.5 mg 09/23/24 06:56 Promethazine 25 Mg/Ml Syringe IM Q6H PRN PRN NAUSEA/VOMITING Senna/Docusate Sodium 2 tablet 09/23/24 10:00 Senna/Docusate Sodium 1 Tablet PO BID PRIMO PFSH Medical History Cardiology follow-up encounter Alcohol use Prostate disease High cholesterol Non-smoker Home Medications ?Medication ?Instructions ?Recorded ?Last Taken ?Type aspirin 81 mg tablet,delayed 81 mg PO DAILY 08/29/24 09/22/24 History release (Adult Low Dose Aspirin) losartan 100 1 tab PO .qd 08/29/24 09/22/24 History mg-hydrochlorothiazide 25 mg tablet metoprolol tartrate 25 mg tablet 25 mg PO BID 08/29/24 09/19/24 History naproxen sodium 220 mg tablet 220 mg PO BID PRN pain 08/29/24 Unknown History (Aleve) rosuvastatin 20 mg tablet 20 mg PO .qd 08/29/24 09/18/24 History Allergy/AdvReac Type Severity Reaction Status Date / Time No Known Allergies Allergy Verified 09/23/24 06:53 Surgical History Hx of repair of ear bone Hx of colonoscopy History of heart surgery Social History Smoking Status: Never smoker Review of Systems (Anesthesia) ROS Narrative System reviewed and no additional complaints, except as documented.
[2024-09-23 07:42] LABS: Magnesium 2.1 mg/dL (1.5-2.2)
[2024-09-23 07:48] LABS: Bedside Glucose 144 mg/dL (74-106)
[2024-09-23] MEDS: Magnesium 1 GM over 15 mins IV (08:03)
[2024-09-23] MEDS: Cefazolin 2 GM in 0.9% Normal Saline (100mL Bag) 100 ML IV (08:52)
[2024-09-23] MEDS: dexAMETHasone 10 MG/ML Vial IV (08:57)
[2024-09-23] MEDS: TXA 2000mg in NS 100ml (Placed in Wound) OPERA.SITE (09:00)
--- NOTE | 2024-09-23 09:00 | KNEE_PTH ---
PATIENT: MICHELLE QURESHI LOC: MS3 U#:[id number] AGE/SX: 78/M ROOM: [id number] RE09/23/[address]: Dr. Brody Herrera MD : 1945 BED: 1 DIS: 09/24/2024 SPEC #: [id number] RECD: 09/23/24 13:28 STATUS: ADRIANA RELisa #: [id number] CRISTY: 09/23/24 09:[address]: Brody Herrera DEPT: SURGICAL PATHOLOGY RECD BY: Domo Freitas ENTERED: 09/23/24 14:13 SP TYPE: TOTAL KNEE OTHR DR: Dr. Ja Bain, DO Tissues: A - Knee, NOS Procedures: Decalcification bone/plaque Surgery Specimen Level III HEADER OPERATION: JANNETTE, robotic assisted left total knee arthroplasty PRE-OP DIAGNOSIS: Primary osteoarthritis left knee, varus deformity left knee TISSUE SUBMITTED: A- Debrided bone and tissue, left MICROSCOPIC DIAGNOSIS A. bone and soft tissue, left knee, total arthroplasty: * Severe degenerative osteoarthritis MICROSCOPIC DESCRIPTION Slides are reviewed. GROSS DESCRIPTION A. Received in formalin labeled with the patient's name and date of . Designated as debrided knee bone, tissue: Left is a 12.5 x 11.4 x 2.9 cm aggregate of irregular bone fragments and soft tissue, collectively comprising in the joint. The articular surfaces are galarza with focal areas of eburnation. Stamp Analyst sections are submitted in 2 cassettes, following decalcification as follows: A1: Bone with eburnationA2: Soft tissue SLC 09/24/2024 CPT:36335,76030
[2024-09-23] MEDS: JPS (Morphine 10mg/ml) OPERA.SITE (10:11)
--- NOTE | 2024-09-23 10:19 | PCM.OPRPT ---
Operative Report (Standard) Operative Information Date of Procedure: 09/23/24 Pre-Operative Diagnosis: Left knee primary osteoarthritis Post-Operative Diagnosis: Left knee primary osteoarthritis Surgery/Procedure Performed: Left knee minimally invasive robotic assisted total arthroplasty private branch exchange repairer: Yes Ticket Writer: Yanira Johnson Tasks completed by senior agricultural assistant: Other (See body of operative report) Additional carpenter assistant installer?: No Type of Anesthesia: Spinal RN Documented Start/Stop Times: Operation Date: 09/23/24 09:00 Case Time Into Pre-Op 09/23/24 06:35 Anesthesia Start 09/23/24 08:52 Into Room 09/23/24 08:52 Out of Pre-Op 09/23/24 08:54 Procedure Start 09/23/24 09:19 Procedure End 09/23/24 11:11 Anesthesia End 09/23/24 11:19 Out of Room 09/23/24 11:19 Into Recovery 09/23/24 11:20 Out of Recovery 09/23/24 13:00 Into Phase II Recovery Procedure Start Time: 09:19 Procedure Stop Time: 11:11 Select all DRAINS/GRAFTS/IMPLANTS that apply: Prosthetic device Prosthetic device details: See body of operative report Special Medications: 2 g Ancef, 1 g TXA at incision, 1 g TXA closure, 10 mg Decadron, joint cocktail (5 mg Duramorph, 30 mL of 0.5% Ropivicaine, 1000 units of epinephrine, 30 mg of Toradol) Estimated Blood Loss: 600 ML Fluids Replaced: 1500 ML Specimen collected: Yes Description of specimen(s) removed: Bony cuts Description of surgery: Implants used: 1. Brownwood size 4 triathlon cruciate retaining distal femoral press-fit component 2. Wendy size 5 press-fit tritanium tibial baseplate 3. [place] X3 9 mm CS polyethylene 4. [place] X3 38 mm asymmetric patella Brief history operative indications: 70-year-old male with history of left knee osteoarthritis with radiographic findings with loss of joint space, osteophyte formation and subchondral sclerosis. Failed conservative measures as mentioned in the H&P. Discussion of total knee arthroplasty as well as risk and benefits were discussed the patient including but not limited to blood loss, DVTs, PEs, neurovascular damage, general risk of anesthesia including loss of life, and stiffness or instability were discussed with patient. Patient demonstrated understanding and was able to sign informed consent. Procedure: On the date of procedure patient's left lower extremity was marked in the preoperative area. The patient was then taken back to the operating room where the patient was placed on the table in the supine position. All bony prominences were identified a well-padded. Anesthesia assumed control of the C-spine and airway and remained controlled throughout the remainder of the procedure. A tourniquet was placed on the left upper thigh and the leg was prepped in a sterile fashion. The surgeon then scrubbed at this time .Upon reentering the room left lower extremity was draped in a standard orthopedic fashion. A timeout was then called and everyone agreed upon the side, the site, the procedure to be performed, patient's identity and antibiotics given. Esmarch bandage was used to exsanguinate the extremity and the tourniquet was placed up to 250 mmHg with the knee in flexion. A midline skin incision was made and sharp dissection was taken down through skin subcutaneous tissue and fat. The standard medial parapatellar incision was made and the patella was subluxed laterally. An Appropriate deep MCL release was done and the fat pad was resected. Our attention was then directed to the patella. The patella was everted and a flat resection was made. The knee was then flexed up in 2 femoral pins were placed inside the incision and 2 tibial pins were placed outside the incision in the medial tibia bicortically. Once this was completed the 2 checkpoints in the femur and tibia were placed. Knee was then flexed up and the bony landmarks were registered. Once this was completed knee was taken through range of motion and manually stressed allowing us to a plan for an appropriate tibial cut. The robotic arm was brought into the field sterilely and checkpoint and saw were registered. Based on the patient's deformity the tibial cut was made 2 degrees varus. At this time the tensioner was then placed in the joint and ligament tension was checked at 90 degrees and full extension. Based on the patient's ligamentous tension appropriate adjustments were made to the operative plan and ligament releases were done. Once we were happy with our operative plan with balanced flexion and extension gaps our attention was directed to the femur. The robot was brought into the field sterilely and registered. Posterior condylar cuts, anterior chamfer cuts and anterior cuts were appropriately made for a size 4 femur. When these were completed the saws were switched out in the distal femoral and posterior chamfer cuts were made. Protecting the soft tissue throughout this time. A size 5 tibial base plate was selected. the knee was flexed to 90 degrees and the soft tissues and posterior osteophytes were removed from the joint. 40 cc of the periarticular injection was injected into the posterior medial corner of the joint. The appropriate trials were then placed on the femur and tibia. A trial polyethylene was trialed to ensure proper balancing and stability of the knee. The appropriate tibial internal rotation was then marked with a bovie. Our attention was then directed to the patella. The lug holes were drilled and the patella trial was placed. Patellar tracking was checked and deemed appropriate. Once we were happy lug holes were drilled for the femur and trial components were removed. The tibia was subluxed and pinned into place and the keel was punched and drilled appropriately. Final components were verified and opened. The wound was copiously irrigated with normal saline. When the cement was ready the components were impacted into place starting with the tibia then the femur, finally the patella was compressed into place. The trial poly component was placed and the knee was placed in full extension. Once the the implants were secured, the tracking, alignment and balance were verified and a size 9 mm CS polyethylene component was placed. Once the final components were placed a 3-minute dilute Betadine lavage was performed followed by an Irrisept lavage was performed and the wound was copiously irrigated with normal saline solution and the periarticular injection was given. The wound was closed in a layer lópez fashion using #1 vicryl interrupted sutures for the arthrotomy, 2-0 interrupted Vicryl suture for the subcuticular layer and bernarda for final skin closure. A sterile compressive dressing was then placed. The patient was then awakened from anesthesia, transferred [facility] and transferred to the PACU for recovery. Post op plan DVT ppx: ASA 81mg BID, thigh high compression stockings Follow up: in office in 2 weeks for wound check PT: to start POD #0 at hospital, outpatient PT should be arranged. My physician carpenter assistant installer was a vital part of this case, they was important because there was not another skilled set of hands available to their training and aptitude needed for safe and appropriate completion of this case. They were important in appropriate retraction during the case, and protection of soft tissues during bony cuts. In particular the experience and skill of this carpenter assistant installer made for safe retraction and exposure during implantation of medical implants without damage to vital soft tissues or structures. His intimate knowledge of the case and my steps aided in safe and expedient completion of the procedure as well as appropriate position of the leg during the case. He was also vital in assisting with closure under my direct supervision. Due to the complexity of this case robotic arm was used to assist in the surgery to improve accuracy and clinical outcomes. Surgical Findings: Stage IV osteoarthritis. Stable knee with good patella tracking Complications Complications: No Admit VTE Documentation VTE Present on Admission: No VTE Mechan Device Prophylaxis: SCD's and Thigh High LEVAR Hose VTE Pharm Prophylaxis ordered?: Yes
--- NOTE | 2024-09-23 11:23 | PCM.POST.ANE ---
Anesthesia: Postop Eval I Current Vital Signs Temperature: 97.3 F Pulse Rate: 63 Blood Pressure: 128/76 Respiratory Rate: 16 Pulse Ox: 98 Assessment Airway patent: Yes Spontaneous unlabored respirations: Yes nausea: No Vomiting: No Anesthesia Complication: No Fluid Hydration Crystalloid volume administer (ml): 1,600 Total IV fluid infused: 1,600 Progress Note Anesthesia document: Postop Eval 1 completed: Yes
--- NOTE | 2024-09-23 11:25 | RAD_ITS ---
PROCEDURE: KNEE 1 OR 2 VIEWS 09/23/2024 REASON FOR EXAM: POST OP KNEE REPLACEMENT TECHNIQUE: Two views of the left knee were obtained. COMPARISON: None. FINDINGS: AP and lateral views of the left knee demonstrate a total knee arthroplasty. The patellar, femoral and tibial components appear normal apposition. There is normal postoperative fluid and air in the knee joint. Skin bernarda are noted over the knee, anteriorly. RAD/Knee 1 or 2 Views IMPRESSION: Status post left total knee arthroplasty. There are no complications evident. Reading Location: [place] [address]
--- NOTE | 2024-09-23 11:39 | POSTOPAN2_ITS ---
Anesthesia Postop Eval I Sum Postop Eval Completion status Anesthesia document: Postop Eval 1 completed: Yes Anesthesia Postop Eval I Summary Anesthesia Postop Eval I Summary: Anesthesia Postop Eval I: Assessment Summary Airway patent Yes 09/23/24 11:23 [email or web address] Spontaneous unlabored Yes 09/23/24 11:23 [email or web address] respirations Mental status nausea No 09/23/24 11:23 [email or web address] Vomiting No 09/23/24 11:23 [email or web address] Anesthesia Postop Eval I: Fluid Summary Crystalloid volume administer 1,600 09/23/24 11:23 [email or web address] (ml) Colloids volume administered ( ml) Blood Product volume administered (ml) Total IV fluid infused 1,600 09/23/24 11:23 [email or web address] Anesthesia Postop Eval I: Summary Notes Anesthesia Complication No 09/23/24 11:23 [email or web address] Anesthesia Complication Comment: Post-operative progress note Anesthesia: Postop Eval II Evaluation Mental status: Awake Pain Level: 2 nausea: No Vomiting: No
--- NOTE | 2024-09-23 11:39 | PCM.POSTANE2 ---
Anesthesia Postop Eval I Sum Postop Eval Completion status Anesthesia document: Postop Eval 1 completed: Yes Anesthesia Postop Eval I Summary Anesthesia Postop Eval I Summary: Anesthesia Postop Eval I: Assessment Summary Airway patent Yes 09/23/24 11:23 [email or web address] [email or web address] Spontaneous unlabored Yes 09/23/24 11:23 [email or web address] respirations Mental status nausea No 09/23/24 11:23 [email or web address] [email or web address] Vomiting No 09/23/24 11:23 [email or web address] [email or web address] Anesthesia Postop Eval I: Fluid Summary Crystalloid volume administer 1,600 09/23/24 11:23 [email or web address] [email or web address] (ml) Colloids volume administered ( ml) Blood Product volume administered (ml) Total IV fluid infused 1,600 09/23/24 11:23 [email or web address] [email or web address] Anesthesia Postop Eval I: Summary Notes Anesthesia Complication No 09/23/24 11:23 [email or web address] Anesthesia Complication Comment: Post-operative progress note Anesthesia: Postop Eval II Evaluation Mental status: Awake Pain Level: 2 nausea: No Vomiting: No
[2024-09-23] MEDS: LR 1,000 ML - 125 ML/HR (POST BOLUS) POST OP IV (12:30)
--- NOTE | 2024-09-23 13:30 | PCM.CONS.GEN ---
Assessment & Plan Assessment/Plan (1) Status post left knee replacement: (2) HTN (hypertension): PLAN: Plan Patient is a 78-year-old male who presented to [facility] on 09/23/2024 for planned left knee replacement. Medicine consulted postoperatively for medical management. 1. Left knee primary osteoarthritis ? Orthopedic surgery primary. S/p left knee replacement with Dr. Herrera on 09/23. Tolerated procedure well, no intraoperative complications noted. Pain control, DVT prophylaxis and further management per orthopedics. PT/OT/case management following. 2. History of CAD with stenting, hypertension, hyperlipidemia ? History of stenting back in 2009. Hypertensive to the 150s to 160s postoperatively with good pain control. Okay to resume home Lopressor, losartan?hydrochlorothiazide and rosuvastatin. On baby aspirin twice daily for DVT prophylaxis as noted below. IV hydralazine as needed ordered for SBP greater than 170. DVT prophylaxis: Baby aspirin twice daily per orthopedics Total clinical time spent by myself addressing the patient's medical issues, reviewing all the data, and collaborating with patient's care team: 35 minutes. HPI Consult Data Date of Consult: 09/23/24 HPI Narrative Reason for Consultation: Postoperative medical management HPI Narrative: MICHELLE QURESHI, is a 78 M who presented to [facility] on 09/23/2024 for planned left knee replacement. Medicine consulted postoperatively for medical management. Patient had left knee minimally invasive robotic assisted total arthroplasty done with Dr. Herrera this morning. I saw the patient at bedside later this afternoon, was present. Patient was up and walking with therapy when I saw him. He appeared comfortable and noted that he had only very mild left knee pain at this time. He denied any other acute pain or discomfort. No other acute concerns at this time. [facility] Medical History Cardiology follow-up encounter Alcohol use Prostate disease High cholesterol Non-smoker Home Medications ?Medication ?Instructions ?Recorded ?Last Taken ?Type aspirin 81 mg tablet,delayed 81 mg PO DAILY 08/29/24 09/22/24 History release (Adult Low Dose Aspirin) losartan 100 1 tab PO .qd 08/29/24 09/22/24 History mg-hydrochlorothiazide 25 mg tablet metoprolol tartrate 25 mg tablet 25 mg PO BID 08/29/24 09/19/24 History naproxen sodium 220 mg tablet 220 mg PO BID PRN pain 08/29/24 Unknown History (Aleve) rosuvastatin 20 mg tablet 20 mg PO .qd 08/29/24 09/18/24 History Allergy/AdvReac Type Severity Reaction Status Date / Time No Known Allergies Allergy Verified 09/23/24 06:53 Surgical History Hx of repair of ear bone Hx of colonoscopy History of heart surgery Social History Smoking Status: Never smoker ROS Constitutional Constitutional: Denies chills, fatigue, fever(s) or weakness Cardiovascular Cardiovascular: Denies chest pain Respiratory/Chest Respiratory/Chest: Denies shortness of breath at rest Gastrointestinal Gastrointestinal: Denies abdominal pain Musculoskeletal Musculoskeletal: Denies arthralgias or myalgias Neurologic Neurologic: Denies dizziness, focal weakness or headache(s) Physical Exam Const alert, oriented x3, no apparent distress, average body habitus, healthy appearing and well nourished Constitutional Narrative: Pleasant elderly male, standing at edge of the bed, comfortable appearing and answering questions appropriately, in no acute distress. General Appearance: cooperative, comfortable, well kempt and well developed HEENT normocephalic, head/scalp atraumatic, hearing grossly normal bilaterally, nasal mucous membranes and turbinates normal and moist oral mucous membranes Eyes PERRL, EOMs intact bilaterally and conjunctivae normal Neck full ROM Chest inspection of chest normal Resp normal respiratory effort, normal air movement, no use of accessory muscles and clear to auscultation bilaterally Cardio regular rate, regular rhythm, no murmurs and peripheral pulses 2+ throughout GI normal to inspection, nondistended, normoactive bowel sounds, soft to palpation, non-tender and non-distended Back/Spine normal ROM Extremity Extremity Narrative: Left knee with brace in place. Skin no rashes or lesions noted Psych mental status grossly normal Lab / Micro Data Labs: Laboratory Results - last 24 hr 09/23/24 07:00: Magnesium 2.1 09/23/24 07:03: POC Glucose 144 H Imaging Radiology Impression Knee X-Ray 09/23/24 11:25 IMPRESSION: Status post left total knee arthroplasty. There are no complications evident. Reading Location: [place] [address] Charges/Coding Visit Charges Inpatient E&M: 15826 Subs Hosp L2
[2024-09-23] MEDS: Famotidine 20 MG Tablet PO (14:22)
[2024-09-23] MEDS: Aspirin 81 MG TAB.CHEW PO ×2 (14:22→22:14)
[2024-09-23] MEDS: Cefazolin 1 GM/50 ML BAG IV (16:34)
[2024-09-23] MEDS: Ensure Surgery 237 ML LIQUID PO (16:34)
[2024-09-23] MEDS: oxyCODONE 5 MG Tablet PO (17:15)
[2024-09-23] MEDS: Atorvastatin Calcium 40 MG Tablet PO (22:14)
[2024-09-23] MEDS: Senna/Docusate Sodium 1 Tablet 2 TABLET PO (22:16)
[2024-09-23] MEDS: 0.9% Saline Lock 10 ML Syringe IV (22:40)
[2024-09-24 01:14] VITALS: BMI 27.8
[2024-09-24 01:44] VITALS: BP 142/85; PULSE 71; RESP 18; TEMP 36.8; O2SAT 92
[2024-09-24] MEDS: 0.9% Saline Lock 10 ML Syringe IV (02:20)
[2024-09-24] MEDS: Cefazolin 1 GM/50 ML BAG IV (02:20)
[2024-09-24 03:44] VITALS: BP 125/69; PULSE 62; RESP 18; TEMP 36.7; O2SAT 93
[2024-09-24 03:46] VITALS: BMI 27.8
[2024-09-24] MEDS: Acetaminophen 500 MG Tablet 1000 MG PO ×2 (05:45→13:47)
[2024-09-24 07:20] LABS: Hematocrit 31.8 % (40-54); Hemoglobin 10.9 g/dL (13.0-16.5); Mean Corp Hgb Conc 34.3 g/dL (32-36); Mean Corpuscular Hgb 30.1 pg (27.0-32.0); Mean Corpuscular Volume 87.8 fL (80-94); Mean Platelet Vol. 10.1 fl (6.2-12.0); Platelet Count 248 K/mm3 (150-450); Red Blood Count 3.62 M/mm3 (4.6-6.2); White Blood Count 16.6 K/mm3 (4.4-11.0)
[2024-09-24 07:42] VITALS: BP 138/61; PULSE 64; RESP 18; TEMP 36.9; O2SAT 96
[2024-09-24 07:43] LABS: Anion Gap 11 (5-15); BUN 20 mg/dL (4-19); BUN/Creat Ratio 23.7 RATIO (10-20); Carbon Dioxide 21.5 mmol/L (21.0-32.0); Chloride 106 mmol/L (98-108); Creatinine, Serum 0.83 mg/dL (0.70-1.20); EST Glomerular Filtration Rate 89 (>60); Estimated Creatinine Clearance 79.45 ml/min (50-250); Glucose 134 mg/dL (70-99); Potassium 4.3 mmol/L (3.3-5.1); Sodium Level 139 mmol/L (133-145)
--- NOTE | 2024-09-24 08:47 | PCM.PN.ORT ---
Subjective Subjective Patient appears to be uncomfortable in bed. Patient's and nurse are at bedside. Patient's nurse states that patient is much more confused than yesterday. Patient has been a bit impulsive and removing 2 of his own IVs and confused when talking to the nurse. Patient's nurse states the only thing that was different from yesterday was that she had given him some oxycodone. Patient denies any nausea, vomiting, dizziness. Patient denies any shortness of breath, chest pain, calf pain. Patient denies any fevers, chills, signs of infection. Objective Data Objective Data Vital Signs: Vital Signs Temp Pulse Resp BP Pulse Ox O2 Del Method O2 Flow Rate 98.4 F 64 18 138/61 H 96 Room Air 4 09/24/24 07:42 09/24/24 07:42 09/24/24 07:42 09/24/24 07:42 09/24/24 07:42 09/24/24 07:43 09/23/24 13:14 Oxygen Flow Rate (L/min) 4 Oxygen Delivery Method Room Air Weight: 85.4 kg Body Mass Index (BMI) 27.8 Intake & Output: Intake and Output for Last 24 Hours 09/22/24 09/23/24 09/24/24 23:59 23:59 23:59 Intake Total 3900 / 3900 50 / 50 Output Total 1200 / 1200 750 / 750 Balance 2700 / 2700 -700 / -700 Lab / Micro Data 09/24/24 06:17 09/24/24 06:17 Labs: Laboratory Results - last 24 hr 09/24/24 06:17: WBC 16.6 H, RBC 3.62 L, Hgb 10.9 L, Hct 31.8 L, MCV 87.8, MCH 30.1, MCHC 34.3, RDW Std Deviation 42.0, RDW Coeff of Marcial 13.0, Plt Count 248, MPV 10.1, Sodium 139, Potassium 4.3, Chloride 106, Carbon Dioxide 21.5, Anion Gap 11, BUN 20 H, Creatinine 0.83, Estim Creat Clear Calc 79.45, Est GFR (MDRD) Non-Af 89, BUN/Creatinine Ratio 23.7 H, Glucose 134 H, Calcium 9.0 Radiography Diagnostic Testing: Radiology Impression Knee X-Ray 09/23/24 11:25 IMPRESSION: Status post left total knee arthroplasty. There are no complications evident. Reading Location: [place] [address] Physical Exam Narrative LEVAR hose in place bilaterally SCDs in place bilaterally Dressing is clean dry and intact. Dorsiflexion plantarflexion performed actively without pain or restriction Sensation intact to light touch. Neurovascularly intact overall Negative Homans bilaterally Const alert, oriented x3 and no apparent distress Assessment & Plan Assessment/Plan (1) Status post left knee replacement: PLAN: Status post left total knee arthroplasty day 1 1. DVT prophylaxis: Patient will be on aspirin 81 mg twice daily for 4 weeks postoperatively. Patient will be wearing LEVAR hose for 2 weeks postoperatively. Patient was educated can remove LEVAR hose at night for comfort. 2. Pain medications: Patient was instructed to take Tylenol 1000 mg every 8 hours [id number] taking no more than 3000 mg in 24 hours. Patient will be on meloxicam for 30 days postoperatively. Patient will also be taking oxycodone as needed for pain control. OARRS report was reviewed today. Risk of abuse potential was discussed and reviewed. Patient was advised not to drive motor vehicle or operate heavy equipment while taking narcotic pain medication. Patient voiced understanding. 3. Constipation: Patient was instructed to take senna as instructed until first bowel movement to decrease risk of impaction following surgery. Patient was educated if she has not had a bowel movement in 3 days to call our office for reevaluation. 4. Physical therapy: Patient will be working with physical therapy being weightbearing as tolerated with a walker. Patient does have outpatient physical therapy scheduled for . 5. H&H: 10.9/31.8. Vitals are stable and patient is currently asymptomatic. Hemoglobin above 10 so do not need to start anemia protocol at this time. 6. Reactive leukocytosis: White blood cell count is currently 16.6. Patient did receive intraoperative Decadron. Vitals are stable and afebrile. 7. Patient's preoperative culture showed bacillus bacteria but do have consult to infectious disease to help manage postoperative medications and antibiotic regimen. 8. Incentive spirometer: Patient was encouraged to use incentive spirometer every hour that he is awake for the first week to exercise lung and decrease risk postoperative lung infection. 9. Patient is to follow-up per postoperative instructions. 10. Appreciate recommendations from medicine for further treatment and management of patient. 11. Appreciate recommendations from case management for safe and proper discharge of patient. 12. Patient will have a follow-up appointment in 2 weeks with our office. 13. Disposition: At this time we will plan to watch patient throughout the day to see how patient progresses. With patient's level of confusion at this time we may plan to keep patient if confusion does not improve throughout the day. If confusion continues to improve throughout the day may consider discharge later. Will plan to have patient work with physical therapy in hospital today. Patient does have physical therapy scheduled as an outpatient for . Patient will continue to be weightbearing as tolerated with walker. Patient does have follow-up scheduled with our office in 2 weeks. Patient was encouraged to call with any questions, concerns, new problems. All questions were answered to best my ability.
[2024-09-24 09:14] VITALS: BMI 27.8
--- NOTE | 2024-09-24 09:39 | PCM.DC ---
Discharge Instructions Diet Discharge Diet: No restrictions DC O2, CPAP, BIPAP needs Home O2 Discharge instructions: No Dressing / Incision Discharge Activity: May Not Drive (Until can walk 100 feet with use of a cane and is no longer taking narcotic pain medications.) Weight Bearing Status: Weight bearing as tolerated (With walker.) Keep extremity elevated above heart level: Left Leg Dressing / Incision Call your doctor if your incision/area has: Continuous Slow Oozing, Sudden Increased Bleeding, Increased Pain/ Swelling, Increased Redness and Foul Smelling Discharge Call your doctor if you observe: Fever of 101 or Higher, Coldness, Increased Pain, Numbness or Tingling, Change in Color, Inability to urinate, Inability to have a bowel movement, Using more than 1 pad per hour, Shortness of breath, Dizziness, Fainting spells, Swelling in the ankles, Chest pain, Increased palpitations (irregular heartbeat), Calf discomfort and Uncontrolled pain Remove Dressing in: 5 days (Can remove dressing on postoperative day 5. 09/28/2024.) Cleanse incision/area with: Soap & Water Additional Dressing/Incision Instructions:: Patient was educated he can get dressing wet on postoperative day 1. Patient can remove dressing on postoperative day 5. Patient was advised to not do any soaking, submerging for 6 weeks postoperatively. Patient was educated to not do any lotions, salves, oils over incision for 6 weeks postoperatively. OARRS report was reviewed by myself today. Patient was educated not to operate motor vehicle or machinery while taking narcotic pain medications. Follow Up Care Test Results: Test results from this visit will be discussed in further detail at your follow-up appointment, if applicable. Discharge Plan Admission Admit Date/Time: 09/23/24 06:56 Attending Provider: Brody Herrera Primary Care Provider: CRISTINA BRAUN Consulting Providers: Curtis Valerio Discharge Orders/Prescriptions Prescriptions: New sennosides-docusate sodium [Stimulant Laxative Plus] 8.6-50 mg Tablet 2 tab PO BID 3 Days Qty: 12 0RF acetaminophen 500 mg Tablet 1,000 mg PO Q8 Qty: 0 0RF meloxicam 7.5 mg Tablet 7.5 mg PO BID 30 Days Qty: 60 0RF famotidine 20 mg Tablet 20 mg PO DAILY 30 Days Qty: 30 0RF aspirin 81 mg capsule 81 mg PO BID 30 Days Qty: 60 0RF Rx Instructions: Take twice daily until 4 weeks postoperatively. oxycodone 5 mg Tablet 5 - 10 mg PO Q4H PRN PRN (Reason: As needed for pain) 7 Days Qty: 42 0RF Continued losartan-hydrochlorothiazide 100-25 mg tablet 1 tab PO .qd rosuvastatin 20 mg tablet 20 mg PO .qd metoprolol tartrate 25 mg tablet 25 mg PO BID naproxen sodium [Aleve] 220 mg tablet 220 mg PO BID PRN (Reason: pain) No Action aspirin [Adult Low Dose Aspirin] 81 mg tablet,delayed release (DR/EC) 81 mg PO DAILY Other Ambulatory Orders: 12 Lead EKG (Routine) Timeframe: 1 Day Location: None Selected Ordered By: Dr. Brody Herrera Albumin, Serum (Routine) Timeframe: 20240916 Facility: [facility] - Location: Laboratory Ordered By: Dr. Brody Herrera Basic Metabolic Profile (BMP) (Routine) Timeframe: 20240916 Facility: [facility] - Location: Laboratory Ordered By: Dr. Brody Herrera CBC W/Diff, Automated (Routine) Timeframe: 20240916 Facility: [facility] - Location: Laboratory Ordered By: Dr. Brody Herrera Magnesium (Routine) Timeframe: 20240916 Facility: [facility] - Location: Laboratory Ordered By: Dr. Yao Erwin MRSA/SAID SCREEN (PRE SURG) (Routine) Timeframe: 20240916 Facility: [facility] - Location: Laboratory Ordered By: Dr. Brody Herrera Referrals / Follow Up: APARNA EVANS [Other] Disposition Disposition (needs filled in before D/C Order can be placed): Home, Self Care
[2024-09-24] MEDS: Senna/Docusate Sodium 1 Tablet 2 TABLET PO (09:41)
[2024-09-24] MEDS: Famotidine 20 MG Tablet PO (09:41)
[2024-09-24] MEDS: Aspirin 81 MG TAB.CHEW PO (09:41)
[2024-09-24 09:42] VITALS: BP 120/46; PULSE 60
[2024-09-24 09:45] VITALS: BP 120/46; PULSE 60; RESP 18; TEMP 36.3; O2SAT 96
--- NOTE | 2024-09-24 11:44 | CASEMGMT ---
Met with patient and his to complete ALEXANDER form. ALEXANDER form and its content were verbally explained and patient's questions were answered to the best of my ability.? Patient voiced understanding and signed ALEXANDER form.? Patient provided a copy of signed ALEXANDER form and original placed in patient's chart.? Patient had no further questions. Hina Baca, Discharge Planning Asst
--- NOTE | 2024-09-24 11:48 | CASEMGMT ---
Addendum entered by Queenie Corona 09/24/24 12:27: Per Phil@ [employer], average co-pay for walker after insurance is billed is $3-8, with the most he has seen is $12. Pt and made aware. They state they would like to get a WW from [facility] before dc. Addendum entered by Queenie Corona 09/24/24 12:13: Call placed to [facility] in [facility]. Appt is 09/26 @ 1:40 PM. DC plan was updated. Original Note: RN?CM?PICK UP AND DELIVERY DRIVER?CM?to room to meet with patient for initial transition planning/care coordination?assessment.?RN?CM?introduced self and role at [facility].? Pt voices understanding and consents to?assessment?at this time.? Pt resting in bed in no distress at this time.? @ bedside. Pt is A/O at this time and answers all questions appropriately.?? Care providers, pharmacy, and demographics verified/updated at this time. Strata: 1 PCP: Dr Fahad Arroyo Specialists: Dr Herrera-ortho, Dr Vargas-urologist @ [facility], Dr Rowe-mounting machine operator/Andre Preferred Pharmacy: [facility] @ [place]. Insurance: [employer] MCR Prescription Benefit:?yes LNOK: [place] Living Arrangements: Lives w/ in 2-story home w/no steps to enter through the garage. 12 total steps to upper floor. Pt plans to stay on the basement level of the home initially. 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 Transportation:?Pt states drives self and states no transportation concerns at this time.? also drives and will take pt home @ [place]. DME: ?States has the following DME:?Pt has a walker that was his dad's and also a neighbor has one that he can borrow, but neither have wheels on them. He plans to attach wheels on the walker when he gets home, stating he has wheels that could be attached and that he and his son will figure it out when he returns home. Made aware he can get one of his own through his insurance if he wishes. He and would like to know how much co-pay would be before making decision. Pt states no need for further DME at this time.? HHC/SNF: No hx of either. Has done OP therapy in the past. OP Therapy: Pt is scheduled to do OP therapy in [facility] on per . Pt wishes to return home and states has no concerns with going home at time of discharge.??CM?to follow for any further discharge planning/needs.? Pt and voice no further concerns/needs at this time.? PLAN:??Home w/OP therapy. Follow for possible WW. Yennifer BSN?RN?CM
--- NOTE | 2024-09-24 12:34 | CASEMGMT ---
Addendum entered by Ayana Mahajan 09/24/24 12:38: TC to [facility] to request meds be delivered to pt room once filled. Original Note: Notified by KAVIN Jerome that pt wishes to have FWW through [facility]. [facility].
[2024-09-24 13:58] VITALS: BP 134/51; PULSE 72; RESP 16; TEMP 36.8; O2SAT 98
== END 2024-09-24 14:12 | disposition home or self-care (01) ==
LOC: SDC 12:11 → MS3 12:11
PROVIDERS: Anesthesiology; Admitting Provider Specialist; Referring Provider Specialist; Visit Provider Specialist
PROC: 0SRD0JZ Replacement of Left Knee Joint with Synthetic Substitute, Open Approach (ICD-10-PCS; CPT 27447; principal; 2024-09-23 08:30)
DX: M17.12 Unilateral primary osteoarthritis, left knee (principal); E11.9 Type 2 diabetes mellitus without complications; I25.10 Atherosclerotic heart disease of native coronary artery without angina pectoris; I10 Essential (primary) hypertension; E78.00 Pure hypercholesterolemia, unspecified; Z79.82 Long term (current) use of aspirin; Z79.899 Other long term (current) drug therapy
CPT/HCPCS: 27447; S2900; 01402; 36415; 73560; 80048; 82962; 83735; 85027; 88304; 88305; 88311; 93005; 94668; 96361; 96365; 96366; 97162; 97166; 97530; 97535; 99221; 99252; C1776; A4216; G0378; G0463; J3475